=== PATIENT | male | born 1935 | race Caucasian/White ===

== ENCOUNTER 2016-11-11 11:26 | Inpatient (IN) | payer MEDICARE, BC ==
[2016-11-11] MEDS ORDERED: Lactated Ringers 1,000 ML IV SCH (18:15)
[2016-11-11] MEDS ORDERED: Non-Formulary Medication 1 Each (Ondansetron Hcl 8 MG) PO PRN (20:52)
[2016-11-11] MEDS ORDERED: Acetaminophen/oxyCODONE 325-5 MG Tab PO PRN (20:52)
[2016-11-11] MEDS ORDERED: Acetaminophen 500 MG Tab PO PRN (20:52)
[2016-11-11] MEDS ORDERED: PROCHLORPERAZINE MALEATE 10 MG PO PRN (20:52)
[2016-11-11] MEDS ORDERED: Ondansetron 4 MG Tab.DIS PO PRN (21:30)
[2016-11-11] MEDS ORDERED: Prochlorperazine 5 MG Tab PO PRN (21:30)
[2016-11-11] MEDS: Atropine/Diphenoxylate 0.025-2.5 MG Tab PO PRN (21:44)
[2016-11-11] MEDS: Simvastatin 20 MG Tab PO SCH (21:44)
[2016-11-11] MEDS ORDERED: Insulin Detemir 100 Units/ML 3 ML Pen SUBCUT SCH (22:00)
[2016-11-11] MEDS: Acetaminophen 500 MG Tab PO PRN (22:53)
[2016-11-11] MEDS ORDERED: Sodium Chloride 0.9% 1,000 ML IV SCH (23:00)
[2016-11-12] MEDS: Omeprazole 20 MG Cap.CR PO SCH (05:15)
[2016-11-12] MEDS ORDERED: DRONABINOL 2.5 MG PO SCH (07:00)
[2016-11-12] MEDS: Insulin Aspart 100 Units/ML 3 ML Pen SUBCUT SCH ×3 (08:22→18:15)
[2016-11-12] MEDS: Citalopram 20 MG Tab PO SCH (08:23)
[2016-11-12 08:52] LABS: CHLORIDE,CL 106 mmol/L (98-115); SODIUM,NA 140 mmol/L (136-145)
--- NOTE | 2016-11-12 11:10 | PCM.PN ---
- General Info Date of Service: 11/12/16 Admission Dx/Problem (Free Text): Chief complaint: Diarrhea History of present illness: Patient is an 81-year-old white male with a history of stage III rectal carcinoma-status post colostomy and abdominal perineal resection with colostomy in 2016. Patient presented on the day of admission-11/11-with the chief complaint of diarrhea, all very watery stools x2 days, progressing, abdominal pain at times. Patient was not able to eat do to some nausea, felt very weak and appeared dehydrated on the day of admission. Patient had significant decline in overall condition. Patient had stopped chemotherapy mainly due to side effects, along with significant myelosuppression-despite possible deleterious outcomes. Patient is diabetic with insolence supplements-since he had not eaten-blood sugar were elevated evening prior to admission around 280. Patient was admitted to hospital observation care for further workup evaluation and treatment, IV fluids for maintenance of hydration and rehydration. Patient also has a history of multiple DVTs in the past Patient reports today: Doing okay Denies any nausea, vomiting at present Stools and colostomy are still liquid Somewhat dark-history of Pepto-Bismol use yesterday early here and is also historian No abdominal pain at present but significant prior to admission-awake all night with pain prior to admission Quite weak yet Denied any chest pain or shortness of breath Able to take some fluids Denied any cough or cold Nurses report today: Still liquid stools Functional Status: Reports: pain controlled, tolerating diet (Liquid), ambulating (With assist), urinating - Review of Systems General: Reports: Weakness, Fatigue, Malaise. Denies: Fever, Chills, Appetite ( Not optimal-liquid diet) HEENT: Reports: no symptoms Pulmonary: Reports: no symptoms Cardiovascular: Reports: No Symptoms Gastrointestinal: Reports: Abdominal pain (None at present), Decreased appetite , Diarrhea (Persistent-pure liquid, concerned about potential blockage), Nausea, Vomiting Genitourinary: Reports: no symptoms Musculoskeletal: Reports: no symptoms Neurological: Reports: No Symptoms Psychiatric: Reports: no symptoms - Patient Data Vitals - most recent: Last Vital Signs Temp 96.8 F 11/12/16 05:20 Pulse 82 11/12/16 05:20 Resp 18 11/12/16 05:20 BP 103/62 11/12/16 05:20 Pulse Ox 96 11/12/16 05:20 Orthostatic Blood Pressure [ 90/53 Standing] Orthostatic Blood Pressure [ 107/66 Sitting] Orthostatic Blood Pressure [ 115/66 Supine] Weight - most recent: 141 lb 9.6 oz I&O - last 24 hours: Intake & Output 11/11/16 11/12/16 11/12/16 22:59 06:59 14:59 Intake Total 1426 932 Output Total 900 750 Balance 526 182 Lab Results last 24 hrs: Laboratory Results - last 24 hr 11/11/16 11/12/16 11/12/16 Range/Units 21:00 06:48 06:50 Sodium 140 (136-145) mmol/L Potassium 3.4 (3.3-5.3) mmol/L Chloride 106 (98-115) mmol/L Carbon Dioxide 27.6 (21.0-32.0) mmol/L BUN 12 (6-25) mg/dL Creatinine 0.63 (0.51-1.17) mg/dL Est Cr Clr Drug Dosing 82.13 mL/min Estimated GFR (MDRD) > 60 mL/min Glucose 147 H (70-110) mg/dL POC Glucose 277 H 145 H (74-106) mg/dl Calcium 8.3 L (8.7-10.3) mg/dL Philip Results last 24 hrs: Microbiology 11/11/16 17:55 Clostridium difficile Toxin A&B (M) - Final Stool / Feces NEGATIVE CDIFF TOXIN Med Orders - Current: Current Medications Acetaminophen (Tylenol Extra Strength) 1,000 mg PO Q6H PRN PRN Reason: Pain Last Admin: 11/11/16 22:53 Dose: 1,000 mg Allopurinol (Zyloprim) 200 mg PO DAILY@1800 [facility] Citalopram Hydrobromide (Celexa) 20 mg PO DAILY [facility] Last Admin: 11/12/16 08:23 Dose: 20 mg Diphenoxylate HCl/Atropine (Lomotil 0.025-2.5 Mg) 1 tab PO TID PRN PRN Reason: Diarrhea Last Admin: 11/11/16 21:44 Dose: 1 tab Sodium Chloride (Normal Saline) 1,000 mls @ 70 mls/hr IV ASDIRECTED [facility] Last Admin: 11/11/16 22:54 Dose: 70 mls/hr Insulin Aspart (Novolog) 5 unit SUBCUT TIDMEALS [facility] Last Admin: 11/12/16 08:22 Dose: 5 units Insulin Detemir (Levemir) 7 unit SUBCUT BEDTIME [facility] Lisinopril (Prinivil) 2.5 mg PO DAILY@1800 [facility] Non-Formulary Medication (Dronabinol [Marinol]) 2.5 mg PO BIDAC [facility] Omeprazole (Omeprazole) 20 mg PO DAILY@0600 [facility] Last Admin: 11/12/16 05:15 Dose: 20 mg Ondansetron HCl (Zofran Odt) 8 mg PO Q8H PRN PRN Reason: Nausea Oxycodone/Acetaminophen (Percocet 325-5 Mg) 1 tab PO Q4H PRN PRN Reason: Pain Prochlorperazine Maleate (Compazine) 10 mg PO Q6H PRN PRN Reason: Nausea Simvastatin (Zocor) 20 mg PO BEDTIME [facility] Last Admin: 11/11/16 21:44 Dose: 20 mg Sodium Chloride (Syrex Flush) 5 ml FLUSH Q8HR PRN PRN Reason: Keep Vein Open Discontinued Medications Acetaminophen (Tylenol Extra Strength) 1,000 mg PO Q4H PRN PRN Reason: Pain Lactated Ringer's (Ringers, Lactated) 1,000 mls @ 200 mls/hr IV ASDIRECTED [facility] Stop: 11/11/16 23:30 Last Admin: 11/11/16 18:17 Dose: 200 mls/hr Insulin Detemir (Levemir) 7 unit SUBCUT BEDTIME [facility] Stop: 11/11/16 22:01 Last Admin: 11/11/16 22:10 Dose: 7 units - Exam General: alert, oriented, cooperative, no acute distress, other (Lying in bed, thin, very pale, generalized fatigue/weakness, skin turgor fair) HEENT: Pupils equal, Pupils reactive, EOMI, Mucous membr. moist/pink. No: Scleral icterus Neck: supple, trachea midline, no JVD, no thyromegaly. No: lymphadenopathy Lungs: Clear to auscultation Cardiovascular: Regular Rate, Regular Rhythm, No Murmurs Abdomen: bowel sounds present (But significantly decreased), soft, no tenderness , no distension, other (Colostomy bag just pure dark almost black liquid-no solid or soft stool elements at all). No: rigidity, rebound, guarding, tenderness, distension, abnormal bowel sounds, organomegaly Extremities: no edema, no calf tenderness Skin: warm, dry, intact Neurological: no new focal deficit Psy/Mental Status: alert, normal affect, normal mood - Problem List Review Problem List Initiated/Reviewed/Updated: Yes - My Orders Last 24 Hours: My Active Orders 11/11/16 20:52 Acetaminophen/oxyCODONE [Percocet 325-5 MG] 1 tab PO Q4H PRN 11/11/16 20:59 Glucose [Blood Glucose Check, Bedside] [RC] QIDACANDBED 11/11/16 21:00 Simvastatin [Zocor] 20 mg PO BEDTIME 11/11/16 21:30 Ondansetron [Zofran ODT] 8 mg PO Q8H PRN Prochlorperazine [Compazine] 10 mg PO Q6H PRN 11/11/16 21:39 Acetaminophen [Tylenol Extra Strength] 1,000 mg PO Q6H PRN 11/12/16 06:00 Omeprazole 20 mg PO DAILY@0600 11/12/16 07:00 Dronabinol [Marinol] 2.5 mg PO BIDAC 11/12/16 08:00 Insulin Aspart [NovoLOG] 5 unit SUBCUT TIDMEALS 11/12/16 09:00 Citalopram [Celexa] 20 mg PO DAILY 11/12/16 18:00 Allopurinol [Zyloprim] 200 mg PO DAILY@1800 Lisinopril [Prinivil] 2.5 mg PO DAILY@1800 11/12/16 21:00 Insulin Detemir [Levemir] 7 unit SUBCUT BEDTIME - Assessment Assessment:: Acute fasglolg-cejrezrbyu-asdtgtmvgoxm etiology-rule out occult infection, rule out obstruction Acute fkkgjkdoxhe-gtjuedzp-dnnbzjrcw Acute on chronic Marked weakness secondary to above Abdominal pain-significant just prior to admission but controlled at present Rectal carcinoma-stage III Postchemotherapy-multiple weeks ago Status post colostomy and abdominal perineal resection 2010 Adult onset diabetes mellitus type 2 with insolent supplementation-fair control Chronic anticoagulation therapy Hypoalbuminemia Multiple DVT history Chronic kidney disease history Tabw-volu-thypcyutgz at present Hyperlipidemia Cholesterol lowering therapy Thrombocytopenia chronic - Plan Plan:: Reviewed present treatment regimen-continue same regimen except changes as below Increase IV fluids to normal saline at 125 cc per hour Increase diet to full liquids with no dairy products Stool for C&S, O&P, WBC, repeat C. difficile Changed to full admission CBC, CMP in a.m. CAT scan of the abdomen and pelvis in the a.m. Stool for occult blood Talked with patient and his at length-they agree with this evaluation and treatment plan
[2016-11-12] MEDS: Sodium Chloride 0.9% 1,000 ML IV SCH ×2 (12:22→20:28)
[2016-11-12] MEDS: Atropine/Diphenoxylate 0.025-2.5 MG Tab PO PRN (14:56)
[2016-11-12] MEDS: metroNIDAZOLE 500 MG Tab PO SCH ×2 (15:53→21:25)
[2016-11-12] MEDS ORDERED: Non-Formulary Medication 1 Each (Lisinopril [Lisinopril] 2.5 MG) PO SCH (18:00)
[2016-11-12] MEDS: Allopurinol 100 MG Tab PO SCH (18:15)
[2016-11-12] MEDS: Lisinopril 5 MG Tab PO SCH (18:16)
[2016-11-12] MEDS: Simvastatin 20 MG Tab PO SCH (21:25)
[2016-11-12] MEDS: Insulin Detemir 100 Units/ML 3 ML Pen SUBCUT SCH (21:25)
[2016-11-13] MEDS: Sodium Chloride 0.9% 1,000 ML IV SCH ×2 (04:15→11:54)
[2016-11-13] MEDS: Acetaminophen 500 MG Tab PO PRN (04:20)
[2016-11-13] MEDS: metroNIDAZOLE 500 MG Tab PO SCH ×3 (05:42→21:00)
[2016-11-13] MEDS: Omeprazole 20 MG Cap.CR PO SCH (05:42)
[2016-11-13] MEDS: Insulin Aspart 100 Units/ML 3 ML Pen SUBCUT SCH ×3 (08:29→17:53)
[2016-11-13] MEDS: Citalopram 20 MG Tab PO SCH (08:29)
[2016-11-13 08:41] LABS: CHLORIDE,CL 109 mmol/L (98-115); SODIUM,NA 139 mmol/L (136-145)
--- NOTE | 2016-11-13 09:53 | PCM.PN ---
- General Info Date of Service: 11/13/16 Admission Dx/Problem (Free Text): Chief complaint: Diarrhea History of present illness: Patient is an 81-year-old white male with a history of stage III rectal carcinoma-status post colostomy and abdominal perineal resection with colostomy in 2016. Patient presented on the day of admission-11/11-with the chief complaint of diarrhea, all very watery stools x2 days, progressing, abdominal pain at times. Patient was not able to eat do to some nausea, felt very weak and appeared dehydrated on the day of admission. Patient had significant decline in overall condition. Patient had stopped chemotherapy mainly due to side effects, along with significant myelosuppression-despite possible deleterious outcomes. Patient is diabetic with insolence supplements-since he had not eaten-blood sugar were elevated evening prior to admission around 280. Patient was admitted to hospital observation care for further workup evaluation and treatment, IV fluids for maintenance of hydration and rehydration. Patient also has a history of multiple DVTs in the past Repeat stool C. difficile positive-therefore metronidazole 500 mg by mouth every 8 hours added Patient reports today: Reports he is doing okay Denies any pain at present Intermittent abdominal pain Denies any nausea, vomiting Stool still very liquid and Denied any fever, chills, cough, shortness of breath Nurses report today: Looks better today Still having liquid stools Functional Status: Reports: pain controlled, tolerating diet, ambulating - Review of Systems General: Reports: Weakness, Fatigue, Malaise. Denies: Fever, Chills HEENT: Reports: no symptoms Pulmonary: Reports: no symptoms Cardiovascular: Reports: No Symptoms Gastrointestinal: Reports: Abdominal pain (At times), Decreased appetite ( Appetite fair). Denies: Hematochezia, Nausea, Vomiting Genitourinary: Reports: no symptoms Musculoskeletal: Reports: no symptoms Neurological: Reports: No Symptoms Psychiatric: Reports: no symptoms - Patient Data Vitals - most recent: Last Vital Signs Temp 97.9 F 11/13/16 06:25 Pulse 92 11/13/16 06:25 Resp 14 11/13/16 06:25 BP 102/68 11/13/16 06:25 Pulse Ox 95 11/13/16 06:25 Orthostatic Blood Pressure [ 90/53 Standing] Orthostatic Blood Pressure [ 107/66 Sitting] Orthostatic Blood Pressure [ 115/66 Supine] Weight - most recent: 141 lb 9.6 oz I&O - last 24 hours: Intake & Output 11/12/16 11/13/16 11/13/16 22:59 06:59 14:59 Intake Total 1322 1326 Output Total 1100 1050 Balance 222 276 Lab Results last 24 hrs: Laboratory Results - last 24 hr 11/12/16 11/12/16 11/12/16 Range/Units 11:31 17:36 21:18 WBC (5.0-10.0) 10^3/uL RBC (4.50-6.00) 10^6/uL Hgb (13.0-17.0) g/dL Hct (40.0-52.0) % MCV (82.0-92.0) fL MCH (27.0-31.0) pg MCHC (32.0-36.0) g/dL RDW (11.5-14.5) % Plt Count (150-300) 10^3/uL MPV (7.4-10.4) fL Neut % (Auto) (50.0-70.0) % Lymph % (Auto) (20.0-40.0) % Mower % (Auto) (2.0-8.0) % Eos % (Auto) (1.0-3.0) % Baso % (Auto) (0.0-1.0) % Neut # (Auto) (2.5-7.0) 10^3/uL Lymph # (Auto) (1.0-4.0) 10^3/uL Mower # (Auto) (0.1-0.8) 10^3/uL Eos # (Auto) (0.1-0.3) 10^3/uL Baso # (Auto) (0.0-0.1) 10^3/uL Sodium (136-145) mmol/L Potassium (3.3-5.3) mmol/L Chloride (98-115) mmol/L Carbon Dioxide (21.0-32.0) mmol/L BUN (6-25) mg/dL Creatinine (0.51-1.17) mg/dL Est Cr Clr Drug Dosing mL/min Estimated GFR (MDRD) mL/min Glucose (70-110) mg/dL POC Glucose 248 H 266 H 235 H (74-106) mg/dl Calcium (8.7-10.3) mg/dL Total Bilirubin (0.2-1.0) mg/dL AST (15-37) U/L ALT (12-78) U/L Alkaline Phosphatase (46-116) IU/L Total Protein (6.4-8.2) g/dL Albumin (3.00-4.80) g/dL 11/13/16 11/13/16 11/13/16 Range/Units 06:33 07:30 07:30 WBC 4.3 L (5.0-10.0) 10^3/uL RBC 2.70 L (4.50-6.00) 10^6/uL Hgb 8.3 L (13.0-17.0) g/dL Hct 25.2 L (40.0-52.0) % MCV 93.3 H (82.0-92.0) fL MCH 30.6 (27.0-31.0) pg MCHC 32.8 (32.0-36.0) g/dL RDW 20.1 H (11.5-14.5) % Plt Count 107 L (150-300) 10^3/uL MPV 6.2 L (7.4-10.4) fL Neut % (Auto) 71.9 H (50.0-70.0) % Lymph % (Auto) 13.2 L (20.0-40.0) % Mower % (Auto) 13.5 H (2.0-8.0) % Eos % (Auto) 1.1 (1.0-3.0) % Baso % (Auto) 0.3 (0.0-1.0) % Neut # (Auto) 3.1 (2.5-7.0) 10^3/uL Lymph # (Auto) 0.6 L (1.0-4.0) 10^3/uL Mower # (Auto) 0.6 (0.1-0.8) 10^3/uL Eos # (Auto) 0.0 L (0.1-0.3) 10^3/uL Baso # (Auto) 0.0 (0.0-0.1) 10^3/uL Sodium 139 (136-145) mmol/L Potassium 3.2 L (3.3-5.3) mmol/L Chloride 109 (98-115) mmol/L Carbon Dioxide 24.9 (21.0-32.0) mmol/L BUN 6 (6-25) mg/dL Creatinine 0.58 (0.51-1.17) mg/dL Est Cr Clr Drug Dosing 89.21 mL/min Estimated GFR (MDRD) > 60 mL/min Glucose 130 H (70-110) mg/dL POC Glucose 149 H (74-106) mg/dl Calcium 7.8 L (8.7-10.3) mg/dL Total Bilirubin 0.4 (0.2-1.0) mg/dL AST 15 (15-37) U/L ALT 8 L (12-78) U/L Alkaline Phosphatase 75 (46-116) IU/L Total Protein 5.3 L (6.4-8.2) g/dL Albumin 1.94 L (3.00-4.80) g/dL Philip Results last 24 hrs: Microbiology 11/12/16 12:15 Stool for WBCs - Final Stool / Feces NO WBC SEEN 11/12/16 12:15 Clostridium difficile Toxin A&B (M) - Final Stool / Feces - Stool, Liquid Positive C. Diff Toxin 11/12/16 12:15 Occult Blood - Final Stool / Feces Med Orders - Current: Current Medications Acetaminophen (Tylenol Extra Strength) 1,000 mg PO Q6H PRN PRN Reason: Pain Last Admin: 11/13/16 04:20 Dose: 1,000 mg Allopurinol (Zyloprim) 200 mg PO DAILY@1800 [facility] Last Admin: 11/12/16 18:15 Dose: 200 mg Citalopram Hydrobromide (Celexa) 20 mg PO DAILY [facility] Last Admin: 11/13/16 08:29 Dose: 20 mg Diphenoxylate HCl/Atropine (Lomotil 0.025-2.5 Mg) 1 tab PO TID PRN PRN Reason: Diarrhea Last Admin: 11/12/16 14:56 Dose: 1 tab Sodium Chloride (Normal Saline) 1,000 mls @ 125 mls/hr IV ASDIRECTED [facility] Last Admin: 11/13/16 04:15 Dose: 125 mls/hr Insulin Aspart (Novolog) 5 unit SUBCUT TIDMEALS [facility] Last Admin: 11/13/16 08:29 Dose: 5 units Insulin Detemir (Levemir) 7 unit SUBCUT BEDTIME [facility] Last Admin: 11/12/16 21:25 Dose: 7 units Lisinopril (Prinivil) 2.5 mg PO DAILY@1800 [facility] Last Admin: 11/12/16 18:16 Dose: 2.5 mg Metronidazole (Flagyl) 500 mg PO Q8HR [facility] Last Admin: 11/13/16 05:42 Dose: 500 mg Non-Formulary Medication (Dronabinol [Marinol]) 2.5 mg PO BIDAC [facility] Omeprazole (Omeprazole) 20 mg PO DAILY@0600 [facility] Last Admin: 11/13/16 05:42 Dose: 20 mg Ondansetron HCl (Zofran Odt) 8 mg PO Q8H PRN PRN Reason: Nausea Oxycodone/Acetaminophen (Percocet 325-5 Mg) 1 tab PO Q4H PRN PRN Reason: Pain Prochlorperazine Maleate (Compazine) 10 mg PO Q6H PRN PRN Reason: Nausea Simvastatin (Zocor) 20 mg PO BEDTIME [facility] Last Admin: 11/12/16 21:25 Dose: 20 mg Sodium Chloride (Syrex Flush) 5 ml FLUSH Q8HR PRN PRN Reason: Keep Vein Open Discontinued Medications Acetaminophen (Tylenol Extra Strength) 1,000 mg PO Q4H PRN PRN Reason: Pain Lactated Ringer's (Ringers, Lactated) 1,000 mls @ 200 mls/hr IV ASDIRECTED [facility] Stop: 11/11/16 23:30 Last Admin: 11/11/16 18:17 Dose: 200 mls/hr Sodium Chloride (Normal Saline) 1,000 mls @ [facility] Last Admin: 11/11/16 22:54 Dose: 70 mls/hr Insulin Detemir (Levemir) 7 unit SUBCUT BEDTIME [facility] Stop: 11/11/16 22:01 Last Admin: 11/11/16 22:10 Dose: 7 units - Exam General: alert, oriented, cooperative, no acute distress, other (Sitting up in chair-sleeping when I entered the room-wakes up easily, very fatigued overall, skin warm dry, pale no acute respiratory cardiac distress) HEENT: Pupils equal, Pupils reactive, EOMI, Mucous membr. moist/pink. No: Scleral icterus Neck: supple, trachea midline, no JVD, no thyromegaly. No: lymphadenopathy Lungs: Clear to auscultation, Normal respiratory effort Cardiovascular: Regular Rate, Regular Rhythm, No Murmurs Abdomen: bowel sounds present, soft, no distension, tenderness (Very slight nonspecific diffuse tenderness), other (Colostomy still draining 90% liquid clear broad-no major melena today as compared to yesterday, few pieces of firmer stool noted around colostomy). No: rigidity, rebound, guarding, distension, abnormal bowel sounds, organomegaly Extremities: no edema, no calf tenderness Skin: warm, dry, intact Neurological: no new focal deficit, other (Significant generalized weakness/ fatigue) Psy/Mental Status: alert, normal affect, normal mood - Problem List Review Problem List Initiated/Reviewed/Updated: Yes - My Orders Last 24 Hours: My Active Orders 11/12/16 09:00 Citalopram [Celexa] 20 mg PO DAILY 11/12/16 11:26 Admission Status [Patient Status] [ADT] Routine 11/12/16 11:30 Sodium Chloride 0.9% [Normal Saline] 1,000 ml IV ASDIRECTED 11/12/16 15:45 metroNIDAZOLE [Flagyl] 500 mg PO Q8HR 11/12/16 18:00 Allopurinol [Zyloprim] 200 mg PO DAILY@1800 Lisinopril [Prinivil] 2.5 mg PO DAILY@1800 11/12/16 21:00 Insulin Detemir [Levemir] 7 unit SUBCUT BEDTIME 11/12/16 Lunch [employer] Diet [DIET] Full Liquid Diet [DIET] - Assessment Assessment:: Acute hxqthvhk-osapuyorlg-oxfxqmwwy to pseudomembranous colitis/C. difficile- appears to be slightly better today but very slight Acute dehydration-clinically controlled Acute on chronic Marked weakness secondary to above-still not optimal Hypokalemia secondary to above Anemia-significant increase-some delusional but also GI blood loss GI bleeding-suspect secondary to pseudomembranous colitis and potential rectal carcinoma Abdominal pain-significant just prior to admission but controlled at present- still having some pain at times Rectal carcinoma-stage III-rule out recurrence Postchemotherapy-multiple weeks ago Status post colostomy and abdominal perineal resection 2009 Adult onset diabetes mellitus type 2 with insolent supplementation-fair control Chronic anticoagulation therapy Hypoalbuminemia Multiple DVT history Chronic kidney disease history Mvlz-cxat-ollstgbiom at present Hyperlipidemia Cholesterol lowering therapy Thrombocytopenia chronic - Plan Plan:: Reviewed present treatment regimen-continue same regimen except changes as below Decrease IV fluids to normal saline at 50 cc per hour Increase diet to ADA soft with no dairy products Potassium 20 mEq one by mouth twice a day CBC, BMP in a.m. CAT scan of the abdomen and pelvis-plan for in the a.m. instead of today Talked with patient at length-he agrees with this evaluation and treatment plan
[2016-11-13] MEDS: Lisinopril 5 MG Tab PO SCH (17:52)
[2016-11-13] MEDS: Potassium Chloride 10 MEQ Tab.ER PO SCH (17:52)
[2016-11-13] MEDS: Allopurinol 100 MG Tab PO SCH (17:53)
[2016-11-13] MEDS: Insulin Detemir 100 Units/ML 3 ML Pen SUBCUT SCH (20:51)
[2016-11-13] MEDS: Simvastatin 20 MG Tab PO SCH (20:51)
[2016-11-14] MEDS: metroNIDAZOLE 500 MG Tab PO SCH ×3 (05:48→21:56)
[2016-11-14] MEDS: Omeprazole 20 MG Cap.CR PO SCH (05:48)
[2016-11-14 07:48] LABS: CHLORIDE,CL 107 mmol/L (98-115); SODIUM,NA 141 mmol/L (136-145)
[2016-11-14] MEDS ORDERED: Iopamidol 612 MG/ML 75 ML Bottle IVPUSH ONE (08:52)
[2016-11-14] MEDS ORDERED: Sodium Chloride 0.9% 50 ML SDV FLUSH SCH (09:00)
[2016-11-14] MEDS: Potassium Chloride 10 MEQ Tab.ER PO SCH (09:01)
[2016-11-14] MEDS: Citalopram 20 MG Tab PO SCH (09:02)
[2016-11-14] MEDS: Insulin Aspart 100 Units/ML 3 ML Pen SUBCUT SCH ×3 (09:02→17:54)
[2016-11-14] MEDS: Sodium Chloride 0.9% 1,000 ML IV SCH (10:22)
[2016-11-14] MEDS: Sodium Chloride 0.9% 5 ML Syringe FLUSH PRN (10:23)
[2016-11-14] MEDS ORDERED: Potassium Chloride 20 MEQ Tab.ER PO SCH (12:52)
--- NOTE | 2016-11-14 12:59 | PN ---
11/14/2016 PATIENT NAME: RIAN JUSTIN SUBJECTIVE: This is an 81-year-old gentleman, who came to the clinic with concerns about severe diarrhea out of his colostomy. The patient does have a history of colon cancer and had a colostomy placement. It was coming out for two days of just mostly water out of his colostomy. He was admitted for dehydration. The patient was found to be positive for Clostridium difficile. The patient states that he is feeling okay today. He has no abdominal pain. He has been eating okay. He denies any abdominal cramping. He states that he is still getting a lot of water out of his colostomy. OBJECTIVE: VITAL SIGNS: Today, temperature is 98.1, pulse is 96, blood pressure is 123/72, respiratory rate is 16, oxygen saturations on room air are 98%. GENERAL: This is an elderly white gentleman, in no acute distress. LUNGS: Sounds are clear throughout lung rojas. ABDOMEN: Nontender and nondistended. Bowel sounds are hyperactive. The contents of colostomy bag are basically green water. HEART: Tones are regular rate and rhythm. No murmurs identified. The patient is pale in color. LABORATORY DATA: The patient's lab work today, CBC shows white count within normal range of 5.0, hemoglobin is 9.5. Chemistry panel is unremarkable. IMPRESSION AND PLAN: 1. Clostridium difficile infection. We will continue with Flagyl 500 mg IV every 8 hours. We will continue with IV fluids of normal saline at 50 mL an hour. We will continue with omeprazole 20 mg daily. We will also continue with Lomotil as needed. We will continue with a soft diet with no milk products. CT scan of abdomen performed today does show mild ascites with inflammatory changes consistent with C-diff infection, some gallbladder wall thickening per radiology. 2. History of gout. Continue with allopurinol 200 mg daily. 3. History of depression. Continue with Celexa 20 mg daily. 4. History of diabetes mellitus. Continue with Levemir 7 units twice a day, along with sliding scale NovoLog insulin. Also continue with lisinopril 2.5 mg daily for renal protection. We will continue with blood sugar checks 4 times daily. 5. History of hyperlipidemia. Continue with Zocor 20 mg daily. /[id number]/MODL MTDD
[2016-11-14] MEDS: Lisinopril 5 MG Tab PO SCH (17:53)
[2016-11-14] MEDS: Allopurinol 100 MG Tab PO SCH (17:54)
[2016-11-14] MEDS: Potassium Chloride 20 MEQ Tab.ER PO SCH (17:54)
[2016-11-14] MEDS: Simvastatin 20 MG Tab PO SCH (20:56)
[2016-11-14] MEDS: Insulin Detemir 100 Units/ML 3 ML Pen SUBCUT SCH (20:56)
[2016-11-15] MEDS: metroNIDAZOLE 500 MG Tab PO SCH ×3 (06:09→21:16)
[2016-11-15] MEDS: Omeprazole 20 MG Cap.CR PO SCH (06:09)
[2016-11-15] MEDS: Sodium Chloride 0.9% 1,000 ML IV SCH ×2 (06:09→22:38)
[2016-11-15] MEDS: Citalopram 20 MG Tab PO SCH (08:10)
[2016-11-15] MEDS: Insulin Aspart 100 Units/ML 3 ML Pen SUBCUT SCH ×3 (08:10→18:12)
[2016-11-15] MEDS: Potassium Chloride 20 MEQ Tab.ER PO SCH ×2 (08:10→18:15)
[2016-11-15] MEDS: B.Bifidum/B.Longum/L.Acidophilus/L.Rhamnosus (Probiotic) Cap PO SCH ×2 (10:18→18:15)
--- NOTE | 2016-11-15 12:03 | PN ---
11/15/2016 PATIENT NAME: RIAN JUSTIN SUBJECTIVE: This is an 81-year-old patient who had presented to the clinic with concerns about diarrhea. The patient recently had colon resection due to colon cancer and had a colostomy placed. He had stated that he was having lots of watery stools from his colostomy. He was admitted to the hospital and found out that he had C. diff. The patient states today he feels fine. He says he has no abdominal pain. No nausea. He does not really know why he is in the hospital. He does state that he continues to have lots of watery stools through his colostomy. He denies any fever or chills. OBJECTIVE: VITAL SIGNS: Today, temperature is 98.3, pulse is 107, blood pressure is 118/72. The patient's respiratory rate is 18, oxygen saturations are 97% on room air. GENERAL: This is an elderly, male, in no acute distress. HEART: Tones are regular rate and rhythm. LUNGS: Sounds are clear throughout lung rojas. ABDOMEN: Soft, nontender, nondistended. Hyperactive bowel sounds. Colostomy is draining green water with some chunks of stool. LAB WORK: He did not have any lab work drawn today. Yesterday, his CBC showed white count at 5.0, hemoglobin 9.5. Chemistry panel was unremarkable. IMPRESSION AND PLAN: 1. Clostridium difficile infection. We will continue with Flagyl 500 mg every 8 hours orally. We will increase patient's IV fluids of normal saline to 100 mL an hour. The patient's I's and Os were to the negative. He has been putting lots of stool out of his colostomy bag. We will continue with omeprazole 20 mg daily. Discontinued Lomotil today. We advanced the patient's diet to an ADA diabetic diet with no milk products. CT of the abdomen performed yesterday did show some mild ascites, inflammatory changes consistent with C. diff infection and some gallbladder wall thickening with no signs of cholecystitis. 2. History of gout. Continue with allopurinol 200 mg daily. 3. History of depression. Continue with Celexa 20 mg daily. 4. History of diabetes mellitus. Continue with blood sugar checks four times a day. We will continue with Levemir 7 units twice a day along with the patient's NovoLog, takes NovoLog 5 units with each meal. We will also continue with lisinopril 2.5 mg daily for renal protection. 5. History of hyperlipidemia. Continue with Zocor 20 mg daily. OVERALL PLAN: We will see if oral Flagyl is effective. If not we may consider switching to oral vancomycin. We will continue with IV fluids for hydration. /[id number]/MODL MTDD
[2016-11-15] MEDS: Lisinopril 5 MG Tab PO SCH (18:16)
[2016-11-15] MEDS: Allopurinol 100 MG Tab PO SCH (18:17)
[2016-11-15] MEDS: Insulin Detemir 100 Units/ML 3 ML Pen SUBCUT SCH (21:16)
[2016-11-15] MEDS: Simvastatin 20 MG Tab PO SCH (21:16)
[2016-11-15] MEDS: Sodium Chloride 0.9% 5 ML Syringe FLUSH PRN (22:39)
[2016-11-16] MEDS: Sodium Chloride 0.9% 5 ML Syringe FLUSH PRN (06:08)
[2016-11-16] MEDS: metroNIDAZOLE 500 MG Tab PO SCH (06:08)
[2016-11-16] MEDS: Omeprazole 20 MG Cap.CR PO SCH (06:08)
[2016-11-16 07:57] LABS: CHLORIDE,CL 107 mmol/L (98-115); SODIUM,NA 141 mmol/L (136-145)
[2016-11-16] MEDS ORDERED: metroNIDAZOLE/Normal Saline 500 MG in Premix Bag 1 BAG IV SCH (08:15)
[2016-11-16] MEDS: Potassium Chloride 20 MEQ Tab.ER PO SCH ×2 (08:44→17:50)
[2016-11-16] MEDS: Citalopram 20 MG Tab PO SCH (08:45)
[2016-11-16] MEDS: Insulin Aspart 100 Units/ML 3 ML Pen SUBCUT SCH ×3 (08:46→17:51)
[2016-11-16] MEDS: VANCOMYCIN PO SCH ×4 (10:28→21:34)
[2016-11-16] MEDS: B.Bifidum/B.Longum/L.Acidophilus/L.Rhamnosus (Probiotic) Cap PO SCH ×2 (10:29→17:50)
--- NOTE | 2016-11-16 13:04 | PN ---
11/16/2016 PATIENT NAME: RIAN JUSTIN SUBJECTIVE: The patient states that he has been eating okay. He has no nausea, no vomiting. He denies any abdominal pain. He denies any fever or chills. He states that he is having still lots of liquid output coming out of his colostomy. He has no further questions. OBJECTIVE: VITAL SIGNS: Today, temperature is 97.6, pulse is 83, blood pressure is 142/85, the patient's respiratory rate is 16, oxygen saturations are 98% on room air. GENERAL: This is an elderly white gentleman in no acute distress. LUNGS: Sounds are clear throughout lung rojas. HEART: Tones are regular rate and rhythm. No murmurs identified. ABDOMEN: Soft, nontender. Bowel sounds are hyperactive. Colostomy bag has green water with few chunks in it. No pain with palpation to the abdomen. LABORATORY DATA: The patient's laboratory work that was obtained today: Chemistry panel shows sodium 141, potassium at 4.4, BUN at 5, creatinine at 0.63. Otherwise, the rest of the panel is unremarkable. IMPRESSION AND PLAN: 1. Clostridium difficile infection. Plan: Nursing staff had reported that they found pills of Flagyl in the patient's colostomy bag. I am going to switch the patient from Flagyl orally to Flagyl 500 mg every 8 hours IV. We will continue with probiotics orally. I am also going to add vancomycin oral suspension 250 mg four times a day for dual therapy. We will continue with IV hydration, normal saline at 100 mL an hour. The patient's input and output shows that he is negative 1825 mL. His weight has been stable. We will continue with an ADA diabetic diet with no milk products. Lomotil or Imodium were discontinued. 2. History of gout. Continue with allopurinol 200 mg daily. 3. History of depression. Plan: Continue with Celexa 20 mg daily. 4. History of diabetes mellitus. Plan: Continue with blood sugar checks four times a day. We will continue with Levemir 7 units twice a day along with the patient's NovoLog, may take 5 units with each meal. Also continue with lisinopril 2.5 mg daily for renal protection. The patient's blood sugars have been running very good, within acceptable range. 5. History of hyperlipidemia. Plan: Continue with Zocor 20 mg daily. 6. Hypokalemia. Resolved. The patient's potassium was 3.8. He was given a potassium cocktail yesterday. Today, his potassium is within normal range at 4.4. /[id number]/MODL MTDD
[2016-11-16] MEDS: metroNIDAZOLE/Normal Saline 500 MG in Premix Bag 1 BAG IV SCH ×2 (13:44→21:36)
[2016-11-16] MEDS: Lisinopril 5 MG Tab PO SCH (17:52)
[2016-11-16] MEDS: Allopurinol 100 MG Tab PO SCH (17:53)
[2016-11-16] MEDS: Sodium Chloride 0.9% 1,000 ML IV SCH (19:40)
[2016-11-16] MEDS: Insulin Detemir 100 Units/ML 3 ML Pen SUBCUT SCH (21:32)
[2016-11-16] MEDS: Simvastatin 20 MG Tab PO SCH (21:35)
[2016-11-17] MEDS: Omeprazole 20 MG Cap.CR PO SCH (05:47)
[2016-11-17] MEDS: metroNIDAZOLE/Normal Saline 500 MG in Premix Bag 1 BAG IV SCH ×3 (05:48→21:54)
[2016-11-17] MEDS: Potassium Chloride 20 MEQ Tab.ER PO SCH ×2 (08:15→18:00)
[2016-11-17] MEDS: Citalopram 20 MG Tab PO SCH (08:16)
[2016-11-17] MEDS: Insulin Aspart 100 Units/ML 3 ML Pen SUBCUT SCH ×3 (08:22→18:02)
[2016-11-17] MEDS: Sodium Chloride 0.9% 1,000 ML IV SCH ×2 (08:24→19:22)
[2016-11-17 09:05] LABS: CHLORIDE,CL 106 mmol/L (98-115); SODIUM,NA 138 mmol/L (136-145)
[2016-11-17] MEDS: VANCOMYCIN PO SCH ×4 (10:03→20:39)
[2016-11-17] MEDS: Octreotide 100 MCG/ML SDV SUBCUT SCH ×2 (10:03→20:40)
--- NOTE | 2016-11-17 11:34 | PN ---
11/17/2016 PATIENT NAME: RIAN JUSTIN SUBJECTIVE: The patient states that his appetite has not been real good, but he has been eating. He denies any abdominal pain. He denies any nausea. He states that he has been having a lot of output of his colostomy. He has been going to the bathroom a lot. He feels okay otherwise. OBJECTIVE: VITAL SIGNS: Today, temperature is 98.7, pulse is 99, blood pressure is 136/76, respiratory rate is 16, oxygen saturation 97% on room air. GENERAL: This is an elderly white male, in no acute distress. HEART: Tones are regular rate and rhythm. No murmurs identified. LUNGS: Sounds are clear with auscultation through all lung rojas. ABDOMEN: Soft, nontender. Bowel sounds are hyperactive. Colostomy has mostly green water with chunks in his colostomy bag. LABS: The patient's I and O from yesterday, he is still -2175 mL. Lab work that was obtained today; sodium was within normal range at 138, potassium 4.3, chloride 106, BUN 5, creatinine 0.65, GFR greater than 60, calcium is 8.7. IMPRESSION AND PLAN: 1. Clostridium difficile infection. Plan; we will continue with Flagyl 500 mg IV every 8 hours along with vancomycin oral suspension 250 mg four times a day. We will continue with normal saline at 100 mL/h. We will continue with accurate I's and O's. We are going to start the patient on octreotide subcutaneous injections 100 mg twice a day to help slow done his colostomy output. We will continue with an ADA diet with no milk products. Lomotil and Imodium have been discontinued. We do have the patient on probiotics one capsule twice a day. 2. History of gout. Plan; continue with allopurinol 200 mg daily. 3. History of depression. Plan; continue with Celexa 20 mg daily. 4. History of diabetes mellitus. Plan; continue with blood sugar checks four times a day. We will continue with Levemir 7 units twice a day along with patient's NovoLog, he takes five units with each meal. We will also continue with lisinopril 2.5 mg daily for renal protection. The patient's blood sugars have been well controlled while here in the hospital. 5. History of hyperlipidemia. Plan; continue with Zocor 20 mg daily. /[id number]/MODL MTDD
[2016-11-17] MEDS: B.Bifidum/B.Longum/L.Acidophilus/L.Rhamnosus (Probiotic) Cap PO SCH ×2 (12:55→18:01)
[2016-11-17] MEDS: Lisinopril 5 MG Tab PO SCH (18:01)
[2016-11-17] MEDS: Allopurinol 100 MG Tab PO SCH (18:05)
[2016-11-17] MEDS: Simvastatin 20 MG Tab PO SCH (20:39)
[2016-11-17] MEDS: Insulin Detemir 100 Units/ML 3 ML Pen SUBCUT SCH (20:50)
[2016-11-18] MEDS: Omeprazole 20 MG Cap.CR PO SCH (05:48)
[2016-11-18] MEDS: metroNIDAZOLE/Normal Saline 500 MG in Premix Bag 1 BAG IV SCH ×3 (05:49→21:59)
[2016-11-18 07:45] LABS: CHLORIDE,CL 108 mmol/L (98-115); SODIUM,NA 141 mmol/L (136-145)
[2016-11-18] MEDS: Potassium Chloride 20 MEQ Tab.ER PO SCH ×2 (08:10→17:15)
[2016-11-18] MEDS: Insulin Aspart 100 Units/ML 3 ML Pen SUBCUT SCH ×3 (08:11→17:47)
[2016-11-18] MEDS: B.Bifidum/B.Longum/L.Acidophilus/L.Rhamnosus (Probiotic) Cap PO SCH ×2 (08:11→17:15)
[2016-11-18] MEDS: Citalopram 20 MG Tab PO SCH (08:13)
[2016-11-18] MEDS: Sodium Chloride 0.9% 1,000 ML IV SCH ×2 (08:15→19:50)
[2016-11-18] MEDS: VANCOMYCIN PO SCH ×4 (09:53→21:57)
[2016-11-18] MEDS: Octreotide 100 MCG/ML SDV SUBCUT SCH ×2 (09:54→21:58)
[2016-11-18] MEDS: Lisinopril 5 MG Tab PO SCH (17:15)
[2016-11-18] MEDS: Allopurinol 100 MG Tab PO SCH (17:18)
[2016-11-18] MEDS: Insulin Detemir 100 Units/ML 3 ML Pen SUBCUT SCH (21:58)
[2016-11-18] MEDS: Simvastatin 20 MG Tab PO SCH (21:59)
[2016-11-19] MEDS: Omeprazole 20 MG Cap.CR PO SCH (06:16)
[2016-11-19] MEDS: metroNIDAZOLE/Normal Saline 500 MG in Premix Bag 1 BAG IV SCH ×3 (06:17→21:28)
[2016-11-19] MEDS: Sodium Chloride 0.9% 1,000 ML IV SCH (07:56)
[2016-11-19] MEDS: Insulin Aspart 100 Units/ML 3 ML Pen SUBCUT SCH ×3 (07:57→18:00)
[2016-11-19] MEDS: Potassium Chloride 20 MEQ Tab.ER PO SCH ×2 (07:57→17:31)
[2016-11-19] MEDS: B.Bifidum/B.Longum/L.Acidophilus/L.Rhamnosus (Probiotic) Cap PO SCH ×2 (07:57→17:32)
[2016-11-19] MEDS: Citalopram 20 MG Tab PO SCH (08:00)
[2016-11-19] MEDS: Octreotide 100 MCG/ML SDV SUBCUT SCH ×2 (09:29→21:24)
[2016-11-19] MEDS: VANCOMYCIN PO SCH ×4 (09:30→21:22)
[2016-11-19 09:41] LABS: CHLORIDE,CL 107 mmol/L (98-115); SODIUM,NA 141 mmol/L (136-145)
--- NOTE | 2016-11-19 10:10 | PCM.PN ---
- General Info Date of Service: 11/19/16 Subjective Update: Patient reports he is feeling quite well. He states he doesn't have much of an appetite, but is eating. He states he hasn't been drinking as much as he should. He states he is a little weak especially when he first gets up. Functional Status: Reports: pain controlled, tolerating diet, ambulating, urinating. Denies: new symptoms - Review of Systems General: Reports: Weakness, Fatigue Pulmonary: Denies: shortness of breath Cardiovascular: Denies: Chest Pain, Edema Gastrointestinal: Reports: Decreased appetite, Other (Colostomy bag-stools have slowed down). Denies: Abdominal pain, Nausea, Vomiting - Patient Data Vitals - most recent: Last Vital Signs Temp 98.0 F 11/19/16 06:13 Pulse 83 11/19/16 06:13 Resp 20 11/19/16 06:13 BP 111/67 11/19/16 06:13 Pulse Ox 97 11/19/16 06:13 Orthostatic Blood Pressure [ 90/53 Standing] Orthostatic Blood Pressure [ 107/66 Sitting] Orthostatic Blood Pressure [ 115/66 Supine] Weight - most recent: 141 lb 9.6 oz I&O - last 24 hours: Intake & Output 11/18/16 11/19/16 11/19/16 22:59 06:59 14:59 Intake Total 120 822 Balance 120 822 Lab Results last 24 hrs: Laboratory Results - last 24 hr 11/18/16 11/18/16 11/18/16 Range/Units 11:16 17:45 21:54 WBC (5.0-10.0) 10^3/uL RBC (4.50-6.00) 10^6/uL Hgb (13.0-17.0) g/dL Hct (40.0-52.0) % MCV (82.0-92.0) fL MCH (27.0-31.0) pg MCHC (32.0-36.0) g/dL RDW (11.5-14.5) % Plt Count (150-300) 10^3/uL MPV (7.4-10.4) fL Neut % (Auto) (50.0-70.0) % Lymph % (Auto) (20.0-40.0) % [place] % (Auto) (2.0-8.0) % Eos % (Auto) (1.0-3.0) % Baso % (Auto) (0.0-1.0) % Neut # (Auto) (2.5-7.0) 10^3/uL Lymph # (Auto) (1.0-4.0) 10^3/uL [place] # (Auto) (0.1-0.8) 10^3/uL Eos # (Auto) (0.1-0.3) 10^3/uL Baso # (Auto) (0.0-0.1) 10^3/uL Sodium (136-145) mmol/L Potassium (3.3-5.3) mmol/L Chloride (98-115) mmol/L Carbon Dioxide (21.0-32.0) mmol/L BUN (6-25) mg/dL Creatinine (0.51-1.17) mg/dL Est Cr Clr Drug Dosing mL/min Estimated GFR (MDRD) mL/min Glucose (70-110) mg/dL POC Glucose 199 H 163 H 144 H (74-106) mg/dl Calcium (8.7-10.3) mg/dL Total Bilirubin (0.2-1.0) mg/dL AST (15-37) U/L ALT (12-78) U/L Alkaline Phosphatase (46-116) IU/L Total Protein (6.4-8.2) g/dL Albumin (3.00-4.80) g/dL 11/19/16 11/19/16 11/19/16 Range/Units 06:16 09:10 09:10 WBC 5.4 (5.0-10.0) 10^3/uL RBC 3.06 L (4.50-6.00) 10^6/uL Hgb 9.2 L (13.0-17.0) g/dL Hct 29.0 L (40.0-52.0) % MCV 94.7 H (82.0-92.0) fL MCH 30.0 (27.0-31.0) pg MCHC 31.7 L (32.0-36.0) g/dL RDW 19.1 H (11.5-14.5) % Plt Count 144 L (150-300) 10^3/uL MPV 6.0 L (7.4-10.4) fL Neut % (Auto) 76.4 H (50.0-70.0) % Lymph % (Auto) 9.1 L (20.0-40.0) % [place] % (Auto) 10.9 H (2.0-8.0) % Eos % (Auto) 3.1 H (1.0-3.0) % Baso % (Auto) 0.5 (0.0-1.0) % Neut # (Auto) 4.1 (2.5-7.0) 10^3/uL Lymph # (Auto) 0.5 L (1.0-4.0) 10^3/uL [place] # (Auto) 0.6 (0.1-0.8) 10^3/uL Eos # (Auto) 0.2 (0.1-0.3) 10^3/uL Baso # (Auto) 0.0 (0.0-0.1) 10^3/uL Sodium 141 (136-145) mmol/L Potassium 4.1 (3.3-5.3) mmol/L Chloride 107 (98-115) mmol/L Carbon Dioxide 26.4 (21.0-32.0) mmol/L BUN 9 (6-25) mg/dL Creatinine 0.67 (0.51-1.17) mg/dL Est Cr Clr Drug Dosing 77.22 mL/min Estimated GFR (MDRD) > 60 mL/min Glucose 168 H (70-110) mg/dL POC Glucose 87 (74-106) mg/dl Calcium 8.1 L (8.7-10.3) mg/dL Total Bilirubin 0.4 (0.2-1.0) mg/dL AST 15 (15-37) U/L ALT 8 L (12-78) U/L Alkaline Phosphatase 60 (46-116) IU/L Total Protein 5.7 L (6.4-8.2) g/dL Albumin 2.29 L (3.00-4.80) g/dL Med Orders - Current: Current Medications Acetaminophen (Tylenol Extra Strength) 1,000 mg PO Q6H PRN PRN Reason: Pain Last Admin: 11/13/16 04:20 Dose: 1,000 mg Allopurinol (Zyloprim) 200 mg PO DAILY@1800 [facility] Last Admin: 11/18/16 17:18 Dose: 200 mg Citalopram Hydrobromide (Celexa) 20 mg PO DAILY [facility] Last Admin: 11/19/16 08:00 Dose: 20 mg Metronidazole 500 mg/ Premix 100 mls @ 100 mls/hr IV Q8H [facility] Last Admin: 11/19/16 06:17 Dose: 100 mls/hr Insulin Aspart (Novolog) 5 unit SUBCUT TIDMEALS [facility] Last Admin: 11/19/16 07:57 Dose: Not Given Insulin Detemir (Levemir) 7 unit SUBCUT BEDTIME [facility] Last Admin: 11/18/16 21:58 Dose: 7 units Lactobacillus Acidophilus/Rhamnosus (Multi-Ludmila Plus) 1 cap PO BID@0800,1800 [facility] Last Admin: 11/19/16 07:57 Dose: 1 cap Lisinopril (Prinivil) 2.5 mg PO DAILY@1800 [facility] Last Admin: 11/18/16 17:15 Dose: 2.5 mg Octreotide Acetate (Sandostatin) 100 mcg SUBCUT BID [facility] Last Admin: 11/19/16 09:29 Dose: 100 mcg Omeprazole (Omeprazole) 20 mg PO DAILY@0600 [facility] Last Admin: 11/19/16 06:16 Dose: 20 mg Ondansetron HCl (Zofran Odt) 8 mg PO Q8H PRN PRN Reason: Nausea Oxycodone/Acetaminophen (Percocet 325-5 Mg) 1 tab PO Q4H PRN PRN Reason: Pain Potassium Chloride (Klor-Con M20) 20 meq PO BIDMEALS [facility] Last Admin: 11/19/16 07:57 Dose: 20 meq Prochlorperazine Maleate (Compazine) 10 mg PO Q6H PRN PRN Reason: Nausea Simvastatin (Zocor) 20 mg PO BEDTIME [facility] Last Admin: 11/18/16 21:59 Dose: 20 mg Sodium Chloride (Syrex Flush) 5 ml FLUSH Q8HR PRN PRN Reason: Keep Vein Open Last Admin: 11/16/16 06:08 Dose: 5 ml Vancomycin HCl (Vancomycin) 0.25 gm PO QID [facility] Last Admin: 11/19/16 09:30 Dose: 0.25 gm Discontinued Medications Acetaminophen (Tylenol Extra Strength) 1,000 mg PO Q4H PRN PRN Reason: Pain Diphenoxylate HCl/Atropine (Lomotil 0.025-2.5 Mg) 1 tab PO TID PRN PRN Reason: Diarrhea Last Admin: 11/12/16 14:56 Dose: 1 tab Lactated Ringer's (Ringers, Lactated) 1,000 mls @ 200 mls/hr IV ASDIRECTED [facility] Stop: 11/11/16 23:30 Last Admin: 11/11/16 18:17 Dose: 200 mls/hr Sodium Chloride (Normal Saline) 1,000 mls @ 70 mls/hr IV ASDIRECTED [facility] Last Admin: 11/11/16 22:54 Dose: 70 mls/hr Sodium Chloride (Normal Saline) 1,000 mls @ 125 mls/hr IV ASDIRECTED [facility] Last Admin: 11/13/16 04:15 Dose: 125 mls/hr Sodium Chloride (Normal Saline) 1,000 mls @ 50 mls/hr IV ASDIRECTED [facility] Last Admin: 11/15/16 06:09 Dose: 50 mls/hr Sodium Chloride (Normal Saline) 1,000 mls @ 100 mls/hr IV ASDIRECTED [facility] Last Admin: 11/19/16 07:56 Dose: 100 mls/hr Potassium Chloride (Kcl 20 Meq In Water 100 Ml) 200 mls @ 50 mls/hr IV ONETIME ONE Stop: 11/15/16 13:59 Last Admin: 11/15/16 10:19 Dose: 50 mls/hr Metronidazole 500 mg/ Premix 100 mls @ 100 mls/hr IV Q8H [facility] Last Admin: 11/16/16 10:35 Dose: Not Given Insulin Detemir (Levemir) 7 unit SUBCUT BEDTIME [facility] Stop: 11/11/16 22:01 Last Admin: 11/11/16 22:10 Dose: 7 units Iopamidol (Isovue-300 (61%)) 75 ml IVPUSH ONETIME ONE Stop: 11/14/16 08:53 Last Admin: 11/14/16 10:04 Dose: 75 ml Lactobacillus Acidophilus/Rhamnosus (Multi-Ludmila Plus) 1 cap PO BID@1000,1800 [facility] Last Admin: 11/17/16 12:55 Dose: Not Given Metronidazole (Flagyl) 500 mg PO Q8HR [facility] Last Admin: 11/16/16 06:08 Dose: 500 mg Potassium Chloride (Klor-Con 10) 20 meq PO BIDMEALS [facility] Last Admin: 11/14/16 09:01 Dose: 20 meq Potassium Chloride (Klor-Con M20) 20 meq PO BIDMEALS [facility] Sodium Chloride (Normal Saline) 50 ml FLUSH ASDIRECTED [facility] Stop: 11/14/16 13:00 Last Admin: 11/14/16 10:05 Dose: 50 ml - Exam Quality Assessment: central line/PICC, DVT prophylaxis (Lovenox). No: supplemental oxygen, urine catheter General: alert, oriented, cooperative, no acute distress Lungs: Clear to auscultation, Normal respiratory effort Cardiovascular: Regular Rate, Regular Rhythm, No Murmurs Abdomen: bowel sounds present (slightly increased), soft, no tenderness, no distension, other (colostomy to left abdomen-brown pudding consistency stool noted.) Extremities: no edema Skin: warm, dry, intact Psy/Mental Status: alert, normal affect, depressed - Problem List Review Problem List Initiated/Reviewed/Updated: Yes - Plan Plan:: PRIMARY ASSESSMENT/PLAN: Clostridium difficile infection, improving. WBC 5.4 with slight left shift. Na 141, potassium 4.1, GFR >60. Continue with oral vancomycin and IV flagyl. Continue octreotide injections BID. Saline lock today. Re-inforced strict I & O with patient and nursing staff. Continue probiotics. Generalized weakness. Patient would benefit from PT. History of stage III rectal carcinoma, s/p colostomy and abdominal perineal resection in 2016. Chemotherapy stopped due to side affects and myelosuppression. History of hypokalemia. K 4.1. Continue oral replacement. Anemia due to chemotherapy, stable. Hgb 9.2. Hypoalbuminemia due to protein-calorie malnutrition. Albumin 2.29. Encourage boost drink BID. Hypocalcemia. Calcium 8.1, however corrects to 9.5 with albumin. SECONDARY ASSESSMENT/PLAN: Type 2 diabetes mellitus, stable. Continue accuchecks QID. Continue levemir and novolog. Continue lisinopril 2.5 mg daily for renal protection. Hyperlipidemia. Continue zocor. History of hypertension. History of bilateral carotid artery stenosis. Depression. Continue celexa. History of gout. Continue allopurinol. History of DVTs. DVT prophylaxis. Patient's score 6. Placed on lovenox daily. Overall plan: Discontinue IV fluids and encourage patient to drink fluids. Monitor progress with strict I & O. Discussed possible swing bed placement with patient who is hesistant, but stated he will if it is necessary. I feel he may benefit from PT for generalized deconditioning. May switch to swing bed status tomorrow pending ability to have adequate oral intake. The plan of care was reviewed with Dr. Armstrong. He is in agreement with the plan of care.
[2016-11-19] MEDS: Enoxaparin 40 MG/0.4 ML Syringe SUBCUT SCH (11:01)
[2016-11-19] MEDS: Allopurinol 100 MG Tab PO SCH (17:31)
[2016-11-19] MEDS: Lisinopril 5 MG Tab PO SCH (17:31)
[2016-11-19] MEDS: Simvastatin 20 MG Tab PO SCH (21:23)
[2016-11-19] MEDS: Insulin Detemir 100 Units/ML 3 ML Pen SUBCUT SCH (21:26)
[2016-11-19] MEDS: Sodium Chloride 0.9% 20 ML SDV FLUSH SCH (21:29)
[2016-11-20] MEDS: metroNIDAZOLE/Normal Saline 500 MG in Premix Bag 1 BAG IV SCH (06:09)
[2016-11-20] MEDS: Sodium Chloride 0.9% 20 ML SDV FLUSH SCH ×2 (06:09→10:50)
[2016-11-20] MEDS: Omeprazole 20 MG Cap.CR PO SCH (06:09)
[2016-11-20 06:31] VITALS: BP 124/65
[2016-11-20] MEDS: Enoxaparin 40 MG/0.4 ML Syringe SUBCUT SCH (08:16)
[2016-11-20] MEDS: VANCOMYCIN PO SCH (08:16)
[2016-11-20] MEDS: Potassium Chloride 20 MEQ Tab.ER PO SCH (08:17)
[2016-11-20] MEDS: Octreotide 100 MCG/ML SDV SUBCUT SCH (08:17)
[2016-11-20] MEDS: B.Bifidum/B.Longum/L.Acidophilus/L.Rhamnosus (Probiotic) Cap PO SCH (08:17)
[2016-11-20] MEDS: Citalopram 20 MG Tab PO SCH (08:17)
[2016-11-20] MEDS: Insulin Aspart 100 Units/ML 3 ML Pen SUBCUT SCH (08:18)
--- NOTE | 2016-11-20 09:39 | PCM.DCSUM1 ---
Discharge Summary - Hospital Course Brief History: This is an 81 year old male who was admitted from the [facility] with diarrhea and weakness. He was found to have a Clostrium difficile infection and was placed on vancomycin and flagyl. He was also found to be quite dehydrated and was placed on IV fluids. The patient has a history of stage III rectal carcinoma and is status post colostomy and abdominal perineal resection in 2016. - Discharge Data Discharge Date: 11/20/16 Discharge Disposition: Home, Self-Care 01 Condition: Good - Patient Summary/Data Complications: None Labs Pending at D/C: None - Patient Instructions Diet, Other: Diabetic diet as tolerate Feeding Instructions: Ensure/Boost supplement BID Activity: As Tolerated, Rest and Relax Today Driving: Do Not Drive Showering/Bathing: May Shower Notify Provider of: Fever, Increased Pain, Nausea and/or Vomiting Other/Special Instructions: Notify provider of increased or decreased stool output from colostomy. - Discharge Plan Prescriptions/Med Rec: L. Acidophilus/Pectin, [place]ef[place] [Acidophilus Probiotic] 1 each PO BID #60 capsule RX: Potassium Chloride [Klor-Con M20] 20 meq PO DAILY #30 tab.er RX: Vancomycin HCl 250 mg PO QID #28 capsule metroNIDAZOLE [Flagyl] 500 mg PO Q8H #21 tablet Home Medications: Home Meds RX: Allopurinol [Zyloprim] 200 mg PO DAILY@1800 09/12/14 [History] RX: Cholecalciferol (Vitamin D3) [Vitamin D3] 1,000 units PO DAILY@1800 [History] RX: Lisinopril 2.5 mg PO DAILY@1800 09/12/14 [History] RX: Omeprazole [Prilosec] 20 mg PO DAILY@0600 09/12/14 [History] RX: Simvastatin [Zocor] 20 mg PO BEDTIME 09/12/14 [History] RX: oxyCODONE HCl/Acetaminophen [oxyCODONE-Acetaminophen 5-325] 1 - 2 tab PO Q4H PRN 07/18/16 [History] RX: Citalopram [Celexa] 20 mg PO DAILY #60 tablet 07/28/16 [Rx] RX: Acetaminophen 1,000 mg PO Q6H PRN 11/11/16 [History] RX: Bismuth Subsalicylate [Pepto-Bismol] 15 ml PO TID PRN 11/11/16 [History] RX: Dronabinol [Marinol] 2.5 mg PO BIDAC 11/11/16 [History] RX: Insulin Aspart [Novolog Flexpen] 5 unit SQ TIDMEALS 11/11/16 [History] RX: Insulin Detemir [Levemir] 7 unit SUBCUT BEDTIME 11/11/16 [History] RX: Ondansetron HCl [Ondansetron] 8 mg PO Q8H PRN 11/11/16 [History] RX: Prochlorperazine Maleate [Compazine] 10 mg PO Q6H PRN 11/11/16 [History] L. Acidophilus/Pectin, Leflore [Acidophilus Probiotic] 1 each PO BID #60 capsule 11/20/16 [Rx] RX: Potassium Chloride [Klor-Con M20] 20 meq PO DAILY #30 tab.er 11/20/16 [Rx] RX: Vancomycin HCl 250 mg PO QID #28 capsule 11/20/16 [Rx] metroNIDAZOLE [Flagyl] 500 mg PO Q8H #21 tablet 11/20/16 [Rx] Other Amb Orders: PT Evaluation and Treatment [CONS] Location: Determined By Patient Referrals: Josh Ruiz MD [Primary Care Provider] - 11/28/16 () - Discharge Summary/Plan Comment DC Time >30 min.: No Discharge Summary/Plan Comment: Date of admission: 11/11/16 Date of discharge: 11/20/16 Admitting diagnosis: Primary: Intractable diarrhea, Weakness, Dehydration, Abdominal pain, Normocytic normochronic anemia, Hypoalbuminemia Secondary: History of DVTs, Stage III rectal carcinoma, S/P colostomy, Post- chemotherapy, Type 2 diabetes mellitus, History of CKD, Gout, Hyperlipidemia, Chronic thrombocytopenia, History of hypertension, History of bilateral carotid artery stenosis, Depression Final diagnosis: Primary; Clostridum difficile infection, improving; Generalized weakness, improving; Dehydration, resolved; Abdominal pain, resolved; Normocytic normochromic anemia, stable; Hypoalbuminemia, stable. Secondary: History of DVTs, Stage III rectal carcinoma, S/P colostomy, Post- chemotherapy, Type 2 diabetes mellitus, History of CKD, Gout, Hyperlipidemia, Chronic thrombocytopenia, History of hypertension, History of bilateral carotid artery stenosis, Depression Procedures performed: None Hospital Course: The patient's hospital course went essentially as expected. The patient was given IVFs throughout his hospital stay, which improved his dehydration and overall weakness. At times his intake and output did not match so his IV fluids were adjusted as necessary. The patient was on accurate I & Os throughout his stay. The patient had stool testing for C&S, O&P, WBC, occult blood, and C.diff. The C.Diff was positive on repeat test, and the others were negative. The patient had a CT scan of the abdomen performed due to abdominal pain and diarrhea which revealed "Inflammatory process of the right hemicolon consistent with known C. Difficile infection. Presacral fluid collection which likely represents post surgical seroma with changes of interval left hemicolectomy and colostomy. Mild new ascites. Gallbladder wall thickening which may be related to ascites. Correlate clinically to exclude cholecystitis." He was placed on IV flagyl and oral vancomycin. He was given omeprazole orally daily. He did use lomotil and Imodium PRN for the loose stools. He was eventually switched to octreotide which substantially improved the consistency of his stools. Patient avoided diary products in his diet while hospitalized. He was also placed on probiotics. The patient had EKG done on admission which revealed a sinus rhythm with PVCs and PACs. Oral potassium was added due to depletion of this most likely from the diarrhea. Potassium 4.1 (11/19/16). The patient's blood sugar was monitored QID and he received levemir and novolog. The patient did have orthostatic blood pressures checked which were positive from lying to standing with systolic readings of 115 and 90, respectively. Most likely related to dehydration. The patient remained afebrile throughout his stay. The patient's WBC remained low normal with slight left shift. His hemoglobin remained stable with last reading of 9.2. His albumin was low at 2.29 and protein low at 5.7. A protein supplement was added. There was discussion held with patient about the possibility of staying in the hospital as swing bed status to receive physical therapy for strengthenin. However, the patient requested to go home and do outpatient physical therapy. He was sent home on vancomycin flagyl, and probiotics. The patient was encouraged to obtain protein supplements to drink twice a day at home. New medications on discharge: -Vancomycin 250 mg po QID x 1 week -Flagyl 500 mg po every 8 hours x 1 week -Probiotics 1 capsule po BID -Potassium 20 mEq po daily New changes to home medications on discharge: -Discontinued niacin and januvia Regular home medications on discharge: -Oxycodone-acetaminophen 5-325 mg 1-2 tablets po every 4 hours PRN -Acetaminophen 1000 mg po every 6 hours PRN -Lisinopril 2.5 mg po daily -Vitamin D3 1000 units po daily -Omeprazole 20 mg po daily -Levemir 7 units subQ at bedtime -Novolog 5 units subQ TID with meals -Celexa 20 mg po daily -Zofran 8 mg po every 8 hours PRN -Compazine 10 mg po every 6 hours PRN -Allopurinol 200 mg po daily -Simvastatin 20 mg po daily -Dronabinol 2.5 mg po BIDAC -Pepto-Bismol 15 mL po TID PRN Condition, Treatment, and Final Disposition: The patient was discharged home in stable condition with his body liner. He was referred to outpatient physical therapy for deconditioning. The patient will follow-up in [address] Armstrong. Considerations at follow-up would include rechecking potassium level as he had not been on oral replacement prior to his hospital admission. Discharge treatment plan was reviewed with Dr. Armstrong. He is in agreement with the plan of care. - General Info Date of Service: 11/20/16 Functional Status: Reports: pain controlled, tolerating diet, ambulating, urinating. Denies: new symptoms - Review of Systems General: Reports: Weakness, Fatigue, Appetite (improving) Pulmonary: Denies: shortness of breath Cardiovascular: Denies: Chest Pain Gastrointestinal: Reports: Other (colostomy in place). Denies: Abdominal pain, Constipation, Diarrhea, Nausea, Vomiting Psychiatric: Reports: depression Systems Review Comment: Patient voices that he would rather go home and do outpatient physical therapy rather than stay here in swing bed status. He has a friend that is staying with him and will help take care of him. - Patient Data Vitals - Most Recent: Last Vital Signs Temp 98.3 F 11/20/16 06:30 Pulse 89 11/20/16 06:30 Resp 20 11/20/16 06:30 BP 124/65 11/20/16 06:30 Pulse Ox 97 11/20/16 06:30 Orthostatic Blood Pressure [ 90/53 Standing] Orthostatic Blood Pressure [ 107/66 Sitting] Orthostatic Blood Pressure [ 115/66 Supine] Weight - Most Recent: 141 lb 9.6 oz I&O - Last 24 hours: Intake & Output 11/19/16 11/20/16 11/20/16 22:59 06:59 14:59 Intake Total 1020 150 Output Total 850 800 Balance 170 -650 Lab Results - Last 24 hrs: Laboratory Results - last 24 hr 11/19/16 11/19/16 11/19/16 Range/Units 09:10 11:35 17:22 Sodium 141 (136-145) mmol/L Potassium 4.1 (3.3-5.3) mmol/L Chloride 107 (98-115) mmol/L Carbon Dioxide 26.4 (21.0-32.0) mmol/L BUN 9 (6-25) mg/dL Creatinine 0.67 (0.51-1.17) mg/dL Est Cr Clr Drug Dosing 77.22 mL/min Estimated GFR (MDRD) > 60 mL/min Glucose 168 H (70-110) mg/dL POC Glucose 159 H 234 H (74-106) mg/dl Calcium 8.1 L (8.7-10.3) mg/dL Total Bilirubin 0.4 (0.2-1.0) mg/dL AST 15 (15-37) U/L ALT 8 L (12-78) U/L Alkaline Phosphatase 60 (46-116) IU/L Total Protein 5.7 L (6.4-8.2) g/dL Albumin 2.29 L (3.00-4.80) g/dL 11/19/16 11/20/16 Range/Units 21:19 06:18 Sodium (136-145) mmol/L Potassium (3.3-5.3) mmol/L Chloride (98-115) mmol/L Carbon Dioxide (21.0-32.0) mmol/L BUN (6-25) mg/dL Creatinine (0.51-1.17) mg/dL Est Cr Clr Drug Dosing mL/min Estimated GFR (MDRD) mL/min Glucose (70-110) mg/dL POC Glucose 128 H 95 (74-106) mg/dl Calcium (8.7-10.3) mg/dL Total Bilirubin (0.2-1.0) mg/dL AST (15-37) U/L ALT (12-78) U/L Alkaline Phosphatase (46-116) IU/L Total Protein (6.4-8.2) g/dL Albumin (3.00-4.80) g/dL Med Orders - Current: Current Medications Acetaminophen (Tylenol Extra Strength) 1,000 mg PO Q6H PRN PRN Reason: Pain Last Admin: 11/13/16 04:20 Dose: 1,000 mg Allopurinol (Zyloprim) 200 mg PO DAILY@1800 [facility] Last Admin: 11/19/16 17:31 Dose: 200 mg Citalopram Hydrobromide (Celexa) 20 mg PO DAILY [facility] Last Admin: 11/20/16 08:17 Dose: 20 mg Enoxaparin Sodium (Lovenox) 40 mg SUBCUT DAILY [facility] Last Admin: 11/20/16 08:16 Dose: 40 mg Metronidazole 500 mg/ Premix 100 mls @ 100 mls/hr IV Q8H [facility] Last Admin: 11/20/16 06:09 Dose: 100 mls/hr Insulin Aspart (Novolog) 5 unit SUBCUT TIDMEALS [facility] Last Admin: 11/20/16 08:18 Dose: Not Given Insulin Detemir (Levemir) 7 unit SUBCUT BEDTIME [facility] Last Admin: 11/19/16 21:26 Dose: 7 units Lactobacillus Acidophilus/Rhamnosus (Multi-Ludmila Plus) 1 cap PO BID@0800,1800 [facility] Last Admin: 11/20/16 08:17 Dose: 1 cap Lisinopril (Prinivil) 2.5 mg PO DAILY@1800 [facility] Last Admin: 11/19/16 17:31 Dose: 2.5 mg Octreotide Acetate (Sandostatin) 100 mcg SUBCUT BID [facility] Last Admin: 11/20/16 08:17 Dose: 100 mcg Omeprazole (Omeprazole) 20 mg PO DAILY@0600 [facility] Last Admin: 11/20/16 06:09 Dose: 20 mg Ondansetron HCl (Zofran Odt) 8 mg PO Q8H PRN PRN Reason: Nausea Oxycodone/Acetaminophen (Percocet 325-5 Mg) 1 tab PO Q4H PRN PRN Reason: Pain Potassium Chloride (Klor-Con M20) 20 meq PO BIDMEALS [facility] Last Admin: 11/20/16 08:17 Dose: 20 meq Prochlorperazine Maleate (Compazine) 10 mg PO Q6H PRN PRN Reason: Nausea Simvastatin (Zocor) 20 mg PO BEDTIME [facility] Last Admin: 11/19/16 21:23 Dose: 20 mg Sodium Chloride (Syrex Flush) 5 ml FLUSH Q8HR PRN PRN Reason: Keep Vein Open Last Admin: 11/16/16 06:08 Dose: 5 ml Sodium Chloride (Normal Saline) 20 ml FLUSH Q8HR [facility] Last Admin: 11/20/16 06:09 Dose: 20 ml Vancomycin HCl (Vancomycin) 0.25 gm PO QID [facility] Last Admin: 11/20/16 08:16 Dose: 0.25 gm Discontinued Medications Acetaminophen (Tylenol Extra Strength) 1,000 mg PO Q4H PRN PRN Reason: Pain Diphenoxylate HCl/Atropine (Lomotil 0.025-2.5 Mg) 1 tab PO TID PRN PRN Reason: Diarrhea Last Admin: 11/12/16 14:56 Dose: 1 tab Lactated Ringer's (Ringers, Lactated) 1,000 mls @ 200 mls/hr IV ASDIRECTED [facility] Stop: 11/11/16 23:30 Last Admin: 11/11/16 18:17 Dose: 200 mls/hr Sodium Chloride (Normal Saline) 1,000 mls @ 70 mls/hr IV ASDIRECTED [facility] Last Admin: 11/11/16 22:54 Dose: 70 mls/hr Sodium Chloride (Normal Saline) 1,000 mls @ 125 mls/hr IV ASDIRECTED [facility] Last Admin: 11/13/16 04:15 Dose: 125 mls/hr Sodium Chloride (Normal Saline) 1,000 mls @ 50 mls/hr IV ASDIRECTED [facility] Last Admin: 11/15/16 06:09 Dose: 50 mls/hr Sodium Chloride (Normal Saline) 1,000 mls @ 100 mls/hr IV ASDIRECTED [facility] Last Admin: 11/19/16 07:56 Dose: 100 mls/hr Potassium Chloride (Kcl 20 Meq In Water 100 Ml) 200 mls @ 50 mls/hr IV ONETIME ONE Stop: 11/15/16 13:59 Last Admin: 11/15/16 10:19 Dose: 50 mls/hr Metronidazole 500 mg/ Premix 100 mls @ 100 mls/hr IV Q8H [facility] Last Admin: 11/16/16 10:35 Dose: Not Given Insulin Detemir (Levemir) 7 unit SUBCUT BEDTIME [facility] Stop: 11/11/16 22:01 Last Admin: 11/11/16 22:10 Dose: 7 units Iopamidol (Isovue-300 (61%)) 75 ml IVPUSH ONETIME ONE Stop: 11/14/16 08:53 Last Admin: 11/14/16 10:04 Dose: 75 ml Lactobacillus Acidophilus/Rhamnosus (Multi-Ludmila Plus) 1 cap PO BID@1000,1800 [facility] Last Admin: 11/17/16 12:55 Dose: Not Given Metronidazole (Flagyl) 500 mg PO Q8HR [facility] Last Admin: 11/16/16 06:08 Dose: 500 mg Potassium Chloride (Klor-Con 10) 20 meq PO BIDMEALS [facility] Last Admin: 11/14/16 09:01 Dose: 20 meq Potassium Chloride (Klor-Con M20) 20 meq PO BIDMEALS [facility] Sodium Chloride (Normal Saline) 50 ml FLUSH ASDIRECTED [facility] Stop: 11/14/16 13:00 Last Admin: 11/14/16 10:05 Dose: 50 ml - Exam Quality Assessment: Reports: DVT prophylaxis (Lovenox). Denies: supplemental oxygen General: Reports: alert, oriented, cooperative, no acute distress Neck: Reports: supple Lungs: Reports: Clear to auscultation, Normal respiratory effort Cardiovascular: Reports: Regular Rate, Regular Rhythm, No Murmurs Abdomen: Reports: bowel sounds present, soft, no tenderness, no distension, other (colostomy bag present to left side of abdomen with brown pudding consistency stool) Skin: Reports: warm, dry *Q Meaningful Use (DIS) - VTE *Q VTE Criteria *Q: - Stroke *Q Stroke Criteria *Q: - AMI *Q AMI Criteria *Q:
[2016-11-20] MEDS ORDERED: Heparin Sodium 100 Units/ML 5 ML MDV FLUSH SCH (10:45)
[2016-11-20] MEDS ORDERED: metroNIDAZOLE 500 MG Tab ONE (11:01)
--- NOTE | 2016-11-21 08:27 | PN ---
11/18/2016PATIENT NAME: RIAN JUSTIN SUBJECTIVE: This patient has been admitted to the hospital because of severe Clostridium difficile enterocolitis. Currently, today, he seems to be doing a little bit better. His vital signs are also stable and his output is getting better and the diarrhea is improving. We did start him on octreotide yesterday. He has complaints of left abdominal pain, but still has some dryness of his mucous membranes. OBJECTIVE: VITAL SIGNS: Today reveal that his blood pressure is 128/80, mean blood pressure is 96, pulse is 90, temperature 97.8. Intake and output over the last 24 hours was 3395 in and last night was 100 mL out. Over the previous 12 hours, it was 3573 in and 4050 out, -477 out. So, through the night, his output has decreased. GENERAL: He is alert. HEENT: His mucous membranes are slightly dry. Eyes are normal. Ears, nose, and throat are otherwise normal. NECK: Supple. HEART AND LUNGS: Stable. ABDOMEN: Soft, no tenderness noted. Bowel sounds are normal. EXTREMITIES: Normal. NEUROLOGIC: Intact. LABORATORY: His serum sodium, potassium, and chloride are all normal. Calcium is slightly low at 8.5. BUN and creatinine are normal. FINAL DIAGNOSES: 1. Clostridium difficile toxin colitis . The patient is on Flagyl 500 mg IV every 8 hours as well as oral vancomycin 250 mg four times a day. He is doing well. 2. Gout, stable. 3. Depression, stable. 4. Diabetes mellitus, stable. Continue on Levemir 7 units twice a day along with NovoLog. NovoLog is 5 units with each meal. 5. Kidney protection for diabetes mellitus, lisinopril 2.5 mg daily. We will see how he is tomorrow. /[id number]/MODL MTDD
== END 2016-11-20 11:10 | disposition home or self-care (01) | DRG 372 ==
LOC: KA.MS 11:26 → OBSVTOIN 11-12 11:26
PROVIDERS: ADMIT Nurse Practitioner Family; ATTEND Nurse Practitioner Family
DX: A04.7 Enterocolitis due to Clostridium difficile (principal); I10 Essential (primary) hypertension; R19.7 Diarrhea, unspecified; C20 Malignant neoplasm of rectum; R53.1 Weakness; E86.0 Dehydration; R10.9 Unspecified abdominal pain; D64.81 Anemia due to antineoplastic chemotherapy; E88.09 Other disorders of plasma-protein metabolism, not elsewhere classified; Z79.899 Other long term (current) drug therapy; E11.9 Type 2 diabetes mellitus without complications; I12.9 Hypertensive chronic kidney disease with stage 1 through stage 4 chronic kidney disease, or unspecified chronic kidney disease; N18.9 Chronic kidney disease, unspecified; E78.5 Hyperlipidemia, unspecified; F32.9 Major depressive disorder, single episode, unspecified; E83.51 Hypocalcemia; D69.6 Thrombocytopenia, unspecified; M10.9 Gout, unspecified; Z86.718 Personal history of other venous thrombosis and embolism; Z79.01 Long term (current) use of anticoagulants; Z79.4 Long term (current) use of insulin
CPT/HCPCS: 80048; 82962 ×2; 87324; 96360; 96361; 96523; A9270 ×5; G0378; G0379; J1815; J7030; J7120; 36415; 74177; 80053; 82270; 85025; 89055; J1642; J1650; J2354-GY; J3370; J3480; Q9967

== ENCOUNTER 2017-01-21 17:44 | Inpatient (IN) | payer MEDICARE, BC ==
[2017-01-21] MEDS ORDERED: Sodium Chloride 0.9% 5 ML Syringe FLUSH PRN ×2 (18:19→19:55)
--- NOTE | 2017-01-21 18:19 | EDM.PDOC ---
ED HPI GENERAL MEDICAL PROBLEM - General Chief Complaint: Abdominal Pain Stated Complaint: ABDOMINAL PAIN Time Seen by Provider: 01/21/17 18:05 Source of Information: Reports: Patient, Family History Limitations: Reports: No Limitations - History of Present Illness INITIAL COMMENTS - FREE TEXT/NARRATIVE: 81 YO WM with PMH of colon and rectal cancer presents to ER with 6 day history of generalized abdominal pain. Pt has a colostomy and states that he has had decreased stool in colostomy during this time. Pt denies any fever/chills, no nausea/vomiting. Pt reports he was seen in clinic 2 days ago and started on stool softeners and milk of magnesia without any improvement or increase in stooling. 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 Lower Abdomen Pain Score (Numeric/FACES): 8 - Related Data Allergies Allergy/AdvReac Type Severity Reaction Status Date / Time No Known Drug Intolerances Allergy Cannot Verified 01/21/17 17:52 Remember Home Meds: Home Meds Allopurinol [Zyloprim] 200 mg PO DAILY@1800 09/12/14 [History] Cholecalciferol (Vitamin D3) [Vitamin D3] 1,000 units PO DAILY@1800 09/12/14 [ History] Lisinopril 2.5 mg PO DAILY@1800 09/12/14 [History] Omeprazole [Prilosec] 20 mg PO DAILY@0600 09/12/14 [History] Simvastatin [Zocor] 20 mg PO BEDTIME 09/12/14 [History] Citalopram [Celexa] 20 mg PO DAILY #60 tablet 07/28/16 [Rx] Acetaminophen 1,000 mg PO Q6H PRN 11/11/16 [History] Bismuth Subsalicylate [Pepto-Bismol] 15 ml PO TID PRN 11/11/16 [History] Dronabinol [Marinol] 2.5 mg PO BIDAC 11/11/16 [History] Insulin Aspart [Novolog Flexpen] 5 unit SQ TIDMEALS 11/11/16 [History] Insulin Detemir [Levemir] 7 unit SUBCUT BEDTIME 11/11/16 [History] Ondansetron HCl [Ondansetron] 8 mg PO Q8H PRN 11/11/16 [History] Prochlorperazine Maleate [Compazine] 10 mg PO Q6H PRN 11/11/16 [History] L. Acidophilus/Pectin, [place] [Acidophilus Probiotic] 1 each PO BID #60 capsule 11/20/16 [Rx] Potassium Chloride [Klor-Con M20] 20 meq PO DAILY #30 tab.er 11/20/16 [Rx] Rivaroxaban [Xarelto] 15 mg PO BID 01/21/17 [History] Past Medical History HEENT History: Reports: Impaired Vision Cardiovascular History: Reports: Blood Clots/VTE/DVT, Heart Murmur, High Cholesterol, Hypertension, Syncope Gastrointestinal History: Reports: None Genitourinary History: Reports: Renal Calculus Musculoskeletal History: Reports: Arthritis Other Musculoskeletal History: rotator cuff wore out bilateral Other Neuro History: forgetful Psychiatric History: Reports: Depression Endocrine/Metabolic History: Reports: Diabetes, Type II Hematologic History: Reports: Blood Transfusion(s), Iron Deficiency Oncologic (Cancer) History: Reports: Colon Other Oncologic History: rectal ca - Infectious Disease History Infectious Disease History: Reports: C-Difficile - Past Surgical History HEENT Surgical History: Reports: None Cardiovascular Surgical History: Reports: None GI Surgical History: Reports: Appendectomy, Colonoscopy, Colostomy, Other (See Below) Endocrine Surgical History: Reports: None Musculoskeletal Surgical History: Reports: Shoulder Surgery Oncologic Surgical History: Reports: Other (See Below) Other Oncologic Surgeries/Procedures: colon resection Social & Family History - Family History Cardiac: Reports: Aneurysm, Blood Clots/VTE/DVT, Hypertension, Stent GI: Reports: None : Reports: None OBGYN: Reports: None Musculoskeletal: Reports: None Neurological: Reports: None Psychiatric: Reports: None Endocrine/Metabolic: Reports: None Hematologic: Reports: None Immunologic: Reports: None Dermatologic: Reports: None Oncologic: Reports: None, Breast, Colon, Esophageal - Tobacco Use Smoking Status *Q: Never Smoker Second Hand Smoke Exposure: No - Caffeine Use Caffeine Use: Reports: Coffee - Alcohol Use Days Per Week of Alcohol Use: 0 - Recreational Drug Use Recreational Drug Use: No ED ROS GENERAL - Review of Systems Review Of Systems: See Below Constitutional: Reports: No Symptoms HEENT: Reports: No Symptoms Respiratory: Reports: No Symptoms Cardiovascular: Reports: No Symptoms Endocrine: Reports: No Symptoms GI/Abdominal: Reports: Abdominal Pain, Constipation : Reports: No Symptoms Musculoskeletal: Reports: No Symptoms Skin: Reports: No Symptoms Neurological: Reports: No Symptoms Psychiatric: Reports: No Symptoms Hematologic/Lymphatic: Reports: No Symptoms Immunologic: Reports: No Symptoms ED EXAM, GI/ABD - Physical Exam Exam: See Below Exam Limited By: No Limitations General Appearance: Alert, WD/WN, No Apparent Distress Throat/Mouth: Normal Inspection, Normal Lips, Normal Teeth, Normal Gums, Normal Oropharynx, Normal Voice, No Airway Compromise Head: Atraumatic, Normocephalic Neck: Normal Inspection, Supple, Non-Tender, Full Range of Motion Respiratory/Chest: No Respiratory Distress, Lungs Clear, Normal Breath Sounds, No Accessory Muscle Use, Chest Non-Tender Cardiovascular: Normal Peripheral Pulses, Regular Rate, Rhythm, No Edema, No Gallop, No JVD, No Murmur, No Rub GI/Abdominal: Normal Bowel Sounds, Soft, No Distention, Hyperactive Bowel Sounds , Tenderness (generalized), Guarding, Rebound. No: Non-Tender Back Exam: Normal Inspection, Full Range of Motion, NT Extremities: Normal Inspection, Normal Range of Motion, Non-Tender, Normal Capillary Refill, No Pedal Edema Neurological: Alert, Oriented, CN II-XII Intact, Normal Cognition, Normal Gait, Normal Reflexes, No Motor/Sensory Deficits Skin Exam: Warm, Dry, Intact, Normal Color, No Rash Lymphatic: No Adenopathy Course - Vital Signs Last Recorded V/S: Last Vital Signs Temp 36.9 C 01/21/17 17:48 Pulse 112 H 01/21/17 17:48 Resp 18 01/21/17 17:48 BP 162/82 H 01/21/17 17:48 Pulse Ox 95 01/21/17 17:48 - Orders/Labs/Meds Orders: Active Orders 24 hr Category Date Time Status Peripheral IV Care [RC] . DIRECTED Care 01/21/17 18:22 Active Abdomen Pelvis w Cont [CT] Stat Exams 01/21/17 18:19 Ordered UA W/MICROSCOPIC [URIN] Stat Lab 01/21/17 18:19 Uncollected Sodium Chloride 0.9% [Syrex Flush] Med 01/21/17 18:19 Active 5 ml FLUSH Q8HR PRN Peripheral IV Insertion Adult [OM.PC] Routine Oth 01/21/17 18:19 Ordered Medication Orders Sodium Chloride (Syrex Flush) 5 ml FLUSH Q8HR PRN PRN Reason: Keep Vein Open Labs: Laboratory Tests 01/21/17 01/21/17 Range/Units 18:30 18:30 WBC 5.7 (5.0-10.0) 10^3/uL RBC 3.41 L (4.50-6.00) 10^6/uL Hgb 10.8 L (13.0-17.0) g/dL Hct 32.0 L (40.0-52.0) % MCV 93.8 H (82.0-92.0) fL MCH 31.7 H (27.0-31.0) pg MCHC 33.8 (32.0-36.0) g/dL RDW 14.1 (11.5-14.5) % Plt Count 159 (150-300) 10^3/uL MPV 7.1 L (7.4-10.4) fL Neut % (Auto) 73.4 H (50.0-70.0) % Lymph % (Auto) 11.6 L (20.0-40.0) % [place] % (Auto) 13.8 H (2.0-8.0) % Eos % (Auto) 1.0 (1.0-3.0) % Baso % (Auto) 0.2 (0.0-1.0) % Neut # (Auto) 4.1 (2.5-7.0) 10^3/uL Lymph # (Auto) 0.7 L (1.0-4.0) 10^3/uL [place] # (Auto) 0.8 (0.1-0.8) 10^3/uL Eos # (Auto) 0.1 (0.1-0.3) 10^3/uL Baso # (Auto) 0.0 (0.0-0.1) 10^3/uL Sodium 136 (136-145) mmol/L Potassium 4.1 (3.3-5.3) mmol/L Chloride 101 (98-115) mmol/L Carbon Dioxide 25.4 (21.0-32.0) mmol/L BUN 16 (6-25) mg/dL Creatinine 0.73 (0.51-1.17) mg/dL Est Cr Clr Drug Dosing 70.08 mL/min Estimated GFR (MDRD) > 60 mL/min Glucose 198 H (70-110) mg/dL Calcium 8.7 (8.7-10.3) mg/dL Total Bilirubin 0.7 (0.2-1.0) mg/dL AST 13 L (15-37) U/L ALT 12 (12-78) U/L Alkaline Phosphatase 90 (46-116) IU/L Total Protein 6.5 (6.4-8.2) g/dL Albumin 2.65 L (3.00-4.80) g/dL Lipase 60 L (73-393) U/L Meds: Medications Generic Name Dose Route Start Last Admin Trade Name Freq PRN Reason Stop Dose Admin Sodium Chloride 5 ml 01/21/17 18:19 Syrex Flush FLUSH Q8HR PRN Keep Vein Open Discontinued Medications Generic Name Dose Route Start Last Admin Trade Name Freq PRN Reason Stop Dose Admin Acetaminophen 1,000 mg 01/21/17 19:38 01/21/17 19:41 Tylenol Extra Strength PO 01/21/17 19:39 1,000 mg ONETIME ONE Administration Acetaminophen Confirm 01/21/17 19:38 01/21/17 19:41 Tylenol Extra Strength Administered 01/21/17 19:39 Not Given Dose 1,000 mg .ROUTE .STK-MED ONE Iopamidol 75 ml 01/21/17 18:39 Isovue-300 (61%) IV 01/21/17 18:40 . DIRECTED PRN FOR RADIOLOGY EXAM Sodium Chloride 50 ml 01/21/17 18:39 Normal Saline FLUSH 01/21/17 18:40 ONETIME ONE - Radiology Interpretation Free Text/Narrative:: CT abd/pelvis- mid to distal small bowel obstruction dilated to 4.5cm at transition point Departure - Departure Time of Disposition: 19:54 Disposition: Admitted As Inpatient 65 Condition: fair Clinical Impression: Small bowel obstruction - Discharge Information Forms: ED Department Discharge - My Orders Last 24 Hours: My Active Orders 01/21/17 18:19 Abdomen Pelvis w Cont [CT] Stat UA W/MICROSCOPIC [URIN] Stat Sodium Chloride 0.9% [Syrex Flush] 5 ml FLUSH Q8HR PRN Peripheral IV Insertion Adult [OM.PC] Routine 01/21/17 18:22 Peripheral IV Care [RC] . DIRECTED - Assessment/Plan Last 24 Hours: My Active Orders 01/21/17 18:19 Abdomen Pelvis w Cont [CT] Stat UA W/MICROSCOPIC [URIN] Stat Sodium Chloride 0.9% [Syrex Flush] 5 ml FLUSH Q8HR PRN Peripheral IV Insertion Adult [OM.PC] Routine 01/21/17 18:22 Peripheral IV Care [RC] . DIRECTED Assessment:: 1. small bowel obstruction 2. history of colon and rectal CA 3. abdominal pain Plan: 1. admit to Dr Nancie Romero 2. NPO 3. NS at 125cc/hr
[2017-01-21] MEDS ORDERED: Sodium Chloride 0.9% 50 ML SDV FLUSH ONE (18:39)
[2017-01-21] MEDS ORDERED: Iopamidol 612 MG/ML 75 ML Bottle IV PRN (18:39)
[2017-01-21 19:25] LABS: CHLORIDE,CL 101 mmol/L (98-115); SODIUM,NA 136 mmol/L (136-145)
[2017-01-21] MEDS ORDERED: Acetaminophen 500 MG Tab ONE (19:38)
[2017-01-21] MEDS ORDERED: Acetaminophen 500 MG Tab PO ONE (19:38)
[2017-01-21] MEDS ORDERED: Sodium Chloride 0.9% 1,000 ML IV SCH (20:00)
--- NOTE | 2017-01-21 20:43 | PCM.HP ---
H&P History of Present Illness - General Date of Service: 01/21/17 Admit Problem/Dx: Admission Diagnosis/Problem Admission Diagnosis/Problem Small bowel obstruction Patient is an 81-year-old white gentleman with a known history of previous colon and rectal carcinoma-post bowel resection and secondary colostomy who presented to the emergency room department today with the chief complaint of abdominal pain. Patient started having problems about 6 days ago and it has continued and progressed. He describes it as somewhat of a generalized diffuse abdominal pain especially on the right side that tends to wax and wane and may very from 7-9/ 10 in intensity. He has noticed significant decrease in the amount of discharge from his colostomy but denied any melena or hematochezia. Denies any fever, chills, nausea, vomiting. Stool is always somewhat loose in his colostomy bag but no significant change but mainly decreased amount. Patient was evaluated 2 days ago in the clinic and started on stool softeners and milk of magnesia without significant improvement. Patient has been able to drink but decreased appetite but again no nausea or vomiting. 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 difficile also want to avoid antibiotics if we can-does not appear grossly infected at this time Source of Information: Patient, Family, Other (Emergency room notes) History Limitations: Reports: Other (Patient is a little limited historian at time but family members fill-in) - History of Present Illness Initial Comments - Free Text/Narative: As above Severity: Moderate Worsens with: Reports: None Lower Abdomen Pain Score (Numeric/FACES): 8 - Related Data Allergies/Adverse Reactions: Allergies Allergy/AdvReac Type Severity Reaction Status Date / Time No Known Drug Intolerances Allergy Cannot Verified 01/21/17 17:52 Remember Home Medications: Home Meds Allopurinol [Zyloprim] 200 mg PO DAILY@1800 09/12/14 [History] Cholecalciferol (Vitamin D3) [Vitamin D3] 1,000 units PO DAILY@1800 09/12/14 [ History] Lisinopril 2.5 mg PO DAILY@1800 09/12/14 [History] Omeprazole [Prilosec] 20 mg PO DAILY@0600 09/12/14 [History] Simvastatin [Zocor] 20 mg PO BEDTIME 09/12/14 [History] Citalopram [Celexa] 20 mg PO DAILY #60 tablet 07/28/16 [Rx] Acetaminophen 1,000 mg PO Q6H PRN 11/11/16 [History] Bismuth Subsalicylate [Pepto-Bismol] 15 ml PO TID PRN 11/11/16 [History] Dronabinol [Marinol] 2.5 mg PO BIDAC 11/11/16 [History] Insulin Aspart [Novolog Flexpen] 5 unit SQ TIDMEALS 11/11/16 [History] Insulin Detemir [Levemir] 7 unit SUBCUT BEDTIME 11/11/16 [History] Ondansetron HCl [Ondansetron] 8 mg PO Q8H PRN 11/11/16 [History] Prochlorperazine Maleate [Compazine] 10 mg PO Q6H PRN 11/11/16 [History] L. Acidophilus/Pectin, [place] [Acidophilus Probiotic] 1 each PO BID #60 capsule 11/20/16 [Rx] Potassium Chloride [Klor-Con M20] 20 meq PO DAILY #30 tab.er 11/20/16 [Rx] Rivaroxaban [Xarelto] 15 mg PO BID 01/21/17 [History] Past Medical History HEENT History: Reports: Impaired Vision Cardiovascular History: Reports: Blood Clots/VTE/DVT, Heart Murmur, High Cholesterol, Hypertension, Syncope Gastrointestinal History: Reports: None Genitourinary History: Reports: Renal Calculus Musculoskeletal History: Reports: Arthritis Other Musculoskeletal History: rotator cuff wore out bilateral Other Neuro History: forgetful Psychiatric History: Reports: Depression Endocrine/Metabolic History: Reports: Diabetes, Type II Hematologic History: Reports: Blood Transfusion(s), Iron Deficiency Oncologic (Cancer) History: Reports: Colon Other Oncologic History: rectal ca - Infectious Disease History Infectious Disease History: Reports: C-Difficile - Past Surgical History HEENT Surgical History: Reports: None Cardiovascular Surgical History: Reports: None GI Surgical History: Reports: Appendectomy, Colonoscopy, Colostomy, Other (See Below) Endocrine Surgical History: Reports: None Musculoskeletal Surgical History: Reports: Shoulder Surgery Oncologic Surgical History: Reports: Other (See Below) Other Oncologic Surgeries/Procedures: colon resection Social & Family History - Family History Cardiac: Reports: Aneurysm, Blood Clots/VTE/DVT, Hypertension, Stent GI: Reports: None : Reports: None OBGYN: Reports: None Musculoskeletal: Reports: None Neurological: Reports: None Psychiatric: Reports: None Endocrine/Metabolic: Reports: None Hematologic: Reports: None Immunologic: Reports: None Dermatologic: Reports: None Oncologic: Reports: None, Breast, Colon, Esophageal - Tobacco Use Smoking Status *Q: Never Smoker Second Hand Smoke Exposure: No - Caffeine Use Caffeine Use: Reports: Coffee - Alcohol Use Days Per Week of Alcohol Use: 0 - Recreational Drug Use Recreational Drug Use: No H&P Review of Systems - Review of Systems: Review Of Systems: See Below General: Reports: Malaise, Weakness, Fatigue, Weight Loss. Denies: Fever, Chills, Diaphoresis, Weight Gain HEENT: Reports: No Symptoms Pulmonary: Denies: No Symptoms, Shortness of Breath, Wheezing, Pleuritic Chest Pain, Cough, Sputum, Hemoptysis Cardiovascular: Reports: Other (History of irregular heartbeat). Denies: No Symptoms, Chest Pain, Palpitations, Dyspnea on Exertion, Edema, Lightheadedness , Syncope Gastrointestinal: Reports: Abdominal Pain, Constipation, Decreased Appetite, Other (Colostomy draining but minimal). Denies: Black Stool, Bloody Stool, Diarrhea, Hematemesis, Hematochezia, Melena, Nausea, Vomiting Genitourinary: Reports: No Symptoms Musculoskeletal: Reports: No Symptoms Psychiatric: Reports: No Symptoms Neurological: Reports: No Symptoms, Weakness Exam - Exam Exam: See Below - Vital Signs Vital Signs: Last Vital Signs Temp 98.5 F 01/21/17 17:48 Pulse 112 H 01/21/17 17:48 Resp 18 01/21/17 17:48 BP 162/82 H 01/21/17 17:48 Pulse Ox 95 01/21/17 17:48 Weight: 138 lb - Exam Quality Assessment: No: Supplemental Oxygen General: Alert, Oriented, Cooperative, Mild Distress (Pain), Other (No acute respiratory cardiac distress, generalized fatigue-patient does not appear septic or toxic) HEENT: Conjunctiva Clear, EACs Clear, EOMI, Mucosa Moist & [place], Nares Patent, Normal Nasal Septum, Posterior Pharynx Clear, Pupils Equal, Pupils Reactive, TMs Clear, PERRLA. No: Hearing Intact (Slightly hard of hearing) Neck: Supple, Trachea Midline. No: Lymphadenopathy, JVD, Thyromegaly Lungs: Clear to Auscultation, Normal Respiratory Effort. No: Rales, Rhonchi, Wheezing Cardiovascular: Tachycardia (Borderline tachycardia), Systolic Murmur ( Questionable 1/6 systolic) Abdomen: Soft, Guarding (Slight right mid to lateral abdomen), Tenderness ( Slight tenderness to palpation right mid to lateral abdomen), Other (Left-sided colostomy draining small amount of brownish liquid soft stool, some gas, bowel sounds positive but decreased). No: Organomegaly, Distention, Rigidity, Rebound , Hepatomegaly, Hernia, Mass Extremities: No: Cyanosis, Calf Tenderness, Edema, Increased Warmth Skin: Warm, Dry, Intact Neurological: Cranial Nerves Intact (Except somewhat hard of hearing) Neuro Extensive - Mental Status: Alert, Oriented x3, Normal Mood/Affect, Normal Cognition Neuro Extensive - Motor, Sensory, Reflexes: CN II-XII Intact (Some somewhat hard of hearing) Psychiatric: Alert, Normal Affect, Normal Mood - Patient Data Result Diagrams: 01/21/17 18:30 01/21/17 18:30 *Q Meaningful Use (ADM) - VTE *Q VTE Criteria *Q: - Stroke *Q Stroke Criteria *Q: - AMI *Q AMI Criteria *Q: Problem List Initiated/Reviewed/Updated: Yes Orders Last 24hrs: Active Orders 24 hr Category Date Time Status Patient Status [ADT] Routine ADT 01/21/17 19:55 Ordered Bedrest Bathroom Privileges [RC] ASDIRECTED Care 01/21/17 19:55 Active Blood Glucose Check, Bedside [RC] QIDACANDBED Care 01/21/17 19:55 Active Oxygen Therapy [RC] PRN Care 01/21/17 19:55 Active Peripheral IV Care [RC] . DIRECTED Care 01/21/17 19:57 Active VTE/DVT Education [RC] PER UNIT ROUTINE Care 01/21/17 19:55 Active Vital Signs [RC] Q4H Care 01/21/17 19:55 Active Nothing per Oral Now Diet [DIET] Diet 01/22/17 Breakfast Active CBC WITH AUTO DIFF [HEME] AM Lab 01/22/17 05:11 Ordered COMPREHENSIVE METABOLIC PN,CMP [CHEM] AM Lab 01/22/17 05:11 Ordered Sodium Chloride 0.9% [Normal Saline] 1,000 ml Med 01/21/17 20:00 Active IV ASDIRECTED Sodium Chloride 0.9% [Syrex Flush] Med 01/21/17 19:55 Active 5 ml FLUSH Q8HR PRN Peripheral IV Insertion Adult [OM.PC] Routine Oth 01/21/17 19:55 Ordered Resuscitation Status Routine Resus Stat 01/21/17 19:55 Ordered Medication Orders Sodium Chloride (Normal Saline) 1,000 mls @ 125 mls/hr IV ASDIRECTED SEAN Sodium Chloride (Syrex Flush) 5 ml FLUSH Q8HR PRN PRN Reason: Keep Vein Open Sodium Chloride (Syrex Flush) 5 ml FLUSH Q8HR PRN PRN Reason: Keep Vein Open Assessment/Plan Comment:: Primary diagnosis: Small bowel obstruction-partial Failed outpatient treatment History of previous colon/rectal carcinoma-no notable recurrence Adult onset diabetes mellitus type 2 Recent DVT-left leg-this appears to be doing fairly well 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 difficile colitis Osteoarthritis Depression-fair control Heart murmur Status post [id number] Plan: Admit to inpatient care for further evaluation and treatment, close monitoring Vital signs, intake and output Bowel rest IV of normal saline to run at 125 cc per hour N.p.o. except for small sips to take medication-Tylenol Monitor blood sugars Talked with patient and family at length and he agree with this evaluation and treatment plan See orders for details
[2017-01-21] MEDS ORDERED: Prochlorperazine 5 MG Tab PO PRN (20:51)
[2017-01-21] MEDS ORDERED: Ondansetron 4 MG Tab.DIS PO PRN (20:51)
[2017-01-21] MEDS: Rivaroxaban 10 MG Tab PO SCH (21:23)
[2017-01-22] MEDS: Omeprazole 20 MG Cap.CR PO SCH (05:16)
[2017-01-22 08:41] LABS: CHLORIDE,CL 104 mmol/L (98-115); SODIUM,NA 139 mmol/L (136-145)
[2017-01-22] MEDS: Rivaroxaban 10 MG Tab PO SCH ×2 (08:41→20:30)
--- NOTE | 2017-01-22 11:24 | PCM.PN ---
- General Info Date of Service: 01/22/17 Admission Dx/Problem (Free Text): Admission Diagnosis/Problem Admission Diagnosis/Problem Small bowel obstruction Patient is an 81-year-old white gentleman with a known history of previous colon and rectal carcinoma-post bowel resection and secondary colostomy who presented to the emergency room department today with the chief complaint of abdominal pain. Patient started having problems about 6 days ago and it has continued and progressed. He describes it as somewhat of a generalized diffuse abdominal pain especially on the right side that tends to wax and wane and may very from 7-9/ 10 in intensity. He has noticed significant decrease in the amount of discharge from his colostomy but denied any melena or hematochezia. Denies any fever, chills, nausea, vomiting. Stool is always somewhat loose in his colostomy bag but no significant change but mainly decreased amount. Patient was evaluated 2 days ago in the clinic and started on stool softeners and milk of magnesia without significant improvement. Patient has been able to drink but decreased appetite but again no nausea or vomiting. 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 difficile also want to avoid antibiotics if we can-does not appear grossly infected at this time Patient was admitted, monitored closely, placed n.p.o., IV fluids given-bowel rest. Patient reports today: Feels good Colostomy working Abdominal pain-less but not 100% gone Denied any chest pain, shortness breath, nausea, vomiting N.p.o.-hasn't tried to eat or drink at Nurses report today: Through the night had 1 Liter of liquid stool out of his colostomy Concern there may be some blood in his stool Doing well Bowel sounds positive Denied any nausea or vomiting Denied any abdominal pain Functional Status: Reports: pain controlled. Denies: ambulating (Has not been up and about yet) - Review of Systems General: Reports: Weakness, Fatigue, Appetite (Not eating at-n.p.o.). Denies: Fever, Chills HEENT: Reports: no symptoms Pulmonary: Reports: no symptoms Cardiovascular: Reports: No Symptoms Gastrointestinal: Reports: Abdominal pain (Less), Diarrhea. Denies: Constipation, Nausea, Vomiting Genitourinary: Reports: no symptoms Musculoskeletal: Reports: no symptoms Neurological: Reports: No Symptoms Psychiatric: Reports: no symptoms - Patient Data Vitals - most recent: Last Vital Signs Temp 97.4 F 01/22/17 06:15 Pulse 114 H 01/22/17 06:15 Resp 20 01/22/17 06:15 BP 131/80 01/22/17 06:15 Pulse Ox 96 01/22/17 06:15 Weight - most recent: 138 lb I&O - last 24 hours: Intake & Output 01/21/17 01/22/17 01/22/17 22:59 06:59 14:59 Intake Total 170 854 Output Total 900 1100 Balance -730 -246 Lab Results last 24 hrs: Laboratory Results - last 24 hr 01/21/17 01/22/17 01/22/17 Range/Units 22:35 05:20 07:28 WBC 5.1 (5.0-10.0) 10^3/uL RBC 3.21 L (4.50-6.00) 10^6/uL Hgb 10.1 L (13.0-17.0) g/dL Hct 30.3 L (40.0-52.0) % MCV 94.5 H (82.0-92.0) fL MCH 31.5 H (27.0-31.0) pg MCHC 33.4 (32.0-36.0) g/dL RDW 14.5 (11.5-14.5) % Plt Count 147 L (150-300) 10^3/uL MPV 7.0 L (7.4-10.4) fL Neut % (Auto) 69.4 (50.0-70.0) % Lymph % (Auto) 13.2 L (20.0-40.0) % Mckean % (Auto) 15.6 H (2.0-8.0) % Eos % (Auto) 1.4 (1.0-3.0) % Baso % (Auto) 0.4 (0.0-1.0) % Neut # (Auto) 3.5 (2.5-7.0) 10^3/uL Lymph # (Auto) 0.7 L (1.0-4.0) 10^3/uL Mckean # (Auto) 0.8 (0.1-0.8) 10^3/uL Eos # (Auto) 0.1 (0.1-0.3) 10^3/uL Baso # (Auto) 0.0 (0.0-0.1) 10^3/uL Sodium (136-145) mmol/L Potassium (3.3-5.3) mmol/L Chloride (98-115) mmol/L Carbon Dioxide (21.0-32.0) mmol/L BUN (6-25) mg/dL Creatinine (0.51-1.17) mg/dL Est Cr Clr Drug Dosing mL/min Estimated GFR (MDRD) mL/min Glucose (70-110) mg/dL POC Glucose 197 H 169 H (74-106) mg/dl Calcium (8.7-10.3) mg/dL Total Bilirubin (0.2-1.0) mg/dL AST (15-37) U/L ALT (12-78) U/L Alkaline Phosphatase (46-116) IU/L Total Protein (6.4-8.2) g/dL Albumin (3.00-4.80) g/dL 01/22/17 Range/Units 07:28 WBC (5.0-10.0) 10^3/uL RBC (4.50-6.00) 10^6/uL Hgb (13.0-17.0) g/dL Hct (40.0-52.0) % MCV (82.0-92.0) fL MCH (27.0-31.0) pg MCHC (32.0-36.0) g/dL RDW (11.5-14.5) % Plt Count (150-300) 10^3/uL MPV (7.4-10.4) fL Neut % (Auto) (50.0-70.0) % Lymph % (Auto) (20.0-40.0) % Mckean % (Auto) (2.0-8.0) % Eos % (Auto) (1.0-3.0) % Baso % (Auto) (0.0-1.0) % Neut # (Auto) (2.5-7.0) 10^3/uL Lymph # (Auto) (1.0-4.0) 10^3/uL Mckean # (Auto) (0.1-0.8) 10^3/uL Eos # (Auto) (0.1-0.3) 10^3/uL Baso # (Auto) (0.0-0.1) 10^3/uL Sodium 139 (136-145) mmol/L Potassium 4.1 (3.3-5.3) mmol/L Chloride 104 (98-115) mmol/L Carbon Dioxide 28.9 (21.0-32.0) mmol/L BUN 16 (6-25) mg/dL Creatinine 0.73 (0.51-1.17) mg/dL Est Cr Clr Drug Dosing 69.07 mL/min Estimated GFR (MDRD) > 60 mL/min Glucose 166 H (70-110) mg/dL POC Glucose (74-106) mg/dl Calcium 8.5 L (8.7-10.3) mg/dL Total Bilirubin 0.6 (0.2-1.0) mg/dL AST 14 L (15-37) U/L ALT 13 (12-78) U/L Alkaline Phosphatase 88 (46-116) IU/L Total Protein 6.1 L (6.4-8.2) g/dL Albumin 2.48 L (3.00-4.80) g/dL Med Orders - Current: Current Medications Acetaminophen (Tylenol Extra Strength) 1,000 mg PO Q6H PRN PRN Reason: Pain Sodium Chloride (Normal Saline) 1,000 mls @ 125 mls/hr IV ASDIRECTED [facility] Last Admin: 01/21/17 20:41 Dose: 125 mls/hr Lisinopril (Prinivil) 2.5 mg PO DAILY@1800 [facility] Omeprazole (Omeprazole) 20 mg PO DAILY@0600 [facility] Last Admin: 01/22/17 05:16 Dose: 20 mg Ondansetron HCl (Zofran Odt) 8 mg PO Q8H PRN PRN Reason: Nausea Prochlorperazine Maleate (Compazine) 10 mg PO Q6H PRN PRN Reason: Nausea Rivaroxaban (Xarelto) 15 mg PO BID [facility] Last Admin: 01/22/17 08:41 Dose: 15 mg Sodium Chloride (Syrex Flush) 5 ml FLUSH Q8HR PRN PRN Reason: Keep Vein Open Discontinued Medications Acetaminophen (Tylenol Extra Strength) 1,000 mg PO ONETIME ONE Stop: 01/21/17 19:39 Last Admin: 01/21/17 19:41 Dose: 1,000 mg Acetaminophen (Tylenol Extra Strength) Confirm Administered Dose 1,000 mg .ROUTE .STK-MED ONE Stop: 01/21/17 19:39 Last Admin: 01/21/17 19:41 Dose: Not Given Iopamidol (Isovue-300 (61%)) 75 ml IV . DIRECTED PRN PRN Reason: FOR RADIOLOGY EXAM Stop: 01/21/17 18:40 Sodium Chloride (Syrex Flush) 5 ml FLUSH Q8HR PRN PRN Reason: Keep Vein Open Last Admin: 01/21/17 20:42 Dose: 5 ml Sodium Chloride (Normal Saline) 50 ml FLUSH ONETIME ONE Stop: 01/21/17 18:40 Last Admin: 01/21/17 20:43 Dose: Not Given - Exam General: alert, oriented, cooperative, no acute distress, other (Lying in bed, generalized fatigue weakness but looks better overall, does not appear septic or toxic) HEENT: Pupils equal, Pupils reactive, EOMI, Mucous membr. moist/pink. No: Scleral icterus Neck: supple, trachea midline, no JVD, no thyromegaly. No: lymphadenopathy Lungs: Clear to auscultation, Normal respiratory effort Cardiovascular: Regular Rate, Regular Rhythm, Murmurs (1-2/6 systolic) Abdomen: bowel sounds present, soft, no distension, tenderness (Slight right mid to lower abdomen-less marked from yesterday). No: rigidity, rebound, guarding, distension, organomegaly Extremities: no edema, no calf tenderness Skin: warm, dry Neurological: no new focal deficit Psy/Mental Status: alert, normal affect, normal mood - Problem List Review Problem List Initiated/Reviewed/Updated: Yes - My Orders Last 24 Hours: My Active Orders 01/21/17 20:51 Acetaminophen [Tylenol Extra Strength] 1,000 mg PO Q6H PRN Ondansetron [Zofran ODT] 8 mg PO Q8H PRN Prochlorperazine [Compazine] 10 mg PO Q6H PRN 01/21/17 21:00 Rivaroxaban [Xarelto] 15 mg PO BID 01/22/17 06:00 Omeprazole 20 mg PO DAILY@0600 01/22/17 18:00 Lisinopril [Prinivil] 2.5 mg PO DAILY@1800 - Assessment Assessment:: Primary diagnosis: Small bowel murfhsxkuuj-nbqsupf-zogytguot but concern for mainly liquid stool that may be going around the obstruction-rule out other occult pathology- recurrent C. difficile, etc. 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 difficile colitis Osteoarthritis Depression-fair control Heart murmur Status post ksscfsyzq-ocyu-dyinn - Plan Plan:: Plan: Continue inpatient care for further evaluation and treatment, close monitoring Vital signs, intake and output Discontinue IV fluids Saline lock IV Start clear liquid diet Stool for C. difficile, C&S, O&P, WBC Talked with patient at length and he agrees with this evaluation and treatment plan See orders for details
[2017-01-22] MEDS: Sodium Chloride 0.9% 1,000 ML IV SCH ×2 (11:30→18:42)
--- NOTE | 2017-01-22 11:42 | PCM.SN ---
- Free Text/Narrative Note: Considering clinical picture decided not to saline lock IV decided to stay with IV of normal saline at TKO until we see how patient does overall with oral intake
[2017-01-22] MEDS: Lisinopril 5 MG Tab PO SCH (18:32)
[2017-01-22] MEDS ORDERED: metroNIDAZOLE 500 MG Tab PO SCH (21:00)
[2017-01-23] MEDS: Omeprazole 20 MG Cap.CR PO SCH (05:27)
[2017-01-23 08:12] LABS: CHLORIDE,CL 107 mmol/L (98-115); SODIUM,NA 140 mmol/L (136-145)
[2017-01-23] MEDS: Rivaroxaban 10 MG Tab PO SCH ×2 (09:01→20:51)
[2017-01-23] MEDS: NORMAL SALINE IV SCH ×2 (09:47→16:13)
[2017-01-23] MEDS: METRONIDAZOLE IV SCH ×2 (09:47→16:13)
[2017-01-23] MEDS: VANCOMYCIN PO SCH ×3 (11:53→22:00)
--- NOTE | 2017-01-23 12:41 | PN ---
01/23/2017 PATIENT NAME: RIAN JUSTIN SUBJECTIVE: The patient states that he is still having quite a bit coming out of his colostomy bag, but he says that it just pure liquid. He denies any fevers today. He denies any abdominal pain. He says that he is not really hungry, he has just been eating clear liquid diet. OBJECTIVE: VITAL SIGNS: Today, temperature is 97.6, pulse is 91, blood pressure is 110/65, respiratory rate is 20, oxygen saturation on room air is 96%. GENERAL: This is an elderly male, in no acute distress. Cardiac: Heart tones are regular rate and rhythm. No murmurs identified. RESPIRATORY: Lungs sounds are clear throughout the lung rojas. ABDOMEN: Has bowel sounds present in all four quadrants. Colostomy intact showing clear brown stool in the bag. LABORATORY DATA: The patient's lab work that was obtained today, CBC shows a white count low at 3.2, hemoglobin low at 9.4, platelet count low at 119. Chemistry panel shows albumin low at 2.37, total protein low at 5.8, calcium low at 8.3, otherwise, unremarkable. IMPRESSION AND PLAN: 1. Recent small-bowel obstruction with current Clostridium difficile infection with colostomy in place. The patient was admitted to the hospital this past Monday with concerns of abdominal pain that had been going on for about six days. Most of his pain is on the right side. The pain had come and gone. He says at times the pain was very bad, he rated at 7/10 on the pain scale. He also had decreased amount of stool from his colostomy. He denies any blood in his colostomy. He denied any fever or chills. He was seen in clinic a few days prior to admission and he was given some stool softeners and milk of magnesia. He says his appetite was poor and he presented to the emergency room. CT scan of the abdomen did show a new-nj-ydxvox small bowel obstruction, dilated 4.5 cm with a transition point. Plan: The patient is positive for C. diff. We will start the patient on Flagyl 500 mg IV every 8 hours along with vancomycin 125 mg orally every 6 hours. We will continue with normal saline 30 mL an hour for hydration. We will continue with Zofran as needed for nausea and continue with omeprazole 20 mg once daily. He can also continue with his Marinol that he gets twice daily. Compazine also as needed for nausea. 2. History of hypertension. Plan: Continue with lisinopril 2.5 mg daily. 3. History of gout. Plan: Continue with allopurinol 100 mg daily. 4. History of depression. Plan: Continue with Celexa 20 mg daily. 5. Anticoagulation therapy. Plan: Continue with Xarelto 15 mg twice a day. 6. History of hyperlipidemia. Plan: Continue with Zocor 20 mg daily. 7. History of diabetes mellitus. Plan: We will continue the patient on clear liquid diet at this time. We will continue to hold his insulin and continue with blood sugar checks. /[id number]/MODL MTDD
[2017-01-23] MEDS: Citalopram 20 MG Tab PO SCH (13:32)
[2017-01-23] MEDS: Potassium Chloride 20 MEQ Tab.ER PO SCH (13:32)
[2017-01-23] MEDS: B.Bifidum/B.Longum/L.Acidophilus/L.Rhamnosus (Probiotic) Cap PO SCH ×2 (16:12→20:51)
[2017-01-23] MEDS ORDERED: DRONABINOL 2.5 MG PO SCH (17:00)
[2017-01-23] MEDS: Sodium Chloride 0.9% 1,000 ML IV SCH (17:14)
[2017-01-23] MEDS: Lisinopril 5 MG Tab PO SCH (17:14)
[2017-01-23] MEDS: Allopurinol 100 MG Tab PO SCH (17:15)
[2017-01-23] MEDS: Cholecalciferol (Vitamin D3) 1,000 Unit Tab PO SCH (17:15)
[2017-01-23] MEDS: Simvastatin 20 MG Tab PO SCH (20:51)
[2017-01-24] MEDS: metroNIDAZOLE/Normal Saline 100 ML IV SCH ×3 (00:36→17:03)
[2017-01-24] MEDS: VANCOMYCIN PO SCH ×4 (05:54→22:01)
[2017-01-24] MEDS: Omeprazole 20 MG Cap.CR PO SCH (05:55)
[2017-01-24] MEDS: Potassium Chloride 20 MEQ Tab.ER PO SCH (08:36)
[2017-01-24] MEDS: Rivaroxaban 10 MG Tab PO SCH ×2 (08:36→20:25)
[2017-01-24] MEDS: Citalopram 20 MG Tab PO SCH (08:36)
--- NOTE | 2017-01-24 11:44 | PN ---
01/24/2017 PATIENT NAME: RIAN JUSTIN SUBJECTIVE: The patient states that he no longer has any abdominal pain. He says he still gets lots of output in his colostomy bag. He says it is just brown water, but he says he has been able the eat. He has been on clear liquid diet. He has not had any nausea. He says he feels pretty good overall. He denies any fevers. OBJECTIVE: VITAL SIGNS: Today, temperature is 96.8, pulse is 84, blood pressure is 104/64, respiratory rate 18, oxygen saturation 98% on room air. GENERAL: This is an elderly white gentleman, very pleasant, in no acute distress. RESPIRATORY: Lung sounds are clear throughout lung rojas. CARDIAC: Heart tones are regular rate and rhythm. No murmurs identified. ABDOMEN: Soft, nontender, nondistended. Bowel sounds are active x4 quadrants. Colostomy is in place, draining liquid brown stool. LABORATORY DATA: The patient's lab work that was obtained yesterday showed a white count low at 3.2 and hemoglobin 9.4. The patient did not have any lab work drawn today. IMPRESSION AND PLAN: 1. Recent small-bowel obstruction with current Clostridium difficile infection with colostomy in place. Plan: I did repeat the patient's abdominal x-ray flat and upright this morning. The impression per Radiology reads no radiographic evidence of residual bowel obstruction. This is read by Joaquim White MD. We are going to continue the patient on IV Flagyl 500 mg every 8 hours along with vancomycin 125 mg orally every 6 hours. The patient's small-bowel obstruction is most likely resolved. The pain has been much improved. I am going to advance the patient's diet to a regular diet with no milk products. We will continue with omeprazole 20 mg once a day. The patient also gets Marinol twice a day for nausea. He can also have Tums as needed for nausea. We will continue with IV fluids of normal saline at 30 mL an hour for hydration. 2. History of hypertension. Plan: Continue with lisinopril 2.5 mg daily. 3. History of gout. Plan: Continue with allopurinol 100 mg daily. 4. History of depression. Plan: Continue with Celexa 20 mg daily. 5. Anticoagulation therapy. Plan: Continue with Xarelto 15 mg twice a day. 6. History of hyperlipidemia. Plan: Continue with Zocor 20 mg daily. 7. History of diabetes mellitus. Plan: I am actually going to restart him back on his insulin that he was taking at home. We will continue to check blood sugars. 8. Hypokalemia. Plan: The patient's potassium level yesterday was low at 3.3. I did start the patient on potassium chloride 20 mEq daily. We will recheck a potassium level tomorrow morning. Also, we will repeat a CBC in the morning. OVERALL PLAN: The patient seems to be doing well. Small-bowel obstruction has resolved. We are treating his C. diff infection at this time. He can go home on oral vanco and oral Flagyl if lab work looks good tomorrow morning and pain is controlled and he is tolerating the regular diet. /[id number]/MODL
[2017-01-24] MEDS: B.Bifidum/B.Longum/L.Acidophilus/L.Rhamnosus (Probiotic) Cap PO SCH ×2 (14:43→20:27)
[2017-01-24] MEDS: Cholecalciferol (Vitamin D3) 1,000 Unit Tab PO SCH (17:05)
[2017-01-24] MEDS: Allopurinol 100 MG Tab PO SCH (17:05)
[2017-01-24] MEDS: Lisinopril 5 MG Tab PO SCH (17:15)
[2017-01-24] MEDS: Sodium Chloride 0.9% 1,000 ML IV SCH (17:16)
[2017-01-24] MEDS: Simvastatin 20 MG Tab PO SCH (20:26)
[2017-01-24] MEDS: Insulin Detemir 100 Units/ML 3 ML Pen SUBCUT SCH (20:33)
[2017-01-25] MEDS: metroNIDAZOLE/Normal Saline 100 ML IV SCH ×3 (00:33→17:21)
[2017-01-25] MEDS: Acetaminophen 500 MG Tab PO PRN ×2 (03:43→20:54)
[2017-01-25] MEDS: Omeprazole 20 MG Cap.CR PO SCH (05:46)
[2017-01-25] MEDS: VANCOMYCIN PO SCH ×4 (05:46→22:43)
[2017-01-25] MEDS: Citalopram 20 MG Tab PO SCH (09:43)
[2017-01-25] MEDS: Potassium Chloride 20 MEQ Tab.ER PO SCH (09:43)
[2017-01-25] MEDS: Rivaroxaban 10 MG Tab PO SCH ×2 (09:44→20:48)
--- NOTE | 2017-01-25 11:49 | PCM.PN ---
- General Info Date of Service: 01/25/17 Functional Status: Reports: pain controlled, tolerating diet, ambulating, urinating - Review of Systems General: Reports: Weakness, Fatigue, Appetite (improving). Denies: Fever, Chills Pulmonary: Denies: shortness of breath Cardiovascular: Denies: Chest Pain Gastrointestinal: Reports: Abdominal pain (lower abdomen), Diarrhea (Patient doesn't feel the stool is thickening, says he emptied the colostomy bag about 7 or more times yesterday). Denies: Nausea, Vomiting - Patient Data Vitals - most recent: Last Vital Signs Temp 97.2 F 01/25/17 06:44 Pulse 88 01/25/17 06:44 Resp 16 01/25/17 06:44 BP 121/77 01/25/17 06:44 Pulse Ox 97 01/25/17 06:45 Weight - most recent: 138 lb I&O - last 24 hours: Intake & Output 01/24/17 01/25/17 01/25/17 22:59 06:59 14:59 Intake Total 303 507 Output Total 500 900 Balance -197 -393 Lab Results last 24 hrs: Laboratory Results - last 24 hr 01/24/17 01/24/17 01/24/17 Range/Units 12:04 17:11 20:21 WBC (5.0-10.0) 10^3/uL RBC (4.50-6.00) 10^6/uL Hgb (13.0-17.0) g/dL Hct (40.0-52.0) % MCV (82.0-92.0) fL MCH (27.0-31.0) pg MCHC (32.0-36.0) g/dL RDW (11.5-14.5) % Plt Count (150-300) 10^3/uL MPV (7.4-10.4) fL Neut % (Auto) (50.0-70.0) % Lymph % (Auto) (20.0-40.0) % Dewey % (Auto) (2.0-8.0) % Eos % (Auto) (1.0-3.0) % Baso % (Auto) (0.0-1.0) % Neut # (Auto) (2.5-7.0) 10^3/uL Lymph # (Auto) (1.0-4.0) 10^3/uL Dewey # (Auto) (0.1-0.8) 10^3/uL Eos # (Auto) (0.1-0.3) 10^3/uL Baso # (Auto) (0.0-0.1) 10^3/uL Potassium (3.3-5.3) mmol/L POC Glucose 231 H 210 H 232 H (74-106) mg/dl 01/25/17 01/25/17 01/25/17 Range/Units 05:45 07:15 07:15 WBC 3.8 L (5.0-10.0) 10^3/uL RBC 3.18 L (4.50-6.00) 10^6/uL Hgb 9.9 L (13.0-17.0) g/dL Hct 30.0 L (40.0-52.0) % MCV 94.2 H (82.0-92.0) fL MCH 31.0 (27.0-31.0) pg MCHC 32.9 (32.0-36.0) g/dL RDW 14.1 (11.5-14.5) % Plt Count 153 (150-300) 10^3/uL MPV 6.5 L (7.4-10.4) fL Neut % (Auto) 64.3 (50.0-70.0) % Lymph % (Auto) 15.8 L (20.0-40.0) % Dewey % (Auto) 15.9 H (2.0-8.0) % Eos % (Auto) 3.4 H (1.0-3.0) % Baso % (Auto) 0.6 (0.0-1.0) % Neut # (Auto) 2.5 (2.5-7.0) 10^3/uL Lymph # (Auto) 0.6 L (1.0-4.0) 10^3/uL Dewey # (Auto) 0.6 (0.1-0.8) 10^3/uL Eos # (Auto) 0.1 (0.1-0.3) 10^3/uL Baso # (Auto) 0.0 (0.0-0.1) 10^3/uL Potassium 3.6 (3.3-5.3) mmol/L POC Glucose 116 H (74-106) mg/dl Philip Results last 24 hrs: Microbiology 01/22/17 11:25 Stool Culture - Preliminary Stool / Feces Shiga Toxin I & II - Final Med Orders - Current: Current Medications Acetaminophen (Tylenol Extra Strength) 1,000 mg PO Q6H PRN PRN Reason: Pain Last Admin: 01/25/17 03:43 Dose: 1,000 mg Allopurinol (Zyloprim) 200 mg PO DAILY@1800 [facility] Last Admin: 01/24/17 17:05 Dose: 200 mg Cholecalciferol (Vitamin D3) 1,000 units PO DAILY@1800 [facility] Last Admin: 01/24/17 17:05 Dose: 1,000 units Citalopram Hydrobromide (Celexa) 20 mg PO DAILY [facility] Last Admin: 01/25/17 09:43 Dose: 20 mg Sodium Chloride (Normal Saline) 1,000 mls @ 30 mls/hr IV DAILY@1800 [facility] Last Admin: 01/24/17 17:16 Dose: 30 mls/hr Metronidazole (Flagyl 500 Mg In Ns 100 Ml) 100 mls @ 100 mls/hr IV Q8H [facility] Last Admin: 01/25/17 09:43 Dose: 100 mls/hr Insulin Detemir (Levemir) 7 unit SUBCUT BEDTIME [facility] Last Admin: 01/24/17 20:33 Dose: 7 units Lactobacillus Acidophilus/Rhamnosus (Multi-Ludmila Plus) 1 cap PO BID@1500,2100 [facility] Last Admin: 01/24/17 20:27 Dose: 1 cap Lisinopril (Prinivil) 2.5 mg PO DAILY@1800 [facility] Last Admin: 01/24/17 17:15 Dose: 2.5 mg Omeprazole (Omeprazole) 20 mg PO DAILY@0600 [facility] Last Admin: 01/25/17 05:46 Dose: 20 mg Ondansetron HCl (Zofran Odt) 8 mg PO Q8H PRN PRN Reason: Nausea Potassium Chloride (Klor-Con M20) 20 meq PO DAILY [facility] Last Admin: 01/25/17 09:43 Dose: 20 meq Prochlorperazine Maleate (Compazine) 10 mg PO Q6H PRN PRN Reason: Nausea Rivaroxaban (Xarelto) 15 mg PO BID [facility] Last Admin: 01/25/17 09:44 Dose: 15 mg Simvastatin (Zocor) 20 mg PO BEDTIME [facility] Last Admin: 01/24/17 20:26 Dose: 20 mg Sodium Chloride (Syrex Flush) 5 ml FLUSH Q8HR PRN PRN Reason: Keep Vein Open Vancomycin HCl (Vancomycin) 0.125 gm PO Q6H [facility] Last Admin: 01/25/17 10:53 Dose: 0.125 gm Discontinued Medications Acetaminophen (Tylenol Extra Strength) 1,000 mg PO ONETIME ONE Stop: 01/21/17 19:39 Last Admin: 01/21/17 19:41 Dose: 1,000 mg Acetaminophen (Tylenol Extra Strength) Confirm Administered Dose 1,000 mg .ROUTE .STK-MED ONE Stop: 01/21/17 19:39 Last Admin: 01/21/17 19:41 Dose: Not Given Sodium Chloride (Normal Saline) 1,000 mls @ 125 mls/hr IV ASDIRECTED [facility] Last Admin: 01/21/17 20:41 Dose: 125 mls/hr Sodium Chloride (Normal Saline) 1,000 mls @ 30 mls/hr IV ASDIRECTED [facility] Last Admin: 01/22/17 18:42 Dose: 30 mls/hr Metronidazole (Flagyl 500 Mg In Ns 100 Ml) 50 mls @ 50 mls/hr IV Q8H [facility] Last Admin: 01/23/17 16:13 Dose: 50 mls/hr Iopamidol (Isovue-300 (61%)) 75 ml IV . DIRECTED PRN PRN Reason: FOR RADIOLOGY EXAM Stop: 01/21/17 18:40 Metronidazole (Flagyl) 500 mg PO TID [facility] Stop: 01/29/17 22:00 Last Admin: 01/22/17 22:14 Dose: 500 mg Sodium Chloride (Syrex Flush) 5 ml FLUSH Q8HR PRN PRN Reason: Keep Vein Open Last Admin: 01/21/17 20:42 Dose: 5 ml Sodium Chloride (Normal Saline) 50 ml FLUSH ONETIME ONE Stop: 01/21/17 18:40 Last Admin: 01/21/17 20:43 Dose: Not Given - Exam Quality Assessment: DVT prophylaxis (On xarelto). No: supplemental oxygen General: alert, oriented, cooperative, no acute distress Lungs: Clear to auscultation, Normal respiratory effort Cardiovascular: Regular Rate, Regular Rhythm Abdomen: bowel sounds present (hyperactive x 4), soft, tenderness (midline lower abdomen), other (brown liquid appearance to stool). No: guarding, distension Extremities: no edema Skin: warm, dry Neurological: normal speech Psy/Mental Status: alert, normal affect - Problem List Review Problem List Initiated/Reviewed/Updated: Yes - Plan Plan:: PRIMARY ASSESSMENT/PLAN: Small bowel obstruction, resolved. Xray from yesterday revealed "No radiographical evidence of residual bowel obstruction." Patient tolerating regular diet without dairy well. Clostridum difficile infection. Continue IV flagyl and oral vancomycin. Continue IV fluids of normal saline at 30 mL/hr. Continue probiotics BID. Nausea, stable. Continue Marinol BID and tums PRN. Anemia. Hgb improved to 9.9. Will continue to monitor. 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 History of rectal cancer. History of DVT. On xarelto. Hypertension. Continue lisinopril. Hyperlipidemia. Continue zocor. Bilateral carotid artery stenosis. Type 2 diabetes mellitus. Continue levemir. Continue accuchecks. Blood sugar 116 this AM. GERD. Continue omeprazole. Depression. Continue celexa. History of hypokalemia. BMP in AM. Continue oral potassium. History of gout. Continue allopurinol. DVT prophylaxis. On xarelto. Overall plan: Continue IV fluids and antibiotics. Increase activity level today. May be able to be discharged on oral antibiotics tomorrow.
[2017-01-25] MEDS: B.Bifidum/B.Longum/L.Acidophilus/L.Rhamnosus (Probiotic) Cap PO SCH ×2 (14:21→20:48)
[2017-01-25] MEDS: Cholecalciferol (Vitamin D3) 1,000 Unit Tab PO SCH (17:22)
[2017-01-25] MEDS: Allopurinol 100 MG Tab PO SCH (17:22)
[2017-01-25] MEDS: Sodium Chloride 0.9% 1,000 ML IV SCH (17:22)
[2017-01-25] MEDS: Lisinopril 5 MG Tab PO SCH (17:23)
[2017-01-25] MEDS: Insulin Detemir 100 Units/ML 3 ML Pen SUBCUT SCH (20:47)
[2017-01-25] MEDS: Simvastatin 20 MG Tab PO SCH (20:48)
[2017-01-26] MEDS: metroNIDAZOLE/Normal Saline 100 ML IV SCH ×3 (00:29→17:07)
[2017-01-26] MEDS: VANCOMYCIN PO SCH ×4 (05:49→22:15)
[2017-01-26] MEDS: Omeprazole 20 MG Cap.CR PO SCH (05:49)
[2017-01-26 08:09] LABS: CHLORIDE,CL 105 mmol/L (98-115); SODIUM,NA 139 mmol/L (136-145)
[2017-01-26] MEDS: Citalopram 20 MG Tab PO SCH (08:20)
[2017-01-26] MEDS: Rivaroxaban 10 MG Tab PO SCH ×2 (08:20→20:48)
[2017-01-26] MEDS: Potassium Chloride 20 MEQ Tab.ER PO SCH (08:20)
[2017-01-26] MEDS: D5 1/2 NS w/ 20 mEq/L KCl 1,000 ML IV SCH (10:08)
[2017-01-26] MEDS: B.Bifidum/B.Longum/L.Acidophilus/L.Rhamnosus (Probiotic) Cap PO SCH ×2 (15:03→20:47)
--- NOTE | 2017-01-26 15:43 | PN ---
01/26/17 PATIENT NAME: RIAN JUSTIN PATIENT PROFILE: The patient is an 81-year-old gentleman, who has been admitted to hospital because of abdominal complaints. Today, the patient did have a vomiting episode this morning. His vital signs, pulse is 107, temperature 97.2, blood pressure is one 111/64. He looks a little bit pale, but otherwise does not feel too bad. No complaints of coughing, sore throat, fever. Denies having abdominal pains. He does have a functioning colostomy, although from yesterday there was very little output from the colostomy itself. PHYSICAL EXAMINATION: GENERAL: The patient is alert. HEENT: Tongue is moist. Head and ENT are negative. HEART: Stable. LUNGS: Stable. ABDOMEN: Soft. Bowel sounds are actively present. Colostomy is present. EXTREMITIES: Normal. NEUROLOGIC: Intact. FINAL DIAGNOSES: 1. Recent episode of suspected small-bowel obstruction, but now it is improved. 2. This patient had a vomiting episode this morning. We will back off on his food to full liquids and see how he does. We will increase IV fluids. And we will continue with his other medications as before. We will see him back this evening or in the morning. We will see how he does. I have also reviewed his laboratory data which include the fact that his hemoglobin is 10.6, white count is 6.2, electrolytes were all normal. And so final diagnosis is continued abdominal complaints with vomiting, but no clinical or radiological evidence of obstruction. Plan is to back off his diet to full liquids and increase IV fluids and see how he does later today. His electrolytes are all normal. /[id number]/MODL
[2017-01-26] MEDS: Allopurinol 100 MG Tab PO SCH (17:45)
[2017-01-26] MEDS: Lisinopril 5 MG Tab PO SCH (17:46)
[2017-01-26] MEDS: Cholecalciferol (Vitamin D3) 1,000 Unit Tab PO SCH (17:47)
[2017-01-26] MEDS: Insulin Detemir 100 Units/ML 3 ML Pen SUBCUT SCH (20:47)
[2017-01-26] MEDS: Simvastatin 20 MG Tab PO SCH (20:48)
[2017-01-26] MEDS ORDERED: Insulin Detemir 100 Units/ML 3 ML Pen SUBCUT SCH (21:30)
[2017-01-27] MEDS: metroNIDAZOLE/Normal Saline 100 ML IV SCH ×3 (00:09→16:57)
[2017-01-27] MEDS: Omeprazole 20 MG Cap.CR PO SCH (05:21)
[2017-01-27] MEDS: D5 1/2 NS w/ 20 mEq/L KCl 1,000 ML IV SCH (05:22)
[2017-01-27] MEDS: VANCOMYCIN PO SCH ×4 (05:22→22:12)
[2017-01-27] MEDS: Potassium Chloride 20 MEQ Tab.ER PO SCH (08:21)
[2017-01-27] MEDS: Rivaroxaban 10 MG Tab PO SCH ×2 (08:21→20:46)
[2017-01-27] MEDS: Citalopram 20 MG Tab PO SCH (08:21)
[2017-01-27] MEDS: Magnesium Oxide 500 MG Tab PO SCH (10:54)
--- NOTE | 2017-01-27 10:58 | PN ---
01/27/2017 PATIENT NAME: RIAN JUSTIN SUBJECTIVE: This is a very pleasant 81-year-old gentleman, who has been admitted because of abdominal pain and a possible bowel obstruction. We are seeing him today. He has been doing fairly well at this point in time. He states that his problem is abdominal pain and possible obstruction. His states that his abdominal pain is improved. Distention is also better. His colostomy has started to work. He has been placed on full liquids and his appetite is increased. His intake and output, he did take a total of 1860 in and output was 700 mL. The day before that, his intake was 2325 and output was 2000 mL. The oral amount yesterday was 1140 and IV fluids were approximately 720 mL. OBJECTIVE: VITAL SIGNS: Revealed his temperature to be 97.7, pulse is 86, blood pressure 107/59, oxygen saturation is normal. HEAD: Negative. HEART/LUNGS: Stable. ABDOMEN: Soft. Colostomy is functional. Bowel sounds are present. EXTREMITIES: Normal. NEUROLOGIC: Intact. LAB DATA: His hemoglobin is 10, white count is 4.8. Yesterday, his electrolytes were all normal. FINAL DIAGNOSES: 1. Abdominal pain and possible bowel obstruction. This seems to be resolving at this time. He does not have evidence of bowel obstruction at this time. We will plan to start him on a soft diet and cut back his IV fluids and we will continue his potassium also. He is also getting IV Flagyl and oral vancomycin for his Clostridium difficile toxin infection. We will recheck a stool culture tomorrow. 2. Rectal carcinoma, stable, with colostomy. 3. Adenocarcinoma of the colon, stable. 4. History of deep vein thrombosis, on Xarelto, stable. 5. Hypertension, stable. Continue lisinopril. 6. Hyperlipidemia, stable, continue Zocor. 7. Bilateral carotid artery stenosis, stable. 8. Type 2 diabetes mellitus. Plan is to discontinue his IV D5W and change to normal saline. Continue Levemir and also add NovoLog with a.c. meals and bedtime, low dose. 9. Gastroesophageal reflux disease, continue omeprazole. 10.Depression, continue Celexa. 11.History of hypokalemia, continue IV and oral potassium and recheck potassium tomorrow. 12.History of gout, stable. 13.Deep vein thrombosis prophylaxis, on Xarelto, stable. /[id number]/MODL
[2017-01-27] MEDS: Insulin Aspart 100 Units/ML 3 ML Pen SUBCUT SCH ×3 (12:00→20:45)
[2017-01-27] MEDS: NS + KCl 20mEq/L 1,000 ML IV SCH (12:02)
[2017-01-27] MEDS: B.Bifidum/B.Longum/L.Acidophilus/L.Rhamnosus (Probiotic) Cap PO SCH ×2 (15:30→20:45)
[2017-01-27] MEDS: Cholecalciferol (Vitamin D3) 1,000 Unit Tab PO SCH (17:57)
[2017-01-27] MEDS: Allopurinol 100 MG Tab PO SCH (17:57)
[2017-01-27] MEDS: Lisinopril 5 MG Tab PO SCH (17:58)
[2017-01-27] MEDS: Insulin Detemir 100 Units/ML 3 ML Pen SUBCUT SCH (20:44)
[2017-01-28] MEDS: metroNIDAZOLE/Normal Saline 100 ML IV SCH ×3 (01:03→17:35)
[2017-01-28] MEDS: VANCOMYCIN PO SCH ×4 (06:01→22:03)
[2017-01-28] MEDS: Omeprazole 20 MG Cap.CR PO SCH (06:02)
[2017-01-28] MEDS: Insulin Aspart 100 Units/ML 3 ML Pen SUBCUT SCH ×4 (07:16→20:44)
[2017-01-28 07:52] LABS: CHLORIDE,CL 108 mmol/L (98-115); SODIUM,NA 145 mmol/L (136-145)
[2017-01-28] MEDS: Citalopram 20 MG Tab PO SCH (08:28)
[2017-01-28] MEDS: Rivaroxaban 10 MG Tab PO SCH ×2 (08:29→20:50)
[2017-01-28] MEDS: Potassium Chloride 20 MEQ Tab.ER PO SCH (08:29)
[2017-01-28] MEDS: Magnesium Oxide 500 MG Tab PO SCH (08:29)
[2017-01-28] MEDS: NS + KCl 20mEq/L 1,000 ML IV SCH (11:20)
--- NOTE | 2017-01-28 11:20 | PCM.PN ---
- General Info Date of Service: 01/28/17 Functional Status: Reports: pain controlled, tolerating diet, ambulating, urinating. Denies: new symptoms - Review of Systems General: Reports: Weakness, Fatigue, Appetite (no appetite, but is eating). Denies: Fever, Chills Pulmonary: Denies: shortness of breath Cardiovascular: Denies: Chest Pain Gastrointestinal: Reports: Abdominal pain, Decreased appetite, Diarrhea. Denies : Flatus, Nausea, Vomiting - Patient Data Vitals - most recent: Last Vital Signs Temp 97.5 F 01/28/17 06:31 Pulse 98 01/28/17 06:31 Resp 18 01/28/17 06:31 BP 136/83 01/28/17 06:31 Pulse Ox 94 L 01/28/17 06:31 Weight - most recent: 138 lb I&O - last 24 hours: Intake & Output 01/27/17 01/28/17 01/28/17 22:59 06:59 14:59 Intake Total 944 446 Output Total 400 600 Balance 544 -154 Lab Results last 24 hrs: Laboratory Results - last 24 hr 01/27/17 01/27/17 01/27/17 Range/Units 11:49 17:54 20:41 Sodium (136-145) mmol/L Potassium (3.3-5.3) mmol/L Chloride (98-115) mmol/L Carbon Dioxide (21.0-32.0) mmol/L BUN (6-25) mg/dL Creatinine (0.51-1.17) mg/dL Est Cr Clr Drug Dosing mL/min Estimated GFR (MDRD) mL/min Glucose (70-110) mg/dL POC Glucose 165 H 168 H 207 H (74-106) mg/dl Calcium (8.7-10.3) mg/dL 01/28/17 01/28/17 Range/Units 06:08 07:15 Sodium 145 (136-145) mmol/L Potassium 3.7 (3.3-5.3) mmol/L Chloride 108 (98-115) mmol/L Carbon Dioxide 25.7 (21.0-32.0) mmol/L BUN 6 (6-25) mg/dL Creatinine 0.64 (0.51-1.17) mg/dL Est Cr Clr Drug Dosing 78.79 mL/min Estimated GFR (MDRD) > 60 mL/min Glucose 95 (70-110) mg/dL POC Glucose 81 (74-106) mg/dl Calcium 8.6 L (8.7-10.3) mg/dL Med Orders - Current: Current Medications Acetaminophen (Tylenol Extra Strength) 1,000 mg PO Q6H PRN PRN Reason: Pain Last Admin: 01/25/17 20:54 Dose: 1,000 mg Allopurinol (Zyloprim) 200 mg PO DAILY@1800 [facility] Last Admin: 01/27/17 17:57 Dose: 200 mg Cholecalciferol (Vitamin D3) 1,000 units PO DAILY@1800 [facility] Last Admin: 01/27/17 17:57 Dose: 1,000 units Citalopram Hydrobromide (Celexa) 20 mg PO DAILY [facility] Last Admin: 01/28/17 08:28 Dose: 20 mg Metronidazole (Flagyl 500 Mg In Ns 100 Ml) 100 mls @ 100 mls/hr IV Q8H [facility] Last Admin: 01/28/17 08:29 Dose: 100 mls/hr Potassium Chloride/Sodium Chloride (Normal Saline With 20 Meq Kcl) 1,000 mls @ 50 mls/hr IV ASDIRECTED [facility] Last Admin: 01/27/17 12:02 Dose: 50 mls/hr Insulin Aspart (Novolog) 0 unit SUBCUT 0730,1130,1730,2100 SEAN PRN Reason: Protocol Last Admin: 01/28/17 07:16 Dose: Not Given Insulin Detemir (Levemir) 7 unit SUBCUT BEDTIME [facility] Last Admin: 01/27/17 20:44 Dose: 7 units Lactobacillus Acidophilus/Rhamnosus (Multi-Ludmila Plus) 1 cap PO BID@1500,2100 [facility] Last Admin: 01/27/17 20:45 Dose: 1 cap Lisinopril (Prinivil) 2.5 mg PO DAILY@1800 [facility] Last Admin: 01/27/17 17:58 Dose: Not Given Magnesium Oxide (Magnesium Oxide) 500 mg PO DAILY [facility] Last Admin: 01/28/17 08:29 Dose: 500 mg Omeprazole (Omeprazole) 20 mg PO DAILY@0600 [facility] Last Admin: 01/28/17 06:02 Dose: 20 mg Ondansetron HCl (Zofran Odt) 8 mg PO Q8H PRN PRN Reason: Nausea Potassium Chloride (Klor-Con 10) 20 meq PO BIDMEALS [facility] Prochlorperazine Maleate (Compazine) 10 mg PO Q6H PRN PRN Reason: Nausea Rivaroxaban (Xarelto) 15 mg PO BID [facility] Last Admin: 01/28/17 08:29 Dose: 15 mg Simvastatin (Zocor) 20 mg PO BEDTIME [facility] Last Admin: 01/26/17 20:48 Dose: 20 mg Sodium Chloride (Syrex Flush) 5 ml FLUSH Q8HR PRN PRN Reason: Keep Vein Open Vancomycin HCl (Vancomycin) 0.125 gm PO Q6H [facility] Last Admin: 01/28/17 06:01 Dose: 0.125 gm Discontinued Medications Acetaminophen (Tylenol Extra Strength) 1,000 mg PO ONETIME ONE Stop: 01/21/17 19:39 Last Admin: 01/21/17 19:41 Dose: 1,000 mg Acetaminophen (Tylenol Extra Strength) Confirm Administered Dose 1,000 mg .ROUTE .STK-MED ONE Stop: 01/21/17 19:39 Last Admin: 01/21/17 19:41 Dose: Not Given Sodium Chloride (Normal Saline) 1,000 mls @ 125 mls/hr IV ASDIRECTED [facility] Last Admin: 01/21/17 20:41 Dose: 125 mls/hr Sodium Chloride (Normal Saline) 1,000 mls @ 30 mls/hr IV ASDIRECTED [facility] Last Admin: 01/22/17 18:42 Dose: 30 mls/hr Metronidazole (Flagyl 500 Mg In Ns 100 Ml) 50 mls @ 50 mls/hr IV Q8H [facility] Last Admin: 01/23/17 16:13 Dose: 50 mls/hr Sodium Chloride (Normal Saline) 1,000 mls @ 30 mls/hr IV DAILY@1800 [facility] Last Admin: 01/25/17 17:22 Dose: 30 mls/hr Potassium Chloride/Dextrose/Sod Cl (D5 1/2 Ns W/ 20 Meq/L Kcl) 1,000 mls @ 50 mls/hr IV ASDIRECTED [facility] Last Admin: 01/27/17 05:22 Dose: 50 mls/hr Insulin Detemir (Levemir) 7 unit SUBCUT ONETIME [facility] Last Admin: 01/26/17 22:14 Dose: 7 units Iopamidol (Isovue-300 (61%)) 75 ml IV . DIRECTED PRN PRN Reason: FOR RADIOLOGY EXAM Stop: 01/21/17 18:40 Metronidazole (Flagyl) 500 mg PO TID SEAN Stop: 01/29/17 22:00 Last Admin: 01/22/17 22:14 Dose: 500 mg Potassium Chloride (Klor-Con M20) 20 meq PO DAILY SEAN Last Admin: 01/28/17 08:29 Dose: 20 meq Sodium Chloride (Syrex Flush) 5 ml FLUSH Q8HR PRN PRN Reason: Keep Vein Open Last Admin: 01/21/17 20:42 Dose: 5 ml Sodium Chloride (Normal Saline) 50 ml FLUSH ONETIME ONE Stop: 01/21/17 18:40 Last Admin: 01/21/17 20:43 Dose: Not Given - Exam Quality Assessment: DVT prophylaxis (On Xarelto). No: supplemental oxygen General: alert, oriented, cooperative, no acute distress Lungs: Clear to auscultation, Normal respiratory effort Cardiovascular: Regular Rate, Regular Rhythm, No Murmurs Abdomen: bowel sounds present (hypoactive x 4), soft, no distension, tenderness (generalized). No: guarding Skin: warm, dry Neurological: normal speech Psy/Mental Status: alert, normal affect, normal mood - Problem List Review Problem List Initiated/Reviewed/Updated: Yes - My Orders Last 24 Hours: My Active Orders 01/28/17 08:33 CDIFF TOX A+B [OP] Routine 01/28/17 09:56 Incentive Spirometry [RT Incentive Spirometry] [RC] ASDIRECTED 01/28/17 18:00 Potassium Chloride [Klor-Con 10] 20 meq PO BIDMEALS 01/29/17 05:11 POTASSIUM,K [CHEM] AM - Plan Plan:: PRIMARY ASSESSMENT/PLAN: Small bowel obstruction, recurrent. Repeat x-ray from 01/26/17 revealed persistent small bowel obstruction, however the x-ray 2 days prior noted a resolved obstruction. Will perform barium small bowel follow through to determine where the obstruction is occurring. Patient is tolerating soft diet. Continue IVFs. Encouraged patient to be up and moving as much as possible. Clostridum difficile infection. Repeat stool test today. Continue IV flagyl and oral vancomycin. GFR >60. Patient continues to have dark brown/black liquid stool from the colostomy. Continue probiotics. Hypokalemia, improving. K 3.7. Continue NS with 20 KCL at 50 mL/hr. Increase oral potassium to 20 mEq BID. Repeat potassium in AM. Nausea. Continue Marinol and tums. 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 History of rectal cancer. History of DVT. On xarelto. Hypertension. Continue lisinopril. Hyperlipidemia. Continue zocor. Bilateral carotid artery stenosis. Type 2 diabetes mellitus. Continue levemir and sliding scale. Continue accuchecks. Blood sugar 95 this AM. GERD. Continue omeprazole. Depression. Continue celexa. History of gout. Continue allopurinol. DVT prophylaxis. On xarelto. Overall plan: Barium swallow with small bowel follow through today. Continue IVFs and antibiotics. Repeat potassium in AM.
[2017-01-28] MEDS ORDERED: Diatrizoate Meglumine/Diatrizoate Sodium 37% 120 ML Bottle PO ONE (12:00)
[2017-01-28] MEDS: B.Bifidum/B.Longum/L.Acidophilus/L.Rhamnosus (Probiotic) Cap PO SCH ×2 (15:37→20:50)
[2017-01-28] MEDS: Lisinopril 5 MG Tab PO SCH (17:33)
[2017-01-28] MEDS: Cholecalciferol (Vitamin D3) 1,000 Unit Tab PO SCH (17:34)
[2017-01-28] MEDS: Potassium Chloride 10 MEQ Tab.ER PO SCH (17:35)
[2017-01-28] MEDS: Allopurinol 100 MG Tab PO SCH (17:36)
[2017-01-28] MEDS: Insulin Detemir 100 Units/ML 3 ML Pen SUBCUT SCH (20:42)
[2017-01-29] MEDS: metroNIDAZOLE/Normal Saline 100 ML IV SCH ×2 (01:03→08:48)
[2017-01-29] MEDS: VANCOMYCIN PO SCH (05:44)
[2017-01-29] MEDS: Omeprazole 20 MG Cap.CR PO SCH (05:44)
[2017-01-29 06:50] VITALS: BP 121/76
[2017-01-29] MEDS: Insulin Aspart 100 Units/ML 3 ML Pen SUBCUT SCH (07:12)
[2017-01-29] MEDS: Magnesium Oxide 500 MG Tab PO SCH (08:48)
[2017-01-29] MEDS: Potassium Chloride 10 MEQ Tab.ER PO SCH (08:48)
[2017-01-29] MEDS: Citalopram 20 MG Tab PO SCH (08:48)
[2017-01-29] MEDS: Rivaroxaban 10 MG Tab PO SCH (08:48)
--- NOTE | 2017-01-29 10:30 | PCM.DCSUM1 ---
Discharge Summary - Hospital Course Brief History: This is an 81 year old male who presented to the emergency room with compalints of a 6 day history of abdominal pain. He had been seen in the clinic 2 days prior and initiated on stool softeners without any improvement. The patient has a colostomy in place and had reported a decreased amount of stool. He had a CT of the abdomen performed which revealed a mid to distal small bowel obstruction dilated to 4.5 cm at the transition point. He was admitted for further monitoring and management of his condition. - Discharge Data Discharge Date: 01/29/17 Discharge Disposition: Home, Self-Care 01 Condition: Good - Patient Summary/Data Complications: Patient did have an episode of becoming obstructed again on x- ray report. Consults: Consultations 01/23/17 12:47 PT Evaluation and Treatment [CONS] Routine Labs Pending at D/C: None - Patient Instructions Diet: Regular Diet as Tolerated Activity: As Tolerated Driving: Do Not Drive Showering/Bathing: May Shower Notify Provider of: Fever, Increased Pain, Nausea and/or Vomiting (Any significant changes in stool patterns) - Discharge Plan Prescriptions/Med Rec: Magnesium Oxide 500 mg PO DAILY #30 tablet Home Medications: Home Meds Allopurinol [Zyloprim] 200 mg PO DAILY@1800 09/12/14 [History] Cholecalciferol (Vitamin D3) [Vitamin D3] 1,000 units PO DAILY@1800 09/12/14 [ History] Lisinopril 2.5 mg PO DAILY@1800 09/12/14 [History] Omeprazole [Prilosec] 20 mg PO DAILY@0600 09/12/14 [History] Simvastatin [Zocor] 20 mg PO BEDTIME 09/12/14 [History] Citalopram [Celexa] 20 mg PO DAILY #60 tablet 07/28/16 [Rx] Acetaminophen 1,000 mg PO Q6H PRN 11/11/16 [History] Bismuth Subsalicylate [Pepto-Bismol] 15 ml PO TID PRN 11/11/16 [History] Dronabinol [Marinol] 2.5 mg PO BIDAC 11/11/16 [History] Insulin Aspart [Novolog Flexpen] 5 unit SQ TIDMEALS 11/11/16 [History] Insulin Detemir [Levemir] 7 unit SUBCUT BEDTIME 11/11/16 [History] Ondansetron HCl [Ondansetron] 8 mg PO Q8H PRN 11/11/16 [History] Prochlorperazine Maleate [Compazine] 10 mg PO Q6H PRN 11/11/16 [History] L. Acidophilus/Pectin, Shannon [Acidophilus Probiotic] 1 each PO BID #60 capsule 11/20/16 [Rx] Rivaroxaban [Xarelto] 15 mg PO BID 01/21/17 [History] Magnesium Oxide 500 mg PO DAILY #30 tablet 01/29/17 [Rx] Potassium Chloride [Klor-Con M20] 20 meq PO BID #30 tab.er 01/29/17 [Rx] Referrals: Josh Ruiz MD [Primary Care Provider] - (Follow-up in the clinic on Monday or this week with myself (Malu Centeno NP) or Dr. Armstrong) - Discharge Summary/Plan Comment DC Time >30 min.: No Discharge Summary/Plan Comment: Date of admission: 01/21/17 Date of discharge: 01/29/17 Admitting Diagnosis: Primary: Small bowel obstruction Secondary: History of adenocarcinoma of the colon with colostomy in place, History of rectal cancer, History of DVT, Hypertension, Hyperlipidemia, Bilateral carotid artery stenosis, Type 2 diabetes mellitus, GERD, Depression, History of gout, Chronic nausea, History of Cdiff infection, Osteoarthritis, Anemia Final Diagosis: Primary: Small bowel obstruction, resolved. Cdiff infection, resolved. Hypokalemia, resolved. Secondary: History of adenocarcinoma of the colon with colostomy in place, History of rectal cancer, History of DVT, Hypertension, Hyperlipidemia, Bilateral carotid artery stenosis, Type 2 diabetes mellitus, GERD, Depression, History of gout, Chronic nausea, History of Cdiff infection, Osteoarthritis, Anemia Procedures performed: None Hospital course: The patient's hospital course went fairly smooth, however he did have re- obstruction of the small bowel noted on x-ray on 01/26/17. The patient's initial CT scan revealed a mid to distal small bowel obstruction. He was placed on bowel rest. This resolved itself as noted on x-ray on 01/24/17. Patient did start developing increasing abdominal pain and an episode of vomiting and was found to have re-obstructed on 01/26/17. His diet was adjusted accordingly. He did not vomit any further and he remained afrebrile. He did not become hemodynamically unstable. He received IV fluids throughout his hospital stay. The day prior to discharge he had a barium swallow with small bowel follow through series with showed no evidence of small bowel obstruction. He was found to have a Cdiff infection early in his hospital stay. He was initiated on IV flagyl and oral vancomycin. Repeat stool culture was done the day prior to discharge and was negative for Cdiff. His white blood cell count had returned to baseline of 4.8 on 01/27/17. He was noted to have a low potassium and on the day of discharge it was 3.7. He was given oral potassium and potassium in the IV fluids. He was also initiated on oral magnesium due to his diarrhea. The patient was found to have a slightly decreased hemoglobin, however hemoglobin improved to 10.0 on 01/27. New medications on discharge: -Magnesium oxide 500 mg po daily New changes to home medications on discharge: -Increased potassium to 20 mEq po BID Regular home medications on discharge: -Celexa 20 mg po daily -Marinol 2.5 mg po BIDAC -Compazine 10 mg po every 6 hours PRN -Vitamin D3 1000 units po daily -Pepto-Bismol 15 mL po TID PRN -Allopurinol 200 mg po daily -Tylenol 1000 mg po every 6 hours PRN -Xarelto 15 mg po BID -Probiotic 1 capsule po BID -Levemir 7 units subQ at HS -Novolog 5 units subQ TID with meals -Zocor 20 mg po at HS -Omeprazole 20 mg po daily -Lisinopril 2.5 mg po daily Condition, Treatment, and Final Disposition: The patient is in stable condition at the time of discharge. He will be discharged home with his significant other. He will follow-up in the clinic with myself or Dr. Armstrong this week Monday or . Considerations at follow-up would include electrolyte monitoring. Discharge treatment plan was reviewed with Dr. Armstrong. He is in agreement with the above plan of care. - General Info Date of Service: 01/29/17 Functional Status: Reports: pain controlled, tolerating diet, ambulating, urinating, incentive spirometry. Denies: new symptoms - Review of Systems General: Reports: Weakness, Appetite (okay). Denies: Fever, Chills HEENT: Denies: headaches Pulmonary: Denies: shortness of breath Cardiovascular: Denies: Chest Pain Gastrointestinal: Reports: Decreased appetite, Diarrhea (stools loosened after barium yesterday). Denies: Abdominal pain, Constipation, Nausea, Vomiting - Patient Data Vitals - Most Recent: Last Vital Signs Temp 97.4 F 01/29/17 06:49 Pulse 88 01/29/17 06:49 Resp 16 01/29/17 06:49 BP 121/76 01/29/17 06:49 Pulse Ox 97 01/29/17 06:49 Weight - Most Recent: 138 lb I&O - Last 24 hours: Intake & Output 01/28/17 01/29/17 01/29/17 22:59 06:59 14:59 Intake Total 1139 537 Output Total 1200 200 Balance -61 337 Lab Results - Last 24 hrs: Laboratory Results - last 24 hr 01/28/17 01/28/17 01/28/17 Range/Units 11:19 17:30 20:39 Potassium (3.3-5.3) mmol/L POC Glucose 183 H 145 H 265 H (74-106) mg/dl 01/29/17 01/29/17 Range/Units 06:43 07:15 Potassium 3.7 (3.3-5.3) mmol/L POC Glucose 94 (74-106) mg/dl TERESA Results - Last 24 hrs: Microbiology 01/28/17 11:30 Clostridium difficile Toxin A&B (M) - Final Stool / Feces NEGATIVE CDIFF TOXIN Med Orders - Current: Current Medications Acetaminophen (Tylenol Extra Strength) 1,000 mg PO Q6H PRN PRN Reason: Pain Last Admin: 01/25/17 20:54 Dose: 1,000 mg Allopurinol (Zyloprim) 200 mg PO DAILY@1800 [facility] Last Admin: 01/28/17 17:36 Dose: 200 mg Cholecalciferol (Vitamin D3) 1,000 units PO DAILY@1800 [facility] Last Admin: 01/28/17 17:34 Dose: 1,000 units Citalopram Hydrobromide (Celexa) 20 mg PO DAILY [facility] Last Admin: 01/29/17 08:48 Dose: 20 mg Metronidazole (Flagyl 500 Mg In Ns 100 Ml) 100 mls @ 100 mls/hr IV Q8H [facility] Last Admin: 01/29/17 08:48 Dose: 100 mls/hr Potassium Chloride/Sodium Chloride (Normal Saline With 20 Meq Kcl) 1,000 mls @ 50 mls/hr IV ASDIRECTED [facility] Last Admin: 01/28/17 11:20 Dose: 50 mls/hr Insulin Aspart (Novolog) 0 unit SUBCUT 0730,1130,1730,2100 [facility] PRN Reason: Protocol Last Admin: 01/29/17 07:12 Dose: Not Given Insulin Detemir (Levemir) 7 unit SUBCUT BEDTIME [facility] Last Admin: 01/28/17 20:42 Dose: 7 units Lactobacillus Acidophilus/Rhamnosus (Multi-Ludmila Plus) 1 cap PO BID@1500,2100 [facility] Last Admin: 01/28/17 20:50 Dose: 1 cap Lisinopril (Prinivil) 2.5 mg PO DAILY@1800 [facility] Last Admin: 01/28/17 17:33 Dose: 2.5 mg Magnesium Oxide (Magnesium Oxide) 500 mg PO DAILY [facility] Last Admin: 01/29/17 08:48 Dose: 500 mg Omeprazole (Omeprazole) 20 mg PO DAILY@0600 [facility] Last Admin: 01/29/17 05:44 Dose: 20 mg Ondansetron HCl (Zofran Odt) 8 mg PO Q8H PRN PRN Reason: Nausea Potassium Chloride (Klor-Con 10) 20 meq PO BIDMEALS [facility] Last Admin: 01/29/17 08:48 Dose: 20 meq Prochlorperazine Maleate (Compazine) 10 mg PO Q6H PRN PRN Reason: Nausea Rivaroxaban (Xarelto) 15 mg PO BID [facility] Last Admin: 01/29/17 08:48 Dose: 15 mg Simvastatin (Zocor) 20 mg PO BEDTIME [facility] Last Admin: 01/26/17 20:48 Dose: 20 mg Sodium Chloride (Syrex Flush) 5 ml FLUSH Q8HR PRN PRN Reason: Keep Vein Open Vancomycin HCl (Vancomycin) 0.125 gm PO Q6H [facility] Last Admin: 01/29/17 05:44 Dose: 0.125 gm Discontinued Medications Acetaminophen (Tylenol Extra Strength) 1,000 mg PO ONETIME ONE Stop: 01/21/17 19:39 Last Admin: 01/21/17 19:41 Dose: 1,000 mg Acetaminophen (Tylenol Extra Strength) Confirm Administered Dose 1,000 mg .ROUTE .STK-MED ONE Stop: 01/21/17 19:39 Last Admin: 01/21/17 19:41 Dose: Not Given Diatrizoate Meglum/Diatrizoate Sod (Gastrografin 37%) 120 ml PO ONETIME ONE Stop: 01/28/17 12:01 Last Admin: 01/28/17 12:00 Dose: 120 ml Sodium Chloride (Normal Saline) 1,000 mls @ 125 mls/hr IV ASDIRECTED [facility] Last Admin: 01/21/17 20:41 Dose: 125 mls/hr Sodium Chloride (Normal Saline) 1,000 mls @ 30 mls/hr IV ASDIRECTED [facility] Last Admin: 01/22/17 18:42 Dose: 30 mls/hr Metronidazole (Flagyl 500 Mg In Ns 100 Ml) 50 mls @ 50 mls/hr IV Q8H [facility] Last Admin: 01/23/17 16:13 Dose: 50 mls/hr Sodium Chloride (Normal Saline) 1,000 mls @ 30 mls/hr IV DAILY@1800 [facility] Last Admin: 01/25/17 17:22 Dose: 30 mls/hr Potassium Chloride/Dextrose/Sod Cl (D5 1/2 Ns W/ 20 Meq/L Kcl) 1,000 mls @ 50 mls/hr IV ASDIRECTED [facility] Last Admin: 01/27/17 05:22 Dose: 50 mls/hr Insulin Detemir (Levemir) 7 unit SUBCUT ONETIME [facility] Last Admin: 01/26/17 22:14 Dose: 7 units Iopamidol (Isovue-300 (61%)) 75 ml IV . DIRECTED PRN PRN Reason: FOR RADIOLOGY EXAM Stop: 01/21/17 18:40 Metronidazole (Flagyl) 500 mg PO TID [facility] Stop: 01/29/17 22:00 Last Admin: 01/22/17 22:14 Dose: 500 mg Potassium Chloride (Klor-Con M20) 20 meq PO DAILY [facility] Last Admin: 01/28/17 08:29 Dose: 20 meq Sodium Chloride (Syrex Flush) 5 ml FLUSH Q8HR PRN PRN Reason: Keep Vein Open Last Admin: 06/03/17 20:42 Dose: 5 ml Sodium Chloride (Normal Saline) 50 ml FLUSH ONETIME ONE Stop: 01/21/17 18:40 Last Admin: 01/21/17 20:43 Dose: Not Given - Exam Quality Assessment: Reports: DVT prophylaxis (On Xarelto). Denies: supplemental oxygen, urine catheter General: Reports: alert, oriented, cooperative, no acute distress Lungs: Reports: Clear to auscultation, Normal respiratory effort Cardiovascular: Reports: Regular Rate, Regular Rhythm Abdomen: Reports: bowel sounds present (hyperactive), soft, no tenderness, no distension Extremities: Reports: no edema Skin: Reports: warm, dry Neurological: Reports: normal speech Psy/Mental Status: Reports: alert, normal affect, normal mood *Q Meaningful Use (DIS) - VTE *Q VTE Criteria *Q: - Stroke *Q Stroke Criteria *Q: - AMI *Q AMI Criteria *Q:
== END 2017-01-29 11:00 | disposition home or self-care (01) | DRG 390 ==
LOC: KA.ED 17:44 → KA.MS 19:54
PROVIDERS: ADMIT Physician Assistant Medical; ATTEND Family Medicine
DX: K56.60 Unspecified intestinal obstruction (principal); R01.1 Cardiac murmur, unspecified; E78.00 Pure hypercholesterolemia, unspecified; R19.7 Diarrhea, unspecified; B96.89 Other specified bacterial agents as the cause of diseases classified elsewhere; E87.6 Hypokalemia; Z85.048 Personal history of other malignant neoplasm of rectum, rectosigmoid junction, and anus; Z93.3 Colostomy status; I10 Essential (primary) hypertension; E78.5 Hyperlipidemia, unspecified; I65.23 Occlusion and stenosis of bilateral carotid arteries; E11.9 Type 2 diabetes mellitus without complications; K21.9 Gastro-esophageal reflux disease without esophagitis; F32.9 Major depressive disorder, single episode, unspecified; M10.9 Gout, unspecified; D64.9 Anemia, unspecified; M19.90 Unspecified osteoarthritis, unspecified site; Z85.038 Personal history of other malignant neoplasm of large intestine; Z86.718 Personal history of other venous thrombosis and embolism; Z79.899 Other long term (current) drug therapy; Z79.4 Long term (current) use of insulin; Z79.01 Long term (current) use of anticoagulants
CPT/HCPCS: 74177; 80053; 81001; 83690; 85025; 99285 ×2; A9270; Q9967; 36415; 74020; 74249; 74250; 80048; 82962; 84132; 87045; 87046; 87324; 87899; 89055; J1815-GY; J3370; J3480; J7030; Q9963

== ENCOUNTER 2017-02-10 09:58 | Inpatient (IN) | payer MEDICARE, BC ==
[2017-02-10] MEDS ORDERED: Iopamidol 612 MG/ML 75 ML Bottle IV ONE (10:06)
[2017-02-10] MEDS ORDERED: Sodium Chloride 0.9% 50 ML SDV FLUSH SCH (10:15)
[2017-02-10] MEDS: D5 1/2 NS w/ 20 mEq/L KCl 1,000 ML IV SCH ×2 (13:46→23:50)
[2017-02-10] MEDS: Metoclopramide 10 MG/2 ML SDV IVPUSH SCH ×2 (13:48→21:53)
[2017-02-10] MEDS: Insulin Aspart 100 Units/ML 3 ML Pen SUBCUT SCH (18:13)
[2017-02-10] MEDS: Cholecalciferol (Vitamin D3) 1,000 Unit Tab PO SCH (18:16)
[2017-02-10] MEDS: Rivaroxaban 10 MG Tab PO SCH (18:16)
[2017-02-10] MEDS: Allopurinol 100 MG Tab PO SCH (18:16)
[2017-02-10] MEDS: Insulin Detemir 100 Units/ML 3 ML Pen SUBCUT SCH (20:58)
[2017-02-10] MEDS: Simvastatin 20 MG Tab PO SCH (21:02)
[2017-02-11] MEDS: Metoclopramide 10 MG/2 ML SDV IVPUSH SCH ×3 (06:07→23:05)
[2017-02-11] MEDS: Omeprazole 20 MG Cap.CR PO SCH (06:11)
[2017-02-11 07:44] LABS: CHLORIDE,CL 104 mmol/L (98-115); SODIUM,NA 139 mmol/L (136-145)
[2017-02-11] MEDS: Insulin Aspart 100 Units/ML 3 ML Pen SUBCUT SCH ×3 (08:49→17:55)
[2017-02-11] MEDS: Magnesium Oxide 500 MG Tab PO SCH (08:51)
[2017-02-11] MEDS: B.Bifidum/B.Longum/L.Acidophilus/L.Rhamnosus (Probiotic) Cap PO SCH (08:51)
[2017-02-11] MEDS: Escitalopram 10 MG Tab PO SCH (08:52)
[2017-02-11] MEDS: D5 1/2 NS w/ 20 mEq/L KCl 1,000 ML IV SCH ×2 (09:52→19:55)
--- NOTE | 2017-02-11 12:54 | PN ---
02/11/2017 PATIENT NAME: RIAN JUSTIN CHIEF COMPLAINT: No longer has abdominal pain, feels much better today. Does have an NG tube in. HISTORY: This 81-year-old, frail gentleman, who has had recurrent hospitalizations for ongoing ileus/possible bowel obstructions, was admitted yesterday by Malu Centeno, nurse practitioner at [facility], when he came to the clinic with concerns of ongoing abdominal pain. He also had some diarrhea. The patient was hospitalized about two weeks ago for small bowel obstruction. He also had C difficile disease infection. He had a repeat stool testing along with a barium swallow, which showed a small bowel follow through prior to discharge that were negative. The patient reported that since discharge, his stools have become more liquid like. He does have a colostomy, and when he saw Malu, he was having to empty a full bag about one time a day that is about 50% less than he normally empties it. When he had saw her, the bag was not full. The stool however was greenish and brown. He did have some abdominal pain around his periumbilical, intermittent, and kind of resolves when he will hear a loud gurgling abdominal rumbling, which produces some air and he feels better. He did not have any nausea or vomiting. He had a loss of appetite. His weight is down. The family is concerned that he is down about 6 pounds in a week. He does have a history of adenocarcinoma of the colon and rectal cancer. He has an appointment for his oncologist in 05/2017. He had a negative CT abdominal scan in November. PHYSICAL EXAMINATION: VITAL SIGNS: Vital signs were good. Temperature 97.1, heart rate 80, blood pressure 114/70, which is an improvement, it was low on admission. Respiratory rate 18. O2 sat 97%. CONSTITUTIONAL: The patient is alert, laconic in speech, high Coreas sitting, family is at bedside. CV: Regular rate and rhythm. LUNGS: Clear to auscultation. No CVA tenderness. GI: Does have a nasogastric tube present. Did receive about 800 mL of dark brown liquid on the vault clerk, nontender. Abdomen is flat. He got hypertonic bowel tones mainly on the left side. Mild green stool in colostomy bag. EXTREMITIES: No edema. No signs of active DVT. He is on Xarelto. DIAGNOSTICS: Abdominal x-ray in [facility], did appear to have some instruction, however, CT of the abdomen did not show obstruction, however, did show mild dilatation of the small bowel, could be early ileus or obstruction. LABS: C diff is negative. White count 4.0, hemoglobin 10.0, hematocrit 29.4, neutrophil percentage is 73. Sodium, potassium, BUN, and creatinine normal. Glucose slightly low at 106, holding lunch insulin today. Calcium 8.6. Creatinine clearance 66. Intake and output, intake 1620, output approximately 1550. Intake includes all IV, output 550 ostomy, all during vault clerk, 550 urine and 500 colostomy. IMPRESSION/PLAN: Ileus, rule out small-bowel obstruction. Apparently, this has ruled out. Continue with nasogastric tube since he has had a significant amount on vault clerk. He is improving. Has very good bowel tones. Hyperactive. No longer pain. Abdomen is decompressed. I will continue with Reglan. Family educated regarding long-term risk versus benefit of this medication. Continue nasogastric tube. Hopefully, tomorrow we can clamp it. Continue n.p.o. Today. Strict intake and output including water for medications. Clamp NG tube 1 hour after medication. Secondary problems: History of deep vein thrombosis, currently on Xarelto. History of recent Clostridium difficile infection, this is negative. Electrolyte disturbance history. We will monitor carefully. History of adenocarcinoma of the colon. The patient is to see Dr. Rouse in May, likely may have to see GI sooner upon discharge. Recent significant weight loss. Diabetes mellitus. Adjust insulin according to blood sugar levels. Hold lunch insulin. Depression. He is on Lexapro. Hold unnecessary medication. OVERALL PLAN: Strict I's and O's. Continue nasogastric decompression. Monitor for NG output. Continue n.p.o. The patient will require approximately 1600 mL per 24 hours. We will reduce his IV rate from 100 to 85 mL/h. /[id number]/MODL
[2017-02-11] MEDS: Rivaroxaban 10 MG Tab PO SCH (17:57)
[2017-02-11] MEDS: Allopurinol 100 MG Tab PO SCH (17:57)
[2017-02-11] MEDS: Insulin Detemir 100 Units/ML 3 ML Pen SUBCUT SCH (20:53)
[2017-02-12] MEDS: Omeprazole 20 MG Cap.CR PO SCH (05:18)
[2017-02-12] MEDS: D5 1/2 NS w/ 20 mEq/L KCl 1,000 ML IV SCH ×2 (05:18→16:43)
[2017-02-12] MEDS: Metoclopramide 10 MG/2 ML SDV IVPUSH SCH ×3 (05:19→22:10)
[2017-02-12 07:47] LABS: CHLORIDE,CL 104 mmol/L (98-115); SODIUM,NA 140 mmol/L (136-145)
[2017-02-12] MEDS: B.Bifidum/B.Longum/L.Acidophilus/L.Rhamnosus (Probiotic) Cap PO SCH (08:46)
[2017-02-12] MEDS: Escitalopram 10 MG Tab PO SCH (08:46)
[2017-02-12] MEDS: Magnesium Oxide 500 MG Tab PO SCH (08:46)
[2017-02-12] MEDS: Insulin Aspart 100 Units/ML 3 ML Pen SUBCUT SCH ×3 (08:46→17:44)
--- NOTE | 2017-02-12 12:38 | PN ---
02/12/2017 PATIENT NAME: RIAN JUSTIN CHIEF COMPLAINT: No longer has abdominal pain. Does feel overall better. Ongoing nasal gastric tube in. Significant output past 24 hours of 1150. He is on low intermittent wall suction. Has brownish discharge. HISTORY: 81-year-old, frail gentleman, recurrent hospitalization for ongoing ileus with possible small bowel obstruction, was admitted by Malu Centeno, nurse practitioner, at [facility]. Ongoing abdominal pain with some diarrhea after colostomy. The patient was hospitalized two weeks ago approximately. He did have a small bowel obstruction at that time with recurrent C difficile infection; however, he had a repeat stool along with a barium swallow, which showed a small bowel follow through prior to discharge, and he was negative. 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 Again, this recent hospitalization prior to this two weeks ago, he had a C difficile; however, he was negative on discharge. Does have a colostomy. When he saw Malu, he was emptying a full bag about one time a day along with some periumbilical intermittent abdominal pain. He was basically admitted for IV hydration, electrolyte correction, nasogastric tube for decompression along with GI motility agents. PHYSICAL EXAMINATION: VITAL SIGNS: Today's vital signs include temperature 97.6, heart rate 88 and regular, blood pressure 117/69, O2 sats 97%, respiratory rate 16. LUNGS: Clear to auscultation. Good diaphragmatic excursion. CV: Regular rate and rhythm. GI: Nasogastric tube present, clamped. Upon assessment, does have ongoing bowel tones noted. He has no abdominal pain. The colostomy does have cummings color stool about 25% full. Does have some air. DIAGNOSTICS: Abdominal x-ray in [facility] did show possible obstruction. CT of the abdomen in followup while in the hospital did not show obstruction, however, mild dilatation of the small bowel with possible early ileus or obstruction. LABORATORY DATA: Initial Clostridium difficile toxin was negative, however, PCR chain was detected. White count 4.8, hemoglobin 10.2, hematocrit 30.9. Sodium and potassium normal, BUN 5, creatinine 0.69, creatinine clearance is 67, GFR is greater than 60. Glucose 103, holding insulin. Calcium 8.6, albumin 2.56, total protein 6.2. Intake and output; total intake about 2400 in, total output 2350 out. Breakdown: Output through NG tube over 1150, which includes 675 on a.m. yesterday, 175 on p.m. yesterday and 300 out last night. Does have D5 and half normal saline with 20 mEq of potassium running at a 100. IMPRESSION/PLAN: 1. Ileus with possible small bowel obstruction. He still has significant NG output, continue with nasogastric tube. Monitor electrolytes. This is low intermittent suction. Continue with gastric motility of Reglan. Continue n.p.o. Status. Strict intake and output please. We will clamp the NG tube one hour after medications. 2. Clostridium difficile. PCR positive. Infectious Disease consulted today. They do recommend treatment. We will place him on IV metronidazole until NG tube is clamped and he will need vancomycin extended taper 250 mg q.i.d. for two weeks, t.i.d. for one week, b.i.d. for a week, daily for a week, every other day for seven doses and then every 72 hours x7 doses. This will all be oral. 3. Diabetes mellitus. His insulin will be held accordingly according to his blood sugars. 4. Secondary diagnoses. History of DVTs, he is on Xarelto. History of electrolyte disturbance, they are good today. We will continue to monitor. 5. History of adenocarcinoma of the colon. The patient did see Dr. Rouse in May, most likely he will have to see him sooner. 6. Depression. He is on Lexapro. OVERALL PLAN: Begin Flagyl IV along he has an NG tube. Vancomycin taper as scheduled. Strict I's and O's. Clamp NG one hour after each vancomycin dose. Continue n.p.o. Decrease rate to 85 mL an hour of IV. Educated family extensively regarding treatment plan. /[id number]/MODL
[2017-02-12] MEDS: metroNIDAZOLE/Normal Saline 500 MG in Premix Bag 1 BAG IV SCH ×2 (12:45→20:52)
[2017-02-12] MEDS: VANCOMYCIN PO SCH ×3 (13:00→20:52)
[2017-02-12] MEDS: Rivaroxaban 10 MG Tab PO SCH (17:43)
[2017-02-12] MEDS: Allopurinol 100 MG Tab PO SCH (17:43)
[2017-02-12] MEDS: Insulin Detemir 100 Units/ML 3 ML Pen SUBCUT SCH (20:51)
[2017-02-13] MEDS: metroNIDAZOLE/Normal Saline 500 MG in Premix Bag 1 BAG IV SCH ×3 (04:30→19:56)
[2017-02-13] MEDS: D5 1/2 NS w/ 20 mEq/L KCl 1,000 ML IV SCH ×2 (04:47→18:49)
[2017-02-13] MEDS: Metoclopramide 10 MG/2 ML SDV IVPUSH SCH ×3 (06:03→21:03)
[2017-02-13] MEDS: Omeprazole 20 MG Cap.CR PO SCH (06:03)
[2017-02-13] MEDS: Insulin Aspart 100 Units/ML 3 ML Pen SUBCUT SCH ×3 (07:04→17:54)
[2017-02-13 08:12] LABS: CHLORIDE,CL 105 mmol/L (98-115); SODIUM,NA 139 mmol/L (136-145)
[2017-02-13] MEDS: VANCOMYCIN PO SCH ×4 (09:48→21:03)
[2017-02-13] MEDS: Magnesium Oxide 500 MG Tab PO SCH (09:49)
[2017-02-13] MEDS: Escitalopram 10 MG Tab PO SCH (09:49)
[2017-02-13] MEDS: B.Bifidum/B.Longum/L.Acidophilus/L.Rhamnosus (Probiotic) Cap PO SCH (11:51)
--- NOTE | 2017-02-13 11:54 | PN ---
02/13/2017 PATIENT NAME: RIAN JUSTIN CHIEF COMPLAINT: He has lost some weight during this admission; however, he has been n.p.o., receiving IV fluids. Nasogastric tube. Overall, he does feel better. He has less of his NG tube approximately 200 per shift, this is much improvement. HISTORY: This 81-year-old frail gentleman with recurrent hospitalizations, ongoing due to ileus with possible small bowel obstruction. He was admitted by Malu Centeno NP, [facility]. He had some diarrhea through his colostomy. He was hospitalized about two to two and a half weeks ago with small bowel obstruction. At that time, he had recurrent C. difficile infection; however, he did have a repeat C. difficile that was negative upon discharge. He did have a small bowel follow-through which was negative. However, yesterday he did have a C. difficile PCR test that came back which breaks the tie break regarding C. difficile infection requiring treatment. He has been placed on oral tapering dose of vancomycin. He will be tapered extensively over the next several weeks. DIAGNOSTICS: Abdominal x-ray at [facility] shows possible obstruction, subsequent CT of the abdomen while in the hospital ruled out of obstruction; however, mild dilatation with a possible early ileus or obstruction. Microbiology report again PCR C. difficile is positive. The patient has had about approximately two positive C. difficile treatments required hospitalization in the past six months. PHYSICAL EXAMINATION: VITAL SIGNS: Weight is 127. Approximately 5 to 6 pounds weight loss since admission. Blood pressure 122/76, temperature 98.3, heart rate 96 and regular, respiratory rate 16, and O2 sats 96% on room air. CV: Regular rate and rhythm. No murmur. LUNGS: Clear to auscultation with good diaphragmatic excursion. GI: Nontender. Abdomen is flat, minimal amount in colostomy. Nasogastric tube clamped during the assessment, he has good bowel tones. Intake and output breakdown includes urine output 1350, ostomy output 24 hours 175. NG approximately 200 per shift, total of 625 with 50% reduction past 24 hours. LABORATORY DATA: White count of 4.8, hemoglobin 10.2, and hematocrit 30.9. Sodium and potassium are normal. BUN 5, creatinine 0.70. Creatinine clearance of 66. GFR greater than 60. Blood glucose 83 and calcium 8.7. IMPRESSION/PLAN: 1. Ileus. Resolving. NG tube, 50% reduced, past 24 hours; however, approximately 200 per shift, likely we will clamp this afternoon if it gets under 200. Monitor electrolytes. Continue with fluid requirements. New NG to low intermittent suction. Continue with gastric motility of Reglan. N.p.o., ongoing until he can have his NG tube clamped which maybe this p.m. shift. Strict I and O please. Having NG tube 1 hour after medications. 2. Clostridium difficile. Recurrent with PCR if positive. Continue with IV metronidazole as long as he has NG tube, likely we will be able to discontinue metronidazole tomorrow. He does have ongoing oral vancomycin with an extended taper dosing. 3. Diabetes mellitus. Less insulin requirement. We will shift to a sliding scale. 4. History of deep vein thrombosis, he is on Xarelto. 5. History of adenocarcinoma of the colon. The patient is to see Dr. Rouse in May, most likely will require earlier consultation, we will follow up as outpatient. 6. Depression. He is on Lexapro. This seems to be stable. OVERALL PLAN: Continue with Flagyl as long as he has an EEG, vancomycin taper, likely we will clamp the NG tube this p.m. or nighttime shift, and hopefully, we can discontinue this tomorrow, and begin this evening oral supplementation for nutrition. Continue rate of IV fluids at 85 mL an hour. Family was educated this weekend extensively regarding the treatment plan and again this morning. They agree with the plan. /[id number]/MODL
[2017-02-13] MEDS: Rivaroxaban 10 MG Tab PO SCH (17:57)
[2017-02-13] MEDS: Allopurinol 100 MG Tab PO SCH (17:57)
[2017-02-13] MEDS: Insulin Detemir 100 Units/ML 3 ML Pen SUBCUT SCH (21:02)
[2017-02-13] MEDS ORDERED: Acetaminophen 325 MG Tab PO PRN (22:03)
[2017-02-14] MEDS: metroNIDAZOLE/Normal Saline 500 MG in Premix Bag 1 BAG IV SCH (03:18)
[2017-02-14] MEDS: B.Bifidum/B.Longum/L.Acidophilus/L.Rhamnosus (Probiotic) Cap PO SCH (06:11)
[2017-02-14] MEDS: Metoclopramide 10 MG/2 ML SDV IVPUSH SCH ×3 (06:11→21:00)
[2017-02-14] MEDS: Omeprazole 20 MG Cap.CR PO SCH (06:11)
[2017-02-14] MEDS: Insulin Aspart 100 Units/ML 3 ML Pen SUBCUT SCH ×3 (07:12→17:55)
[2017-02-14] MEDS: VANCOMYCIN PO SCH ×4 (08:56→20:54)
[2017-02-14] MEDS: Escitalopram 10 MG Tab PO SCH (08:56)
[2017-02-14] MEDS: Magnesium Oxide 500 MG Tab PO SCH (08:56)
[2017-02-14] MEDS: D5 1/2 NS w/ 20 mEq/L KCl 1,000 ML IV SCH ×2 (08:58→20:57)
--- NOTE | 2017-02-14 13:55 | PN ---
02/14/2017 PATIENT NAME: RIAN JUSTIN CHIEF COMPLAINT: Feels better, tolerating diet. No abdominal pain. Nasogastric tube was clamped last night on about 1500, he has only received a total of 75 output within the past 24 hours of his nasogastric tube, appears to be improving. HISTORY: This 81-year-old, frail gentleman with recurrent hospitalization due to ongoing ileus and small bowel obstruction was admitted by Malu Centeno initially. He had some diarrhea to his colostomy. This was a repeat hospitalization due to small bowel obstruction. At that time, he did have recurrent C difficile infection; however, we did have a repeat C difficile infection that was negative upon discharge on his last admission. He did have a small bowel follow-through, which was negative during this hospitalization. His PCR C difficile did come back positive, so we decided to treat with ongoing long- term slow tapered dose of oral vancomycin, this seems to have improved well. DIAGNOSTICS: Abdominal x-ray at [facility] shows possible obstruction, however, subsequent CT while in the hospital ruled out obstruction, however, possible early ileus or obstruction did have some mild dilatation. LABORATORY DATA: This morning, glucose 94. I changed him to low-dose sliding scale weight-based insulin due to anorexia. Electrolytes yesterday were normal. Drug clearance around 66. Intake and output much improved as far as his output on his NG past 24 hours on his gastric amount was 75 mL, stool amount was 300, ostomy was again 300, urine 1500, total intake 2288, total output 1875. I did place him back on a slow diet of soft and Ensure. He is taking in slowly. PHYSICAL EXAMINATION: VITAL SIGNS: Temperature 98.0, the patient's weight is 127 pounds about the same as yesterday, blood pressure 122/71, heart rate 85, O2 saturation 97%, respiratory rate 16. CV: Regular rate and rhythm with no murmur. LUNGS: Clear to auscultation. GI: Nontender. Abdomen is flat. He does have some good bowel tones. Nasogastric tube was clamped and discontinued from suction. This will be pulled out today. IMPRESSION/PLAN: 1. Ileus, likely clinically resolved. Discontinue nasogastric tube today. Continue with GI motility of Reglan, advance his diet today. Monitoring for ongoing signs and symptoms of ileus. Continue with intake and output. Continue with IV fluids today. Monitor electrolytes. Have him walk around the chiu. 2. Clostridium difficile. Recurrent with PCR positive. We will discontinue IV metronidazole since he does not have a nasogastric tube. Continue with oral vancomycin taper. 3. Diabetes mellitus type 2. Due to the anorexia, changed him to a sliding scale. Low weight based. Blood sugar adequate. 4. History of DVT, currently on Xarelto. 5. History of adenocarcinoma of the colon. 6. Depression. Seems stable. Good family support. OVERALL PLAN: Discontinue IV metronidazole. Continue with oral vancomycin. The patient could possibly be discharged in the morning depending on how he does with his advanced diet. /[id number]/MODL
[2017-02-14] MEDS: Rivaroxaban 10 MG Tab PO SCH (17:54)
[2017-02-14] MEDS: Allopurinol 100 MG Tab PO SCH (17:54)
[2017-02-14] MEDS: Insulin Detemir 100 Units/ML 3 ML Pen SUBCUT SCH (20:53)
[2017-02-14] MEDS: Sodium Chloride 0.9% 5 ML Syringe FLUSH PRN (21:00)
[2017-02-15] MEDS: Metoclopramide 10 MG/2 ML SDV IVPUSH SCH (05:57)
[2017-02-15] MEDS: Omeprazole 20 MG Cap.CR PO SCH (05:57)
[2017-02-15] MEDS: Sodium Chloride 0.9% 5 ML Syringe FLUSH PRN (05:59)
[2017-02-15] MEDS: B.Bifidum/B.Longum/L.Acidophilus/L.Rhamnosus (Probiotic) Cap PO SCH (06:00)
[2017-02-15] MEDS: Insulin Aspart 100 Units/ML 3 ML Pen SUBCUT SCH ×3 (07:04→18:02)
[2017-02-15] MEDS: VANCOMYCIN PO SCH ×4 (09:19→21:00)
[2017-02-15] MEDS: Escitalopram 10 MG Tab PO SCH (09:19)
[2017-02-15] MEDS: Magnesium Oxide 500 MG Tab PO SCH (09:19)
[2017-02-15 09:41] LABS: CHLORIDE,CL 105 mmol/L (98-115); SODIUM,NA 139 mmol/L (136-145)
[2017-02-15] MEDS ORDERED: Metoclopramide 5 MG Tab PO SCH (11:00)
[2017-02-15] MEDS ORDERED: Metoclopramide 10 MG Tab PO SCH (11:05)
[2017-02-15] MEDS: Metoclopramide 10 MG Tab PO SCH ×2 (11:22→17:22)
[2017-02-15] MEDS: Nystatin Susp 100,000 Unit/ML 5 ML UD Cup PO SCH ×2 (17:21→21:01)
[2017-02-15] MEDS: Allopurinol 100 MG Tab PO SCH (17:23)
[2017-02-15] MEDS: Rivaroxaban 10 MG Tab PO SCH (17:23)
[2017-02-15] MEDS: Cholecalciferol (Vitamin D3) 1,000 Unit Tab PO SCH (17:27)
[2017-02-15] MEDS: Simvastatin 20 MG Tab PO SCH (21:00)
[2017-02-15] MEDS: Insulin Detemir 100 Units/ML 3 ML Pen SUBCUT SCH (21:04)
[2017-02-16] MEDS: Metoclopramide 10 MG Tab PO SCH (06:05)
[2017-02-16] MEDS: B.Bifidum/B.Longum/L.Acidophilus/L.Rhamnosus (Probiotic) Cap PO SCH (06:05)
[2017-02-16] MEDS: Omeprazole 20 MG Cap.CR PO SCH (06:05)
[2017-02-16 06:29] VITALS: BP 129/74
[2017-02-16] MEDS: Insulin Aspart 100 Units/ML 3 ML Pen SUBCUT SCH (07:09)
--- NOTE | 2017-02-16 07:58 | PN ---
02/15/2017 PATIENT NAME: RIAN JUSTIN CHIEF COMPLAINT: Did vomit yesterday supper with some mild nausea. However, the patient felt it was due to the meal, he ate fish. Otherwise, he has had no abdominal distention. His NG tube has been out approximately 48 hours from now, and so he is starting to have his appetite picked up. His weight is up to 2 pounds today which is good. BRIEF HISTORY: This 81-year-old frail gentleman, recurrent hospitalization due to ongoing ileus and small bowel obstruction, that looks like it has clinically resolved. His NG tube has been out for about 48 hours. He has had no ongoing abdominal pain or distention. Other than that, small bout of emesis; however, was quite large amount. He does have a repeat C. diff on PCR. He is on oral vancomycin extended taper dose. LABORATORY DATA: This morning, white count normal 6.0, hemoglobin 10.8, hematocrit 32.1. Sodium, potassium, BUN, and creatinine all normal. Glucose is up 202. We will change his fluid. Calcium 8.6. PHYSICAL EXAMINATION: VITAL SIGNS: Temperature 98.6, heart rate 108, O2 saturations 96% on room air. He weighed 129 pounds 8 ounces. The patient seems to have improved affect today. LUNGS: Clear. CV: Regular rate and rhythm. GI: Nontender, flat abdomen. Good bowel tones. No longer has nasogastric tube in. Again, microbiology report positive for PCR, C. diff. Intake and output past 24 hours: Total intake is approximately 3200, total output is 1926. Stool in colostomy was 300. Emesis of large volume; however, nonmeasurable. Urine 1625. IMPRESSION AND PLAN: 1. Ileus appears to have resolved. We will change his Reglan to oral and reduced it by 50%. This will be 5 mg every 8 hours orally. Continue I and O. Electrolytes are good. We will have him do continue his ambulation around the clinic. He should be up in a chair. Cough and deep breathing today. 2. Clostridium difficile recurrent with PCR positive. I discontinue IV metronidazole yesterday. However, we will continue oral vancomycin taper. 3. Diabetes mellitus. He is starting to eat now more and we will change saline lock his IV fluids. 4. History of deep venous thrombosis, currently on Xarelto. 5. History of adenocarcinoma of the colon. 6. Depression seems to be stable. OVERALL PLAN: Monitor his I and O. Now that we discontinuing his IV fluids. Continue with oral vancomycin. Likely will be discharged in the morning. The patient will need a close followup care with GI and most likely Oncology sooner than May as planned. Continue with nutritional support today with DICTATION ENDS HERE /[id number]/MODL
[2017-02-16] MEDS: Magnesium Oxide 500 MG Tab PO SCH (08:06)
[2017-02-16] MEDS: Nystatin Susp 100,000 Unit/ML 5 ML UD Cup PO SCH (08:06)
[2017-02-16] MEDS: VANCOMYCIN PO SCH (08:06)
[2017-02-16] MEDS: Escitalopram 10 MG Tab PO SCH (08:06)
--- NOTE | 2017-02-17 07:59 | DISCH ---
FINAL DIAGNOSIS: 1. Ileus, resolved. 2. Small bowel obstruction, resolved. 3. C. diff positive, on extended vancomycin orally. Secondary final diagnosis: 1. Diabetes mellitus, stable. 2. History of deep vein thrombosis, currently on Xarelto. 3. History of adenocarcinoma of the colon, has followup with Oncology in May. 4. Depression, which is stable. HISTORY: This 81-year-old gentleman who initially was admitted came to the clinic with some concerns of abdominal pain and some diarrhea. He had been hospitalized about 2 weeks prior to that with a small-bowel obstruction, also with the C. difficile infection. This was a recurrent infection. He had two this year already; however, he did have a repeat stool testing prior to his previous discharge which was negative; however, his PCR on this admission was positive on retesting. The patient does have a colostomy and when he was seen, he had to empty that full bag about one time a day. He had some greenish-brown stool; however, he was experiencing some umbilical abdominal pain intermittently, however, seemed to be resolved a little bit on gas when he had some gas. The patient does have a history of adenocarcinoma of the colon and rectal cancer. He had negative CT scan in November, he is currently not taking any current treatments for his history of CA. Abdominal x-rays at [facility] prior to admission did appear to have an obstruction; however, subsequent CT prior to admission showed bowel dilatation likely ileus with possible early ileus or early obstruction. HOSPITAL COURSE: Hospital course went fairly well. However, he did require nasogastric tube for decompression and early on within about 48 hours into his nasogastric tube, he had considerable amount of output; however, over time this output was slowly decreased per shift. I discontinued the clamp and the nasogastric tube when he had less than 200 output per shift and then discontinued it within 24 hours. After clamping, he had no more nausea and no more abdominal distention, and he was having greater output. He was placed on IV push of Reglan 10 mg q.8 hours. I did decrease this by 50% over the course of his hospital stay. We did keep him n.p.o. for quite some time with IV of dextrose running in with insulin adjustments; however, his appetite did pick up worker, and he was able to tolerate a meal, soft diet with Glucerna; however, he did have one bout of emesis, but he felt that was due to fish; however, this improved dramatically. He had no more vomiting, and no more nausea thereafter. His vital signs remained stable. He never became hemodynamically unstable. He did require some electrolyte replacement. His Clostridium difficile recurrent PCR came back positive, so he was placed on an extended vancomycin taper dose. This will be long-term. Also, I placed him on concomitant metronidazole orally as long as he had the nasogastric tube. Metronidazole was discontinued as soon as the nasogastric tube was pulled. He was encouraged to ambulate around the chiu aggressively, he did this, this helped with GI motility. On discharge, he will be placed on erythromycin base along with MiraLAX. LABS: White count 6.0, hemoglobin 10.8, hematocrit 32.1. Sodium and potassium, BUN and creatinine all normal. Creatinine clearance 68, glucose 102, calcium 8.6. PHYSICAL EXAM ON DISCHARGE: Vital signs on discharge, weight is 129 pounds that is slightly up from admission, temperature 98.8, heart rate 100, O2 sats 94% on room air, respiratory rate 20. His lungs were clear to auscultation. GI: Good bowel tones. No distention. Output on his colostomy adequate. Past 24 hours Intake and Output, approximately 1050 In and 1400 Out. Ostomy output approximately 300 per shift. The patient ate up to 40-50% of his meals. I did consult with Infectious Disease regarding his recurrent PCR C. difficile infection and was agreed upon for an extended vancomycin taper dose over the course of several weeks. DISCHARGE MEDICATIONS: 1. Vancomycin oral taper dose. Taper dose includes 250 mg capsules one p.o. q.i.d. for 10 days, then one t.i.d. p.o. for seven days, then one b.i.d. for seven days, one daily for seven days, and then one every other day for seven days, and then one every 72 hours x7 doses, all ending on April 22. 2. Erythromycin base 250 mg q.8 hours p.o. 3. MiraLAX 17 g p.o. daily. Continue all other home medications. DISPOSITION: The patient will be discharged from the hospital. He is doing much better; however, he still fragile concerning with ongoing weight loss and nutritional status. He is to report anymore abdominal pain, any fever or vomiting, or any abdominal distention or lack of output on his colostomy. Monitor ongoing blood sugars, adjust insulin dose accordingly. He will follow up with Malu Centeno. FOLLOW-UP RECOMMENDATIONS: Review patient compliance with vancomycin and erythromycin base. Consider followup with Dr. Iniguez within one month. MEDICAL DECISION MAKIN minutes was spent on this discharge planning, pharmacy consultation, care coordination with Muck Farmer, and followup. /[id number]/MODL
== END 2017-02-16 10:15 | disposition home or self-care (01) | DRG 390 ==
LOC: KA.CT 09:58 → UNDOADMIN 12:30 → KA.MS 12:30 → UNDODISIN 02-16 10:15
PROVIDERS: ADMIT Nurse Practitioner Family; ATTEND Nurse Practitioner Family
PROC: 0D9670Z Drainage of Stomach with Drainage Device, Via Natural or Artificial Opening (ICD-10-PCS; principal; 2017-02-10)
DX: K56.7 Ileus, unspecified (principal); R10.9 Unspecified abdominal pain; R19.7 Diarrhea, unspecified; E83.42 Hypomagnesemia; E87.6 Hypokalemia; I10 Essential (primary) hypertension; K56.60 Unspecified intestinal obstruction; E78.5 Hyperlipidemia, unspecified; Z79.4 Long term (current) use of insulin; Z79.01 Long term (current) use of anticoagulants; Z79.899 Other long term (current) drug therapy; B96.89 Other specified bacterial agents as the cause of diseases classified elsewhere; E11.9 Type 2 diabetes mellitus without complications; Z93.3 Colostomy status; Z85.048 Personal history of other malignant neoplasm of rectum, rectosigmoid junction, and anus; F32.9 Major depressive disorder, single episode, unspecified; Z86.718 Personal history of other venous thrombosis and embolism; Z85.038 Personal history of other malignant neoplasm of large intestine
CPT/HCPCS: 74170; Q9967; 36415; 74178; 80048; 80053; 82962; 85025; 87324; A9270-GY; J2765; J3370; J3480

== ENCOUNTER 2017-02-18 12:44 | Emergency (ER) | payer MEDICARE, BC ==
[2017-02-18 12:57] VITALS: BP 83/54
--- NOTE | 2017-02-18 13:17 | EDM.PDOC ---
ED HPI GENERAL MEDICAL PROBLEM - General Stated Complaint: HEAD LACERATION, LEFT RIB PAIN Time Seen by Provider: 02/18/17 12:54 Source of Information: Reports: Patient, Significant Other History Limitations: Reports: No Limitations - History of Present Illness INITIAL COMMENTS - FREE TEXT/NARRATIVE: Patient presents with laceration lateral to left eye that happened when he fell. He denies LOC or blurry vision. He does have some left lower rib pain since he fell. His SO tells me she was talking to him just prior to his fall but she was in the other room and heard it. He had been sitting and got up to walk with his walker when he fell. He was diagnosed with C diff a week ago and is treating with oral vancomycin; is having lots of diarrhea. BP on arrival to ER was 83 systolic and after lying for 20 minutes is 118. - Related Data Allergies Allergy/AdvReac Type Severity Reaction Status Date / Time No Known Drug Intolerances Allergy Cannot Verified 02/18/17 12:58 Remember Home Meds: Home Meds Allopurinol [Zyloprim] 200 mg PO DAILY@1800 09/12/14 [History] Cholecalciferol (Vitamin D3) [Vitamin D3] 1,000 units PO DAILY@1800 09/12/14 [ History] Lisinopril 2.5 mg PO DAILY@1800 09/12/14 [History] Omeprazole [Prilosec] 20 mg PO DAILY@0600 09/12/14 [History] Simvastatin [Zocor] 20 mg PO BEDTIME 09/12/14 [History] Acetaminophen 1,000 mg PO Q6H PRN 11/11/16 [History] Dronabinol [Marinol] 2.5 mg PO BIDAC 11/11/16 [History] Insulin Aspart [Novolog Flexpen] 5 unit SQ TIDMEALS 11/11/16 [History] Insulin Detemir [Levemir] 7 unit SUBCUT BEDTIME 11/11/16 [History] Ondansetron HCl [Ondansetron] 8 mg PO Q8H PRN 11/11/16 [History] Prochlorperazine Maleate [Compazine] 10 mg PO Q6H PRN 11/11/16 [History] Magnesium Oxide 500 mg PO DAILY #30 tablet 01/29/17 [Rx] Potassium Chloride [Klor-Con M20] 20 meq PO BID #30 tab.er 01/29/17 [Rx] Escitalopram [Lexapro] 10 mg PO DAILY 02/10/17 [History] L. Acidophilus/Pectin, [place] [Acidophilus Probiotic] 2 each PO DAILY 02/10/17 [ History] Magnesium Hydroxide [Milk of Magnesia] 30 ml PO BID PRN 02/10/17 [History] Rivaroxaban [Xarelto] 20 mg PO 1800 02/10/17 [History] Sennosides/Docusate Sodium [Senna-Docusate Sodium] 1 tab PO BID PRN 02/10/17 [ History] Erythromycin Base [Onel-Tab] 250 mg PO Q8HR #45 tablet 02/16/17 [Rx] Polyethylene Glycol 3350 [MiraLAX] 17 gm PO DAILY #1 bottle 02/16/17 [Rx] Vancomycin HCl 1 cap PO QID 02/18/17 [History] oxyCODONE HCl/Acetaminophen [oxyCODONE-Acetaminophen 5-325] 1 - 2 tab PO Q6H PRN 02/18/17 [History] Past Medical History HEENT History: Reports: Impaired Vision Cardiovascular History: Reports: Blood Clots/VTE/DVT, Heart Murmur, High Cholesterol, Hypertension, Syncope Respiratory History: Reports: Other (See Below) Other Respiratory History: 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 Gastrointestinal History: Reports: None Other Gastrointestinal History: colon and rectal CA Genitourinary History: Reports: Renal Calculus Other Genitourinary History: 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 Musculoskeletal History: Reports: Arthritis Other Musculoskeletal History: rotator cuff wore out bilateral Other Neuro History: forgetful Psychiatric History: Reports: Depression Endocrine/Metabolic History: Reports: Diabetes, Type II Hematologic History: Reports: Blood Transfusion(s), Iron Deficiency Oncologic (Cancer) History: Reports: Colon, Other (See Below) Other Oncologic History: rectal ca - Infectious Disease History Infectious Disease History: Reports: C-Difficile - Past Surgical History HEENT Surgical History: Reports: None Cardiovascular Surgical History: Reports: None GI Surgical History: Reports: Appendectomy, Colonoscopy, Colostomy, Other (See Below) Endocrine Surgical History: Reports: None Musculoskeletal Surgical History: Reports: Shoulder Surgery Oncologic Surgical History: Reports: Other (See Below) Other Oncologic Surgeries/Procedures: colon resection Dermatological Surgical History: Reports: None Social & Family History - Family History Family Medical History: Noncontributory Cardiac: Reports: Aneurysm, Blood Clots/VTE/DVT, Hypertension, Stent GI: Reports: None : Reports: None OBGYN: Reports: None Musculoskeletal: Reports: None Neurological: Reports: None Psychiatric: Reports: None Endocrine/Metabolic: Reports: None Hematologic: Reports: None Immunologic: Reports: None Dermatologic: Reports: None Oncologic: Reports: None, Breast, Colon, Esophageal - Tobacco Use Smoking Status *Q: Never Smoker Second Hand Smoke Exposure: No - Caffeine Use Caffeine Use: Reports: Coffee - Alcohol Use Days Per Week of Alcohol Use: 0 - Recreational Drug Use Recreational Drug Use: No ED ROS GENERAL - Review of Systems Review Of Systems: See Below Constitutional: Denies: Fever, Decreased Appetite HEENT: Denies: Vertigo, Vision Change Respiratory: Denies: Shortness of Breath, Cough Cardiovascular: Reports: Syncope. Denies: Chest Pain GI/Abdominal: Reports: Diarrhea. Denies: Abdominal Pain, Constipation, Nausea, Vomiting (he did vomit while hospitalized recently.) : Denies: Dysuria Musculoskeletal: Reports: No Symptoms. Denies: Neck Pain Skin: Denies: Cyanosis, Jaundice, Mottled, Pallor, Diaphoresis Neurological: Reports: Pre-Existing Deficit (dementia). Denies: Confusion, Seizure, Trouble Speaking Psychiatric: Denies: Agitation, Anxiety, Confusion Hematologic/Lymphatic: Reports: Easy Bleeding (on Xarelto) ED EXAM, HEAD INJURY - Physical Exam Exam: See Below Exam Limited By: No Limitations General Appearance: Alert, WD/WN, No Apparent Distress Head: Normocephalic, Facial Ecchymosis (inferior left eye lid), Facial Lacerations. No: Scalp Lacerations, Scalp Swelling, Scalp Tenderness, Ortiz's Sign, Facial Abrasions, Raccoon Eyes Nexus Criteria: No: Posterior, Midline Cervical Tenderness Eyes: Bilateral Eye: EOMI, Normal Inspection, PERRL Ears: Normal External Exam, Normal Canal, Hearing Grossly Normal, Normal TMs Nose: Normal Inspection, No Blood Throat/Mouth: Normal Inspection, Normal Lips, Normal Oropharynx, Normal Voice, No Airway Compromise Neck: Non-Tender, Full Range of Motion, Normal Alignment, Normal Inspection. No : Limited Range of Motion, Painful Range of Motion, Paraspinous Muscle Tender, Spinous Processes Tender, Stiff Neck, Tenderness, Tender Lateral, Tender Midline Respiratory: No Respiratory Distress, Lungs Clear, Normal Breath Sounds, No Accessory Muscle Use, Other (inferior and lateral ribs tender to palpation; no crepitus or deformity) Cardiovascular: Regular Rate, Rhythm, No Murmur GI/Abdominal Exam: Soft, Non-Tender, No Distention, Other (LLQ colostomy in place) Extremities: No Evidence of Injury, Normal Range of Motion, Non-Tender, No Pedal Edema Neurologic: neurology manager II-XII nml As Tested, No Motor/Sensory Deficits, Alert, Normal Mood/Affect, Oriented x 3 Skin: Normal Color, Warm/Dry - Francisco Coma Score Best Eye Response (Francisco): (4) Open Spontaneously Best Verbal Response (Francisco): (5) Oriented Best Motor Response (Francisco): (6) Obeys Commands ED LACERATION/WOUND & EMELINA PROC - Laceration/Wound Repair Left Lateral Forehead Lac/wound length in cm: 2 Appearance: Subcutaneous, Linear, Clean Distal NVT: Neuro & Vascular Intact Anesthetic Type: Local Local Anesthesia - Lidocaine (Xylocaine): 2% With EPI Local Anesthetic Volume: 2cc Skin Prep: Providone-Iodine (Betadine) Exploration/Debridement/Repair: Wound Explored, in a Bloodless Field, Explored to Base Closed with: Sutures Suture Size: other (5-0) # of Sutures: 4 Suture Type: Silk, Interrupted, Simple Sterile Dressing Applied: Nurse Tetanus Status Addressed: Yes Course - Vital Signs Last Recorded V/S: Last Vital Signs Temp 98.0 F 02/18/17 12:56 Pulse 100 02/18/17 12:56 Resp 16 02/18/17 12:56 BP 83/54 L 02/18/17 12:56 Pulse Ox 94 L 02/18/17 12:56 - Orders/Labs/Meds Orders: Active Orders 24 hr Category Date Time Status Vaccines to be Administered [RC] PER UNIT ROUTINE Care 02/18/17 15:09 Ordered Head wo Cont [CT] Stat Exams 02/18/17 13:20 Ordered Ribs 2V w Chest Lt [CR] Stat Exams 02/18/17 13:10 Ordered Meds: Medications Discontinued Medications Generic Name Dose Route Start Last Admin Trade Name Freq PRN Reason Stop Dose Admin Diphtheria/Tetanus/Acell Pertussis 0.5 ml 02/18/17 15:08 02/18/17 15:44 Adacel IM 02/18/17 15:09 0.5 ml .ONCE ONE Administration Sodium Chloride 1,000 mls @ 999 mls/hr 02/18/17 14:02 02/18/17 14:00 Normal Saline IV 02/18/17 15:02 999 mls/hr .BOLUS ONE Administration Lidocaine/Epinephrine Confirm 02/18/17 13:22 02/18/17 15:47 Xylocaine-Mpf 2%-Epi 1:200,000 Administered 02/18/17 13:23 Not Given Dose 20 ml .ROUTE .[facility] ONE - Re-Assessments/Exams Free Text/Narrative Re-Assessment/Exam: 02/18/17 15:[address] is normal, Chest xray shows a non-displaced left 7th rib fracture. Gave a liter of NS for dehydration. Sutures placed as in procedure note. Patient stable. Discussed findings. Strongly encouraged 8 cups of water daily. 02/18/17 15:54 A liter of saline is in and blood pressure is stable with standing. Pt has only mild rib discomfort with deep breaths. Discussed findings and treatment plan. Advised follow up with PCP in 3-4 days to recheck and also re-evalute antihypertensive regimen with the hypotension today. Patient stable at discharge. Departure - Departure Time of Disposition: 15:47 Disposition: Home, Self-Care 01 Condition: Good Clinical Impression: Hypovolemia Hypotension Qualifiers: Hypotension type: orthostatic hypotension Qualified Code(s): I95.1 - Orthostatic hypotension Laceration of scalp without complication Qualifiers: Encounter type: initial encounter Qualified Code(s): S01.01XA - Laceration without foreign body of scalp, initial encounter Closed rib fracture Qualifiers: Encounter type: initial encounter Rib fracture type: single rib Laterality: left Qualified Code(s): S22.32XA - Fracture of one rib, left side, initial encounter for closed fracture - Discharge Information Referrals: Josh Ruiz MD [Primary Care Provider] - Additional Instructions: 1. Drink 8 cups of water daily. 2. Walk with care, using walker or other support for safety. 3. Take Tylenol as needed for rib pain; make sure to breathe deeply several times a day to minimize risk of pneumonia. 4. Followup with your PCP in 3-4 days for recheck and evaluation of your need of Lisinopril. - My Orders Last 24 Hours: My Active Orders 02/18/17 13:10 Ribs 2V w Chest Lt [CR] Stat 02/18/17 13:20 Head wo Cont [CT] Stat 02/18/17 15:09 Vaccines to be Administered [RC] PER UNIT ROUTINE - Assessment/Plan Last 24 Hours: My Active Orders 02/18/17 13:10 Ribs 2V w Chest Lt [CR] Stat 02/18/17 13:20 Head wo Cont [CT] Stat 02/18/17 15:09 Vaccines to be Administered [RC] PER UNIT ROUTINE
[2017-02-18] MEDS ORDERED: Lidocaine 2% with EPINEPHrine 1:200,000 20 ML SDV ONE (13:22)
[2017-02-18] MEDS ORDERED: Sodium Chloride 0.9% 1,000 ML IV ONE (14:02)
[2017-02-18] MEDS ORDERED: Diphtheria,Pertussis(Acell),Tetanus Vaccine 0.5 ML SDV IM ONE (15:08)
== END 2017-02-18 16:00 | disposition home or self-care (01) ==
LOC: KA.ED 12:44
DX: S22.32XA Fracture of one rib, left side, initial encounter for closed fracture (principal); S01.81XA Laceration without foreign body of other part of head, initial encounter; S01.01XA Laceration without foreign body of scalp, initial encounter; I95.1 Orthostatic hypotension; E86.1 Hypovolemia; E78.00 Pure hypercholesterolemia, unspecified; E11.9 Type 2 diabetes mellitus without complications; Z90.49 Acquired absence of other specified parts of digestive tract; Z79.899 Other long term (current) drug therapy; W19.XXXA Unspecified fall, initial encounter
CPT/HCPCS: 12011; 70450; 71101; 90471; 90715; 96360; 99284; J7030

== ENCOUNTER 2017-03-09 14:25 | Emergency (ER) | payer MEDICARE, BC ==
[2017-03-09 14:53] VITALS: BP 125/61
[2017-03-09] MEDS ORDERED: Sodium Chloride 0.9% 1,000 ML IV ONE (14:54)
[2017-03-09] MEDS ORDERED: Ondansetron 4 MG/2 ML SDV IVPUSH ONE (14:55)
--- NOTE | 2017-03-09 15:17 | EDM.PDOC ---
ED HPI GENERAL MEDICAL PROBLEM - General Chief Complaint: Gastrointestinal Problem Stated Complaint: Nausea/vomitting Time Seen by Provider: 03/09/17 14:45 Source of Information: Reports: Patient, Family History Limitations: Reports: No Limitations - History of Present Illness INITIAL COMMENTS - FREE TEXT/NARRATIVE: 81 YO WM with PMH of colon CA who presents to ER with intermittent vomiting and decreased appetite x 2.5 weeks. Pt attempted to be seen at [facility] today , but was unable to get an appointment prompting ER evaluation. 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 Pt is afebrile and denies abdominal pain or increased stools. Pt is currently 130 lbs, and has been around this weight for awhile now. Onset Date: 02/23/17 Duration: Week(s): (2) Severity: Mild Improves with: Reports: None Worsens with: Reports: None Associated Symptoms: Reports: No Other Symptoms - Related Data Allergies Allergy/AdvReac Type Severity Reaction Status Date / Time No Known Drug Intolerances Allergy Cannot Verified 03/09/17 14:53 Remember Home Meds: Home Meds Allopurinol [Zyloprim] 200 mg PO DAILY@1800 09/12/14 [History] Cholecalciferol (Vitamin D3) [Vitamin D3] 1,000 units PO DAILY@1800 09/12/14 [ History] Omeprazole [Prilosec] 20 mg PO DAILY@0600 09/12/14 [History] Simvastatin [Zocor] 20 mg PO BEDTIME 09/12/14 [History] Acetaminophen 1,000 mg PO Q6H PRN 11/11/16 [History] Dronabinol [Marinol] 2.5 mg PO BIDAC 11/11/16 [History] Insulin Aspart [Novolog Flexpen] 5 unit SQ TIDMEALS 11/11/16 [History] Insulin Detemir [Levemir] 7 unit SUBCUT BEDTIME 11/11/16 [History] Potassium Chloride [Klor-Con M20] 20 meq PO BID #30 tab.er 01/29/17 [Rx] Escitalopram [Lexapro] 10 mg PO DAILY 02/10/17 [History] L. Acidophilus/Pectin, [place] [Acidophilus Probiotic] 2 each PO DAILY 02/10/17 [ History] Rivaroxaban [Xarelto] 20 mg PO 1800 02/10/17 [History] Polyethylene Glycol 3350 [MiraLAX] 17 gm PO DAILY #1 bottle 02/16/17 [Rx] Vancomycin HCl 1 cap PO QID 02/18/17 [History] Magnesium Oxide 1,000 mg PO DAILY 03/09/17 [History] Ondansetron [Zofran ODT] 4 mg PO Q6H PRN #15 tab.dis 03/09/17 [Rx] Past Medical History HEENT History: Reports: Impaired Vision Cardiovascular History: Reports: Blood Clots/VTE/DVT, Heart Murmur, High Cholesterol, Hypertension, Syncope Respiratory History: Reports: Other (See Below) Other Respiratory History: 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 Gastrointestinal History: Reports: None Other Gastrointestinal History: colon and rectal CA Genitourinary History: Reports: Renal Calculus Other Genitourinary History: 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 Musculoskeletal History: Reports: Arthritis Other Musculoskeletal History: rotator cuff wore out bilateral Other Neuro History: forgetful Psychiatric History: Reports: Depression Endocrine/Metabolic History: Reports: Diabetes, Type II Hematologic History: Reports: Blood Transfusion(s), Iron Deficiency Oncologic (Cancer) History: Reports: Colon, Other (See Below) Other Oncologic History: rectal ca - Infectious Disease History Infectious Disease History: Reports: C-Difficile - Past Surgical History HEENT Surgical History: Reports: None Cardiovascular Surgical History: Reports: None GI Surgical History: Reports: Appendectomy, Colonoscopy, Colostomy, Other (See Below) Endocrine Surgical History: Reports: None Musculoskeletal Surgical History: Reports: Shoulder Surgery Oncologic Surgical History: Reports: Other (See Below) Other Oncologic Surgeries/Procedures: colon resection Dermatological Surgical History: Reports: None Social & Family History - Family History Family Medical History: Noncontributory Cardiac: Reports: Aneurysm, Blood Clots/VTE/DVT, Hypertension, Stent GI: Reports: None : Reports: None OBGYN: Reports: None Musculoskeletal: Reports: None Neurological: Reports: None Psychiatric: Reports: None Endocrine/Metabolic: Reports: None Hematologic: Reports: None Immunologic: Reports: None Dermatologic: Reports: None Oncologic: Reports: None, Breast, Colon, Esophageal - Tobacco Use Smoking Status *Q: Never Smoker Second Hand Smoke Exposure: No - Caffeine Use Caffeine Use: Reports: Coffee - Alcohol Use Days Per Week of Alcohol Use: 0 - Recreational Drug Use Recreational Drug Use: No ED ROS GENERAL - Review of Systems Review Of Systems: See Below Constitutional: Reports: Malaise, Weakness, Decreased Appetite. Denies: Fever, Chills HEENT: Reports: No Symptoms Respiratory: Reports: No Symptoms Cardiovascular: Reports: No Symptoms Endocrine: Reports: No Symptoms GI/Abdominal: Reports: Decreased Appetite, Nausea, Vomiting. Denies: Diarrhea, Distension, Hematemesis, Hematochezia, Melena, Mucous in Stool : Reports: No Symptoms Musculoskeletal: Reports: No Symptoms Skin: Reports: No Symptoms Neurological: Reports: No Symptoms Psychiatric: Reports: No Symptoms Hematologic/Lymphatic: Reports: No Symptoms Immunologic: Reports: No Symptoms ED EXAM, GI/ABD - Physical Exam Exam: See Below Exam Limited By: No Limitations General Appearance: Alert, WD/WN, No Apparent Distress Ears: Normal External Exam, Normal Canal, Hearing Grossly Normal, Normal TMs Nose: Normal Inspection, Normal Mucosa, No Blood Throat/Mouth: Normal Inspection, Normal Lips, Normal Teeth, Normal Gums, Normal Oropharynx, Normal Voice, No Airway Compromise Head: Atraumatic, Normocephalic Neck: Normal Inspection, Supple, Non-Tender, Full Range of Motion Respiratory/Chest: No Respiratory Distress, Lungs Clear, Normal Breath Sounds, No Accessory Muscle Use, Chest Non-Tender Cardiovascular: Normal Peripheral Pulses, Regular Rate, Rhythm, No Edema, No Gallop, No JVD, No Murmur, No Rub GI/Abdominal Exam: Normal Bowel Sounds, Soft, Non-Tender, No Organomegaly, No Distention, No Abnormal Bruit, No Mass, Pelvis Stable Back Exam: Normal Inspection, Full Range of Motion, NT Extremities: Normal Inspection, Normal Range of Motion, Non-Tender, Normal Capillary Refill, No Pedal Edema Neurological: Alert, Oriented, CN II-XII Intact, Normal Cognition, Normal Gait, Normal Reflexes, No Motor/Sensory Deficits Psychiatric: Normal Affect, Normal Mood Skin Exam: Warm, Dry, Intact, Normal Color, No Rash Lymphatic: No Adenopathy Course - Vital Signs Last Recorded V/S: Last Vital Signs Temp 36.6 C 03/09/17 14:50 Pulse 98 03/09/17 14:50 Resp 20 03/09/17 14:50 BP 125/61 03/09/17 14:50 Pulse Ox 97 03/09/17 14:50 - Orders/Labs/Meds Orders: Active Orders 24 hr Category Date Time Status Sodium Chloride 0.9% [Normal Saline] 1,000 ml Med 03/09/17 14:54 Active IV .BOLUS Medication Orders Sodium Chloride (Normal Saline) 1,000 mls @ 999 mls/hr IV .BOLUS ONE Stop: 03/09/17 15:54 Last Admin: 03/09/17 15:04 Dose: 999 mls/hr Labs: Laboratory Tests 03/09/17 03/09/17 Range/Units 14:45 14:45 WBC 7.3 (5.0-10.0) 10^3/uL RBC 3.57 L (4.50-6.00) 10^6/uL Hgb 11.6 L (13.0-17.0) g/dL Hct 33.6 L (40.0-52.0) % MCV 94.0 H (82.0-92.0) fL MCH 32.4 H (27.0-31.0) pg MCHC 34.4 (32.0-36.0) g/dL RDW 13.9 (11.5-14.5) % Plt Count 196 (150-300) 10^3/uL MPV 7.0 L (7.4-10.4) fL Neut % (Auto) 75.3 H (50.0-70.0) % Lymph % (Auto) 10.3 L (20.0-40.0) % [place] % (Auto) 13.6 H (2.0-8.0) % Eos % (Auto) 0.4 L (1.0-3.0) % Baso % (Auto) 0.4 (0.0-1.0) % Neut # (Auto) 5.5 (2.5-7.0) 10^3/uL Lymph # (Auto) 0.8 L (1.0-4.0) 10^3/uL [place] # (Auto) 1.0 H (0.1-0.8) 10^3/uL Eos # (Auto) 0.0 L (0.1-0.3) 10^3/uL Baso # (Auto) 0.0 (0.0-0.1) 10^3/uL Sodium 136 (136-145) mmol/L Potassium 3.6 (3.3-5.3) mmol/L Chloride 98 (98-115) mmol/L Carbon Dioxide 28.8 (21.0-32.0) mmol/L BUN 17 (6-25) mg/dL Creatinine 0.68 (0.51-1.17) mg/dL Est Cr Clr Drug Dosing 69.85 mL/min Estimated GFR (MDRD) > 60 mL/min Glucose 168 H (70-110) mg/dL Calcium 9.2 (8.7-10.3) mg/dL Total Bilirubin 0.6 (0.2-1.0) mg/dL AST 18 (15-37) U/L ALT 25 (12-78) U/L Alkaline Phosphatase 131 H (46-116) IU/L Total Protein 7.3 (6.4-8.2) g/dL Albumin 2.96 L (3.00-4.80) g/dL Lipase 75 (73-393) U/L Meds: Medications Generic Name Dose Route Start Last Admin Trade Name Freq PRN Reason Stop Dose Admin Sodium Chloride 1,000 mls @ 999 mls/hr 03/09/17 14:54 03/09/17 15:04 Normal Saline IV 03/09/17 15:54 999 mls/hr .BOLUS ONE Administration Discontinued Medications Generic Name Dose Route Start Last Admin Trade Name Freq PRN Reason Stop Dose Admin Ondansetron HCl 4 mg 03/09/17 14:55 03/09/17 15:04 Zofran IVPUSH 03/09/17 14:56 4 mg ONETIME ONE Administration Departure - Departure Time of Disposition: 15:33 Disposition: Home, Self-Care 01 Condition: Fair Clinical Impression: Vomiting, Anorexia - Discharge Information Prescriptions: Ondansetron [Zofran ODT] 4 mg PO Q6H PRN #15 tab.dis PRN Reason: Vomiting Instructions: Dehydration, Adult, [id number], Nausea and Vomiting, Adult, [id number] Referrals: Josh Ruiz MD [Primary Care Provider] - Forms: ED Department Discharge - My Orders Last 24 Hours: My Active Orders 03/09/17 14:54 Sodium Chloride 0.9% [Normal Saline] 1,000 ml IV .BOLUS - Assessment/Plan Last 24 Hours: My Active Orders 03/09/17 14:54 Sodium Chloride 0.9% [Normal Saline] 1,000 ml IV .BOLUS Assessment:: 1. nausea/vomiting 2. decreased appetite Plan: 1. zofran 4mg ODT TID PRN 2. follow up with [facility] in am for further management and treatment 3. return to ER for worsening symptoms
[2017-03-09 15:28] LABS: CHLORIDE,CL 98 mmol/L (98-115); SODIUM,NA 136 mmol/L (136-145)
== END 2017-03-09 16:10 | disposition home or self-care (01) ==
LOC: KA.ED 14:25
DX: R11.2 Nausea with vomiting, unspecified (principal); R63.0 Anorexia; I10 Essential (primary) hypertension; E78.00 Pure hypercholesterolemia, unspecified; E11.9 Type 2 diabetes mellitus without complications; F32.9 Major depressive disorder, single episode, unspecified; Z87.442 Personal history of urinary calculi; Z85.038 Personal history of other malignant neoplasm of large intestine; Z90.49 Acquired absence of other specified parts of digestive tract; Z98.890 Other specified postprocedural states; Z79.4 Long term (current) use of insulin; Z79.899 Other long term (current) drug therapy
CPT/HCPCS: 80053; 83690; 85025; 96361; 96374; 99284; J1642; J2405; J7030

== ENCOUNTER 2017-03-11 12:11 | Emergency (ER) | payer MEDICARE, BC ==
[2017-03-11] MEDS ORDERED: Sodium Chloride 0.9% 5 ML Syringe FLUSH PRN (12:35)
[2017-03-11] MEDS ORDERED: Morphine 4 MG/ML Syringe IVPUSH ONE (12:35)
[2017-03-11] MEDS ORDERED: Sodium Chloride 0.9% 1,000 ML IV ONE (12:35)
[2017-03-11] MEDS ORDERED: Ondansetron 4 MG/2 ML SDV IVPUSH ONE (12:35)
--- NOTE | 2017-03-11 12:37 | EDM.PDOC ---
Addendum entered and electronically signed by Bebeto Bethea PA 03/11/17 17:25 : CT abd/pelvis- significant small bowel distention without obvious obstruction. Discussed case with Dr Francisco- [facility] who accepted to his service for surgical consult and further evaluation and treatment. Original Note: ED HPI GENERAL MEDICAL PROBLEM - General Chief Complaint: Abdominal Pain Stated Complaint: ABDOMINAL PAIN Time Seen by Provider: 03/11/17 12:20 Source of Information: Reports: Patient, Family History Limitations: Reports: No Limitations - History of Present Illness INITIAL COMMENTS - FREE TEXT/NARRATIVE: 81 YO WM presents to ER with recurrent abdominal pain and nausea. Pt was seen in ER 3 days ago for similar symptoms and was given zofran and had lab work which was all normal. Pt was referred to [facility] for further evaluation and treatment. Pt is currently on Hospice and palliative care. Pt came back to ER for continued pain and expectation of CT abs/pelvis eval. Pt denies any fever /chills, nausea/vomiting, or constipation/diarrhea. Onset Date: 03/04/17 Duration: Chronic Location: Reports: Abdomen Quality: Reports: Ache Severity: Mild Improves with: Reports: None Worsens with: Reports: None Abdomen Pain Score (Numeric/FACES): 8 - Related Data Allergies Allergy/AdvReac Type Severity Reaction Status Date / Time No Known Drug Intolerances Allergy Cannot Verified 03/09/17 14:53 Remember Home Meds: Home Meds Allopurinol [Zyloprim] 200 mg PO DAILY@1800 09/12/14 [History] Cholecalciferol (Vitamin D3) [Vitamin D3] 1,000 units PO DAILY@1800 09/12/14 [ History] Omeprazole [Prilosec] 20 mg PO DAILY@0600 09/12/14 [History] Simvastatin [Zocor] 20 mg PO BEDTIME 09/12/14 [History] Acetaminophen 1,000 mg PO Q6H PRN 11/11/16 [History] Dronabinol [Marinol] 2.5 mg PO BIDAC 11/11/16 [History] Insulin Aspart [Novolog Flexpen] 5 unit SQ TIDMEALS 11/11/16 [History] Insulin Detemir [Levemir] 7 unit SUBCUT BEDTIME 11/11/16 [History] Potassium Chloride [Klor-Con M20] 20 meq PO BID #30 tab.er 01/29/17 [Rx] Escitalopram [Lexapro] 10 mg PO DAILY 02/10/17 [History] L. Acidophilus/Pectin, [place] [Acidophilus Probiotic] 2 each PO DAILY 02/10/17 [ History] Rivaroxaban [Xarelto] 20 mg PO 1800 02/10/17 [History] Polyethylene Glycol 3350 [MiraLAX] 17 gm PO DAILY #1 bottle 02/16/17 [Rx] Vancomycin HCl 1 cap PO BID 02/18/17 [History] Magnesium Oxide 1,000 mg PO DAILY 03/09/17 [History] Ondansetron [Zofran ODT] 4 mg PO Q6H PRN #15 tab.dis 03/09/17 [Rx] Past Medical History HEENT History: Reports: Impaired Vision Cardiovascular History: Reports: Blood Clots/VTE/DVT, Heart Murmur, High Cholesterol, Hypertension, Syncope Respiratory History: Reports: Other (See Below) Other Respiratory History: 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 Gastrointestinal History: Reports: None Other Gastrointestinal History: colon and rectal CA Genitourinary History: Reports: Renal Calculus Other Genitourinary History: 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 Musculoskeletal History: Reports: Arthritis Other Musculoskeletal History: rotator cuff wore out bilateral Other Neuro History: forgetful Psychiatric History: Reports: Depression Endocrine/Metabolic History: Reports: Diabetes, Type II Hematologic History: Reports: Blood Transfusion(s), Iron Deficiency Oncologic (Cancer) History: Reports: Colon, Other (See Below) Other Oncologic History: rectal ca - Infectious Disease History Infectious Disease History: Reports: C-Difficile - Past Surgical History HEENT Surgical History: Reports: None Cardiovascular Surgical History: Reports: None GI Surgical History: Reports: Appendectomy, Colonoscopy, Colostomy, Other (See Below) Endocrine Surgical History: Reports: None Musculoskeletal Surgical History: Reports: Shoulder Surgery Oncologic Surgical History: Reports: Other (See Below) Other Oncologic Surgeries/Procedures: colon resection Dermatological Surgical History: Reports: None Social & Family History - Family History Family Medical History: Noncontributory Cardiac: Reports: Aneurysm, Blood Clots/VTE/DVT, Hypertension, Stent GI: Reports: None : Reports: None OBGYN: Reports: None Musculoskeletal: Reports: None Neurological: Reports: None Psychiatric: Reports: None Endocrine/Metabolic: Reports: None Hematologic: Reports: None Immunologic: Reports: None Dermatologic: Reports: None Oncologic: Reports: None, Breast, Colon, Esophageal - Tobacco Use Smoking Status *Q: Never Smoker Second Hand Smoke Exposure: No - Caffeine Use Caffeine Use: Reports: Coffee - Alcohol Use Days Per Week of Alcohol Use: 0 - Recreational Drug Use Recreational Drug Use: No ED ROS GENERAL - Review of Systems Review Of Systems: See Below Constitutional: Reports: No Symptoms HEENT: Reports: No Symptoms Respiratory: Reports: No Symptoms Cardiovascular: Reports: No Symptoms Endocrine: Reports: No Symptoms GI/Abdominal: Reports: Abdominal Pain, Anorexia, Decreased Appetite, Nausea : Reports: No Symptoms Musculoskeletal: Reports: No Symptoms Skin: Reports: No Symptoms Neurological: Reports: No Symptoms Psychiatric: Reports: No Symptoms Hematologic/Lymphatic: Reports: No Symptoms Immunologic: Reports: No Symptoms ED EXAM, GI/ABD - Physical Exam Exam: See Below Exam Limited By: No Limitations General Appearance: Alert, WD/WN, No Apparent Distress Neck: Normal Inspection, Supple, Non-Tender, Full Range of Motion Respiratory/Chest: No Respiratory Distress, Lungs Clear, Normal Breath Sounds, No Accessory Muscle Use, Chest Non-Tender Cardiovascular: Normal Peripheral Pulses, Regular Rate, Rhythm, No Edema, No Gallop, No JVD, No Murmur, No Rub GI/Abdominal Exam: Normal Bowel Sounds, Soft, No Organomegaly, No Distention, No Abnormal Bruit, No Mass, Pelvis Stable, Tender Back Exam: Normal Inspection, Full Range of Motion, NT Extremities: Normal Inspection, Normal Range of Motion, Non-Tender, Normal Capillary Refill, No Pedal Edema Neurological: Alert, Oriented, CN II-XII Intact, Normal Cognition, Normal Gait, Normal Reflexes, No Motor/Sensory Deficits Psychiatric: Normal Affect, Normal Mood Skin Exam: Warm, Dry, Intact, Normal Color, No Rash Lymphatic: No Adenopathy Course - Vital Signs Last Recorded V/S: Last Vital Signs Temp 35.7 C 03/11/17 12:35 Pulse 122 H 03/11/17 12:35 Resp 20 03/11/17 12:35 BP 92/69 03/11/17 12:35 Pulse Ox 96 03/11/17 12:35 - Orders/Labs/Meds Orders: Active Orders 24 hr Category Date Time Status Peripheral IV Care [RC] . DIRECTED Care 03/11/17 12:35 Active Abdomen Pelvis w Cont [CT] Stat Exams 03/11/17 12:35 Ordered Sodium Chloride 0.9% [Normal Saline] 1,000 ml Med 03/11/17 12:35 Active IV .BOLUS Sodium Chloride 0.9% [Syrex Flush] Med 03/11/17 12:35 Active 5 ml FLUSH Q8HR PRN Peripheral IV Insertion Adult [OM.PC] Routine Oth 03/11/17 12:35 Ordered Medication Orders Sodium Chloride (Normal Saline) 1,000 mls @ 999 mls/hr IV .BOLUS ONE Stop: 03/11/17 13:35 Sodium Chloride (Syrex Flush) 5 ml FLUSH Q8HR PRN PRN Reason: Keep Vein Open Labs: Laboratory Tests 03/11/17 03/11/17 Range/Units 12:45 12:45 WBC 8.9 (5.0-10.0) 10^3/uL RBC 3.60 L (4.50-6.00) 10^6/uL Hgb 11.5 L (13.0-17.0) g/dL Hct 33.9 L (40.0-52.0) % MCV 94.2 H (82.0-92.0) fL MCH 31.9 H (27.0-31.0) pg MCHC 33.9 (32.0-36.0) g/dL RDW 14.1 (11.5-14.5) % Plt Count 211 (150-300) 10^3/uL MPV 6.7 L (7.4-10.4) fL Neut % (Auto) 77.2 H (50.0-70.0) % Lymph % (Auto) 8.9 L (20.0-40.0) % [place] % (Auto) 13.1 H (2.0-8.0) % Eos % (Auto) 0.2 L (1.0-3.0) % Baso % (Auto) 0.6 (0.0-1.0) % Neut # (Auto) 6.8 (2.5-7.0) 10^3/uL Lymph # (Auto) 0.8 L (1.0-4.0) 10^3/uL [place] # (Auto) 1.2 H (0.1-0.8) 10^3/uL Eos # (Auto) 0.0 L (0.1-0.3) 10^3/uL Baso # (Auto) 0.1 (0.0-0.1) 10^3/uL Sodium 133 L (136-145) mmol/L Potassium 3.6 (3.3-5.3) mmol/L Chloride 98 (98-115) mmol/L Carbon Dioxide 27.0 (21.0-32.0) mmol/L BUN 16 (6-25) mg/dL Creatinine 0.73 (0.51-1.17) mg/dL Est Cr Clr Drug Dosing TNP Estimated GFR (MDRD) > 60 mL/min Glucose 135 H (70-110) mg/dL Calcium 8.9 (8.7-10.3) mg/dL Total Bilirubin 0.6 (0.2-1.0) mg/dL AST 20 (15-37) U/L ALT 25 (12-78) U/L Alkaline Phosphatase 125 H (46-116) IU/L Total Protein 7.0 (6.4-8.2) g/dL Albumin 2.91 L (3.00-4.80) g/dL Lipase 127 (73-393) U/L Meds: Medications Generic Name Dose Route Start Last Admin Trade Name Freq PRN Reason Stop Dose Admin Sodium Chloride 1,000 mls @ 999 mls/hr 03/11/17 12:35 Normal Saline IV 03/11/17 13:35 .BOLUS ONE Sodium Chloride 5 ml 03/11/17 12:35 Syrex Flush FLUSH Q8HR PRN Keep Vein Open Discontinued Medications Generic Name Dose Route Start Last Admin Trade Name Freq PRN Reason Stop Dose Admin Morphine Sulfate 4 mg 03/11/17 12:35 Morphine IVPUSH 03/11/17 12:36 ONETIME ONE Ondansetron HCl 4 mg 03/11/17 12:35 Zofran IVPUSH 03/11/17 12:36 ONETIME ONE Departure - Departure Time of Disposition: 13:31 Disposition: Admitted As Inpatient 65 Condition: Poor Clinical Impression: Anorexia, Vomiting Abdominal pain Qualifiers: Abdominal location: generalized Qualified Code(s): R10.84 - Generalized abdominal pain - Discharge Information - My Orders Last 24 Hours: My Active Orders 03/11/17 12:35 Peripheral IV Care [RC] . DIRECTED Abdomen Pelvis w Cont [CT] Stat Sodium Chloride 0.9% [Normal Saline] 1,000 ml IV .BOLUS Sodium Chloride 0.9% [Syrex Flush] 5 ml FLUSH Q8HR PRN Peripheral IV Insertion Adult [OM.PC] Routine - Assessment/Plan Last 24 Hours: My Active Orders 03/11/17 12:35 Peripheral IV Care [RC] . DIRECTED Abdomen Pelvis w Cont [CT] Stat Sodium Chloride 0.9% [Normal Saline] 1,000 ml IV .BOLUS Sodium Chloride 0.9% [Syrex Flush] 5 ml FLUSH Q8HR PRN Peripheral IV Insertion Adult [OM.PC] Routine Assessment:: 1. abdominal pain 2. anorexia 3. nausea 4. colon CA Plan: 1. admit to [facility] for further management and treatment 2. supportive care 3. IVF 4. pain and antiemetic medication 5. consider long-term placement
[2017-03-11 13:19] LABS: CHLORIDE,CL 98 mmol/L (98-115); SODIUM,NA 133 mmol/L (136-145)
[2017-03-11] MEDS ORDERED: Sodium Chloride 0.9% 50 ML SDV FLUSH SCH (15:15)
[2017-03-11] MEDS: Iopamidol 612 MG/ML 75 ML Bottle IV ONE (16:30)
[2017-03-11 17:08] VITALS: BP 112/69
[2017-03-11] MEDS ORDERED: Sodium Chloride 0.9% 1,000 ML IV SCH (18:00)
[2017-03-13] MEDS: Iopamidol 612 MG/ML 75 ML Bottle IV ONE (08:11)
== END 2017-03-11 18:05 ==
LOC: KA.ED 12:11
DX: R10.84 Generalized abdominal pain (principal); R63.0 Anorexia; R11.10 Vomiting, unspecified; C18.9 Malignant neoplasm of colon, unspecified; E11.9 Type 2 diabetes mellitus without complications; K63.89 Other specified diseases of intestine; E78.00 Pure hypercholesterolemia, unspecified; I10 Essential (primary) hypertension; Z79.4 Long term (current) use of insulin; Z79.899 Other long term (current) drug therapy; Z86.718 Personal history of other venous thrombosis and embolism; Z98.890 Other specified postprocedural states
CPT/HCPCS: 36415; 74177; 80053; 83690; 85025; 96361; 96374; 96375; 99285; J2270; J2405; J7030; Q9967